=== PATIENT | male | born 1945 | race African-American/Black ===

== ENCOUNTER 2016-10-31 11:04 | Inpatient (IN) ==
[2016-10-31] MEDS ORDERED: diphenhydrAMINE CAP 25 MG CAPSULE PO PRN (12:17)
[2016-10-31] MEDS ORDERED: BISACODYL 5 MG TABLET PO PRN (12:17)
[2016-10-31] MEDS ORDERED: ZALEPLON 5 MG CAPSULE PO PRN (12:17)
[2016-10-31] MEDS ORDERED: guaiFENesin/DM ER 600-30 MG TABLET PO PRN (12:17)
[2016-10-31] MEDS ORDERED: DOCUSATE SODIUM 100 MG CAPSULE PO PRN (12:17)
[2016-10-31] MEDS ORDERED: ONDANSETRON 4 MG/2 ML VIAL IV PRN (12:17)
[2016-10-31] MEDS ORDERED: ACETAMINOPHEN 325 MG TABLET PO PRN ×2 (12:17→15:51)
[2016-10-31] MEDS ORDERED: LACTULOSE 20 GM/30 ML UDCUP PO PRN (12:17)
--- NOTE | 2016-10-31 15:38 | Nephrology History & Physical ---
History of Present Illness Chief complaint: Pain and weakness History of present illness: Mr. Orozco is a 71 year old male who I follow in the outpatient setting for chronic kidney disease. The patient was seen in my office today. He complains of pain and weakness that started about a week ago. The patient states his pain started in his right foot and migrated up and his right leg going into his abdomen and into his left chest area over the past few days. The patient is also had decreased strength and decreased appetite during this time. The patient has been seen and the emergency room 2 in the past few days. He was given some antibiotics about a week ago and received some kind of shot yesterday in the emergency room. The patient also complains of shortness of breath during this time. The patient is taking Lasix as well as a lipid- lowering agent in the form of Lipitor he also is on Neurontin and was recently prescribed some tramadol. He denies any fever or chills. ROS: Head -positive headaches ENT -positive sore throat Lymphatics - denies lymphadenopathy Hematology - denies bleeding problems Heart - denies chest pain Lungs -positive shortness of breath Abdomen -positive abdominal pain Musculoskeletal -positive arthritis Skin - denies rash Neurology - denies stroke General - denies fever PE: General: in no acute distress Eyes: Pupils are round and reactive, conjunctivae are clear ENT: Nose is clear, O/P is benign Neck: Supple, no thyromegaly Lymphatics: No cervical, supraclavicular or axillary adenopathy Heart: Regular rate and rhythm, no edema Lungs: Clear to auscultation anteriorly, chest expansion symmetric Abdomen: Soft, normoactive bowel sounds, no hepatomegaly Musculoskeletal: No joint erythema or effusions or joint asymmetry Skin: Normal turgor, normal hydration, no rash Neuro/Psych: Alert and cooperative with poor insight Home Medications Medication Instructions Recorded Confirmed Type Amlodipine Besylate 5 mg PO DAILY 10/31/16 10/31/16 History Amlodipine Besylate 10 mg PO DAILY 10/31/16 10/31/16 History Aspirin [Ecotrin] 81 mg PO DAILY 10/31/16 10/31/16 History Atorvastatin Calcium 40 mg PO DAILY 10/31/16 10/31/16 History Furosemide [Furosemide] 40 mg PO DAILY 10/31/16 10/31/16 History Gabapentin [Gabapentin] 300 mg PO BID 10/31/16 10/31/16 History Isosorbide Mononitrate [Imdur] 30 mg PO DAILY 10/31/16 10/31/16 History Nebivolol [Bystolic] 10 mg PO DAILY 10/31/16 10/31/16 History Ranolazine [Ranexa] 500 mg PO BID 10/31/16 10/31/16 History Sodium Bicarb Tab 650 mg PO BID 10/31/16 10/31/16 History traMADol/ACETAMINOPH 37.5-325 1 tablet PO Q6H PRN 10/31/16 10/31/16 History [Ultracet] Allergies Allergy/AdvReac Type Severity Reaction Status Date / Time meperidine [From Demerol] AdvReac HIVES Verified 10/28/16 13:56 Medical,Surgical,& Family Hx - Medical History Cardio: History of: CHF, Hypertension HEENT: History of: Eye Problem (glasses) Rheumatology: History of;: Gout Renal: History of: Renal Failure Gastrointestinal: History of: GERD, Hemorrhoids Musculoskeletal: History of: Back/Neck Problems (back surgery) - Family History Family History: Reports;: Family Diabetes, Family Hypertension - Social History Smoking Status: Current every day smoker Frequency of Alcohol Use: None Exam - Nephrology - Vital Signs Vital signs: Vital Signs Temp Pulse Resp BP Pulse Ox 10/31/16 12:22 99.4 F 58 L 17 147/77 97 Assessment and Plan (1) Kidney disease, chronic, stage IV (GFR 15-29 ml/min) Status: Acute Assessment and plan: This patient's creatinine is increased to 6 mg/dL from around 5 mg/dL a month or 2 ago. The patient has had some decreased appetite and feeling weak lately I wonder if he is volume depleted. I am going to give him some normal saline at 125 cc an hour for the next 12-24 hours. Current Visit: Yes (2) Hypertension Status: Acute Assessment and plan: I am going to hold his Lasix, we may also need to decrease some of his rate lowering antihypertensives due to his heart rate being 58 currently and his associated symptoms of weakness. Current Visit: Yes (3) Hyperlipidemia Status: Acute Assessment and plan: I am going to hold his lipid-lowering agents due to his complaints of musculoskeletal pain Current Visit: Yes (4) History of congestive heart failure Status: Acute Assessment and plan: Patient has complaints of dyspnea on exertion presently, I am going to check an echocardiogram. Current Visit: Yes (5) Arthritis Status: Acute Current Visit: No
[2016-10-31] MEDS ORDERED: traMADol 50 MG TABLET PO PRN (15:43)
[2016-10-31] MEDS ORDERED: hydrALAZINE 10 MG TABLET PO PRN (15:45)
[2016-10-31] MEDS: SODIUM CHLORIDE 0.9% 1,000 ML IV SCH ×2 (15:47→22:41)
[2016-10-31] MEDS: GABAPENTIN 300 MG CAPSULE PO SCH (20:59)
[2016-10-31] MEDS: SODIUM BICARBONATE 650 MG TABLET PO SCH (20:59)
[2016-10-31] MEDS: RANOLAZINE 500 MG TABLET PO SCH (20:59)
[2016-11-01 03:43] LABS: Basophils % 0.3 % (0.0-0.8); Eosinophils # 0.8 10*3/uL (0.0-0.87); Eosinophils % 10.6 % (0.00-10.9); Hematocrit 28.4 VOL% (42.0-52.0); Hemoglobin 8.6 GM/DL (14.0-18.0); Immature Granulocytes % 0.6 %; Immature Granulocytes Absolute 0.05 #; Lymphocytes # 4.2 10*3/uL (1.4-4.0); Lymphocytes % 53.7 % (21.2-54.2); Mean Corpuscular HGB Conc 30.3 GM/DL (32-36); Mean Corpuscular Hemoglobin 28 PG (27-34); Mean Corpuscular Volume 92.2 FL (87-102); Mean Platelet Volume 12.6 FL (9.6-12.0); Monocytes # 0.5 10*3/uL (0.11-0.8); Monocytes % 6.5 % (1.7-12.7); NRBC # 0.02 10*3/uL; Neutrophils # 2.2 10*3/uL (1.4-7.4); Neutrophils % 28.3 % (38.7-73.9); Platelet Count 151 T/CUMM (130-400); Red Blood Count 3.08 MC/CUMM (3.8-5.5); Red Cell Distribution Width 13.9 % (9.3-17.3); White Blood Count 7.8 T/CUMM (4-12)
[2016-11-01 04:22] LABS: Alanine Aminotransferase 26 U/L (16-61); Albumin 2.8 G/DL (3.4-5.0); Alkaline Phosphatase 81 U/L (45-117); Aspartate Amino Transferase 30 U/L (0-37); Blood Urea Nitrogen 59 MG/DL (7-18); Cholesterol 120 MG/DL (50-200); Free T4 (Free Thyroxine) 1.07 NG/DL (0.76-1.46); Glucose 72 MG/DL (74-106); HDL Cholesterol 23 MG/DL (40-60); Osmolality,Calculated 301.8 MOS/KG (273-304); Phosphorous 2.9 MG/DL (2.5-4.9); Potassium 5.2 MMOL/L (3.5-5.1); Risk Ratio 5.22; Sodium 144 MMOL/L (136-145); Total Protein 5.8 G/DL (6.4-8.3); Triglycerides 230 MG/DL (2-150); Troponin I Only 0.033 NG/ML (0.00-0.045)
[2016-11-01 06:07] LABS: Eosinophils 5 % (0-10); Lymphocytes 55 % (20-55); Myelocytes 3 %; Platelet Estimate Adequate; Segmented Neutrophils 32 % (50-85); Total Cells Counted 100
[2016-11-01] MEDS: SODIUM CHLORIDE 0.9% 1,000 ML IV SCH ×3 (06:34→18:42)
[2016-11-01] MEDS: amLODIPine 5 MG TABLET PO SCH (09:51)
[2016-11-01] MEDS: GABAPENTIN 300 MG CAPSULE PO SCH ×2 (09:51→22:06)
[2016-11-01] MEDS: PANTOPRAZOLE 40 MG TABLET PO SCH (09:51)
[2016-11-01] MEDS: RANOLAZINE 500 MG TABLET PO SCH ×2 (09:51→22:06)
[2016-11-01] MEDS: ASPIRIN EC 81 MG TABLET PO SCH (09:51)
[2016-11-01] MEDS: SODIUM BICARBONATE 650 MG TABLET PO SCH ×2 (09:51→22:06)
[2016-11-01] MEDS: NEBIVOLOL 5 MG TABLET PO SCH (09:51)
[2016-11-01] MEDS: ISOSORBIDE MONONITRATE 30 MG TABLET PO SCH (09:51)
--- NOTE | 2016-11-01 13:55 | ECHO Report ---
Petty Orozco Exam Date: 11/01/2016 10:52 Referring Physician: Technologist: Dorinda SOOD Age: 71 Ht (in): Wt (lb): Gender: M Exam Location: [facility] Echo Indications: CHF, Hyperlipidemia, HTN, CKD BP: / HR: Rhythm: Sinus Technical Quality: IMPRESSIONS Technically adequate study Normal chamber sizes Normal LV systolic function with ejection fraction estimated be 65% without segmental wall motion normality Aortic sclerosis without stenosis 1+ mitral and tricuspid regurgitation with RVSP 22 mmHg plus RAP MEASUREMENTS (Male / Female) Normal Values 2D ECHO LV Diastolic Diameter PLAX 3.1 cm 4.2 - 5.9 / 3.9 - 5.3 cm LV Systolic Diameter PLAX 1.7 cm LV Fractional Shortening PLAX 43.6 % IVS Diastolic Thickness 1.8 cm 0.6 - 1.0 / 0.6 - 0.9 cm LVPW Diastolic Thickness 1.1 cm 0.6 - 1.0 / 0.6 - 0.9 cm RV Internal Dim ED PLAX 2.6 cm Aortic Root Diameter 2.7 cm LA Systolic Diameter LX 3.5 cm 3.0 - 4.0 / 2.7 - 3.8 cm DOPPLER TR Peak Velocity 232.0 cm/s TR Peak Gradient 21.5 mmHg FINDINGS Left Ventricle Normal left ventricular cavity size. Mild concentric left ventricular hypertrophy.left ventricular ejection fraction is estimated at Right Ventricle Normal right ventricular size. Right Atrium Normal right atrial size. Left Atrium Normal left atrial size. Mitral Valve Mild mitral valve sclerosis. Mild mitral valve regurgitation. Aortic Valve Mild aortic valve sclerosis without stenosis. Tricuspid Valve Morphologically normal tricuspid valve. Mild tricuspid valve regurgitation. Tricuspid regurgitation velocities suggest a PAP of 21.5 mmHg + RAP. Pulmonic Valve Morphologically normal pulmonic valve. Pericardium No pericardial effusion. Aorta Normal size aortic root and proximal ascending aorta. Omar Hickey (Electronically Signed) Final Date: 01 November 2016 13:54
--- NOTE | 2016-11-01 17:50 | Nephrology Progress Note ---
Nephrology - PN: Subj Interval history: Patient complains of occasional left-sided chest pain. He states it is fleeting in nature lasting a few seconds. Review of systems GI denies nausea vomiting Physical exam general the patient is in no acute distress he has no pitting edema, his chest pain is not reproduced with palpation Assessment/plan 1. Acute renal failure on chronic renal failure-this patient's creatinine is improved with IV fluids 2. Body aches-this patient's diffuse body aches have improved with IV fluids 3. Hypertension this is controlled 4. Anemia-patient's hematocrit is 28% Exam (PN)-Nephrology - Vital Signs Vital signs: Period Temp Pulse Resp BP Sys/[place] Pulse Ox Last 24 Hr 97.3 F-99 F 53-77 16-19 127-146/63-79 94-100 - Lab 11/01/16 02:48 11/01/16 02:48 Most recent lab results Calcium 7.0 MG/DL (8.5-10.1) L 11/01/16 02:48 Phosphorus 2.9 MG/DL (2.5-4.9) 11/01/16 02:48 Magnesium 2.0 MG/DL (1.8-2.4) 11/01/16 02:48 Assessment and Plan (1) Kidney disease, chronic, stage IV (GFR 15-29 ml/min) Status: Acute Assessment and plan: This patient's creatinine is increased to 6 mg/dL from around 5 mg/dL a month or 2 ago. The patient has had some decreased appetite and feeling weak lately I wonder if he is volume depleted. I am going to give him some normal saline at 125 cc an hour for the next 12-24 hours. Current Visit: Yes (2) Hypertension Status: Acute Assessment and plan: I am going to hold his Lasix, we may also need to decrease some of his rate lowering antihypertensives due to his heart rate being 58 currently and his associated symptoms of weakness. Current Visit: Yes (3) Hyperlipidemia Status: Acute Assessment and plan: I am going to hold his lipid-lowering agents due to his complaints of musculoskeletal pain Current Visit: Yes (4) History of congestive heart failure Status: Acute Assessment and plan: Patient has complaints of dyspnea on exertion presently, I am going to check an echocardiogram. Current Visit: Yes (5) Arthritis Status: Acute Current Visit: No
[2016-11-02] MEDS: SODIUM CHLORIDE 0.9% 1,000 ML IV SCH (02:30)
[2016-11-02 03:44] LABS: Basophils % 0.2 % (0.0-0.8); Eosinophils # 0.7 10*3/uL (0.0-0.87); Eosinophils % 9.1 % (0.00-10.9); Hematocrit 25.5 VOL% (42.0-52.0); Hemoglobin 7.6 GM/DL (14.0-18.0); Immature Granulocytes % 0.7 %; Immature Granulocytes Absolute 0.06 #; Lymphocytes # 4.5 10*3/uL (1.4-4.0); Lymphocytes % 55.7 % (21.2-54.2); Mean Corpuscular HGB Conc 29.8 GM/DL (32-36); Mean Corpuscular Hemoglobin 28 PG (27-34); Mean Corpuscular Volume 92.7 FL (87-102); Mean Platelet Volume 12.8 FL (9.6-12.0); Monocytes # 0.5 10*3/uL (0.11-0.8); Monocytes % 6.2 % (1.7-12.7); NRBC # 0.03 10*3/uL; Neutrophils # 2.3 10*3/uL (1.4-7.4); Neutrophils % 28.1 % (38.7-73.9); Platelet Count 140 T/CUMM (130-400); Red Blood Count 2.75 MC/CUMM (3.8-5.5); Red Cell Distribution Width 14.1 % (9.3-17.3); White Blood Count 8.1 T/CUMM (4-12)
[2016-11-02 04:07] LABS: Calcium 6.6 MG/DL (8.5-10.1); Osmolality,Calculated 301.4 MOS/KG (273-304); Potassium 5.2 MMOL/L (3.5-5.1)
[2016-11-02 04:24] LABS: Band Neutrophils 2 % (0-10); Eosinophils 3 % (0-10); Lymphocytes 57 % (20-55); Segmented Neutrophils 33 % (50-85); Smudge Cells Moderate; Total Cells Counted 100
[2016-11-02 04:25] LABS: Platelet Estimate Normal
[2016-11-02] MEDS: SODIUM BICARBONATE 650 MG TABLET PO SCH ×2 (09:21→22:07)
[2016-11-02] MEDS: RANOLAZINE 500 MG TABLET PO SCH ×2 (09:21→22:06)
[2016-11-02] MEDS: amLODIPine 5 MG TABLET PO SCH (09:21)
[2016-11-02] MEDS: GABAPENTIN 300 MG CAPSULE PO SCH ×2 (09:21→22:06)
[2016-11-02] MEDS: PANTOPRAZOLE 40 MG TABLET PO SCH (09:21)
[2016-11-02] MEDS: NEBIVOLOL 5 MG TABLET PO SCH (09:21)
[2016-11-02] MEDS: ISOSORBIDE MONONITRATE 30 MG TABLET PO SCH (09:21)
[2016-11-02] MEDS: ASPIRIN EC 81 MG TABLET PO SCH (09:21)
--- NOTE | 2016-11-02 10:35 | Nephrology Progress Note ---
Nephrology - PN: Subj Interval history: Patient complains of abdominal pain this morning. Review of systems cardiac- patient complains of left-sided chest pain when asked about it. Physical exam general the patient is in no acute distress Assessment/plan 1. Acute renal failure-this patient's creatinine is improved to 3.3 mg/dL with saline, I think he was volume depleted. 2. Abdominal pain-patient has a significant anemia of 25%, he states he has not had any endoscopy, I am going to ask GI medicine to see him in the morning, I will check stool for blood 3. Chest pain-this patient has mild tricuspid and mitral regurgitation he also has bradycardia, I am going to ask cardiology to evaluate him in the morning. 4. Chronic pain-this patient had some cold symptoms about a week or so ago and was having diffuse pain, I think his volume depletion is probably secondary to his viral syndrome, some of his body aches and pains may be related to this as well. Of note the patient has a history of chronic pain. Exam (PN)-Nephrology - Vital Signs Vital signs: Period Temp Pulse Resp BP Sys/[place] Pulse Ox Last 24 Hr 97.3 F-99.5 F 51-77 16-20 107-146/46-79 94-100 - Lab 11/02/16 03:23 11/02/16 03:23 Most recent lab results Calcium 6.6 MG/DL (8.5-10.1) L 11/02/16 03:23 Phosphorus 2.9 MG/DL (2.5-4.9) 11/01/16 02:48 Magnesium 2.0 MG/DL (1.8-2.4) 11/01/16 02:48 Assessment and Plan (1) Kidney disease, chronic, stage IV (GFR 15-29 ml/min) Status: Acute Assessment and plan: This patient's creatinine is increased to 6 mg/dL from around 5 mg/dL a month or 2 ago. The patient has had some decreased appetite and feeling weak lately I wonder if he is volume depleted. I am going to give him some normal saline at 125 cc an hour for the next 12-24 hours. Current Visit: Yes (2) Hypertension Status: Acute Assessment and plan: I am going to hold his Lasix, we may also need to decrease some of his rate lowering antihypertensives due to his heart rate being 58 currently and his associated symptoms of weakness. Current Visit: Yes (3) Hyperlipidemia Status: Acute Assessment and plan: I am going to hold his lipid-lowering agents due to his complaints of musculoskeletal pain Current Visit: Yes (4) History of congestive heart failure Status: Acute Assessment and plan: Patient has complaints of dyspnea on exertion presently, I am going to check an echocardiogram. Current Visit: Yes (5) Arthritis Status: Acute Current Visit: No
[2016-11-02] MEDS: SODIUM BICARB INJ 50 MEQ in DEXTROSE 5% 1,000 ML IV SCH (22:06)
--- NOTE | 2016-11-03 09:08 | Gastrointestinal Consult Note ---
Assessment and Plan (1) Generalized abdominal pain Status: Acute Assessment and plan: I suspect this may be due to chronic constipation as the patient has pain both in his right lower quadrant and epigastric region although the latter may certainly be related to his anemia and aspirin intake on a daily basis. He seems to feel better when he is empty of stool and typically has only one bowel movement per week. We will be doing a bowel prep today as I will make him n.p.o. after this breakfast meal and hopefully be able to get him clean enough to perform colonoscopy tomorrow. If the colonoscopy fails to show bleeding source we may likely follow this with a upper endoscopy the following day. Risks and benefits of the procedure include but are not limited to: Bleeding, infection, perforation, cardiac and pulmonary compromise. He is at higher risk because of his renal dysfunction. Current Visit: Yes (2) Chronic constipation Status: Acute Assessment and plan: Patient goes to the bathroom once weekly. He would be a good candidate for Linzess 290 mg daily 30 minutes prior to supper or MiraLAX twice daily repeat 3 times daily or twice daily either one. We will likely start with MiraLAX when he has an outpatient status. Would like to keep him from having excessive magnesium intake due to his kidney dysfunction. Current Visit: Yes (3) Guaiac positive stools Status: Acute Assessment and plan: It is unclear whether this is due to a bleeding lesion either in his colon or upper GI tract. The patient does take aspirin on a routine basis and we will hold this now. Anticipate colonoscopy tomorrow, hopefully we can rule out colorectal cancer and AVMs as a potential source for the blood loss. Again, I expect the pain is likely secondary to constipation. Current Visit: Yes (4) Anemia Status: Acute Assessment and plan: The patient certainly has anemia secondary to his renal dysfunction but with guaiac positive stools this is likely multifactorial. We will look for in the colon initially and possibly follow this with upper endoscopy if nothing is found. Current Visit: Yes History of Present Illness Chief complaint: Right lower quadrant pain greater than epigastric pain, anemia , guaiac posi History of present illness: Mr. Orozco is a 71 year old male Who has a history of chronic kidney disease and was having pain and weakness starting a week prior to his hospitalization according to Dr. Briceño's notes. Patient states that he has abdominal pain spread through most of his abdomen centering mostly in the epigastric region but also right lower quadrant but also in the epigastric region with some mild reflux present. He does not have any nausea or vomiting he does not have any decrease in his appetite. He has not noticed any black stools or bright red blood per rectum. He states that he does have approximately 1 bowel movement per week as he is frequently constipated. He takes stool softeners and some milk of magnesia for this. The patient does take some aspirin each day and is noted to be guaiac positive on his stools. Hematocrit is down to 25%. He does not recall a family history of colon cancer or colon polyps. He has never had a colonoscopy himself. He does not have reflux. Home Medications Medication Instructions Recorded Confirmed Type Amlodipine Besylate 5 mg PO DAILY 10/31/16 10/31/16 History Amlodipine Besylate 10 mg PO DAILY 10/31/16 10/31/16 History Aspirin [Ecotrin] 81 mg PO DAILY 10/31/16 10/31/16 History Atorvastatin Calcium 40 mg PO DAILY 10/31/16 10/31/16 History Furosemide [Furosemide] 40 mg PO DAILY 10/31/16 10/31/16 History Gabapentin [Gabapentin] 300 mg PO BID 10/31/16 10/31/16 History Isosorbide Mononitrate [Imdur] 30 mg PO DAILY 10/31/16 10/31/16 History Nebivolol [Bystolic] 10 mg PO DAILY 10/31/16 10/31/16 History Ranolazine [Ranexa] 500 mg PO BID 10/31/16 10/31/16 History Sodium Bicarb Tab 650 mg PO BID 10/31/16 10/31/16 History traMADol/ACETAMINOPH 37.5-325 1 tablet PO Q6H PRN 10/31/16 10/31/16 History [Ultracet] Allergies Allergy/AdvReac Type Severity Reaction Status Date / Time meperidine [From Demerol] AdvReac HIVES Verified 10/28/16 13:56 Medical,Surgical,& Family Hx - Medical History Cardio: History of: CHF, Hypertension HEENT: History of: Eye Problem (glasses), Dental Problems (dentures) Rheumatology: History of;: Gout Renal: History of: Renal Failure Gastrointestinal: History of: GERD, Hemorrhoids Musculoskeletal: History of: Back/Neck Problems (back surgery) - Surgical History Reproductive Surgeries: Surgical HX of;: Prostate Surgery (cancer) - Family History Family History: Reports;: Family Cancer, Family Diabetes, Family Heart Disease, Family Hypertension, Family Stroke - Social History Smoking Status: Current every day smoker Frequency of Alcohol Use: None Type of Drug Use: None Review of systems: Constitutional: Denies fever, chills, nausea, and vomiting Eyes: Denies dry eyes, and scleral icterus HENT: Denies headaches Cardiovascular: Denies acute chest pain and claudication Respiratory: Mild shortness of breath, but no wheezing, and difficulty breathing, denies cough Gastrointestinal: As noted in the HPI Genitourinary: Denies dysuria and hematuria Neurologic: Denies vision loss, and loss of sensation Musculoskeletal: Denies joint swelling, but does have some joint stiffness, and muscular weakness Psychiatric: Denies depression and yaakov symptoms Heme-Lymph: Denies easy bruising, lymph node enlargement or tenderness, night sweats, excessive bleeding Allergies-immunologic: Denies pruritus and rhinorrhea Exam - Constitutional Vitals: Period Temp Pulse Resp BP Sys/[place] Pulse Ox Last 24 Hr 98 F-98.8 F 56-66 16-19 127-143/61-73 94-98 Exam: Constitutional: Well-developed, well-nourished, alert, and in no acute distress Head and face: Head: Normocephalic atraumatic Eyes: Conjunctiva without injection, no gross scleral icterus, pupils equal and round bilaterally Ears: Intact to conversation in both ears Nose: External appearance is normal, nares patent Mouth: Oral mucous membranes moist without erythema dentition noted to be without erosion Neck: Normal appearance, no masses or tenderness, trachea midline Thyroid: Gland midline and appropriate size for age Respiratory: Normal respiratory effort, clear to auscultation without wheezes, rhonchi or rales Cardiovascular: Regular rate and rhythm, normal S1, S2, the exam is without rubs, murmurs or gallops. Gastrointestinal: Nontender to palpation, normal active bowel sounds, tone normal without rigidity or guarding, no masses present, no hepatomegaly, no spleen tip felt. Rectal exam shows good tone stool was present brown and grossly guaiac positive. Lymphatic: Neck without adenopathy, axilla without lymphadenopathy present Musculoskeletal: Right and left lower extremities without evidence of edema Skin and subcutaneous tissue: No rashes or ulcerations noted, normal skin turgor, digits and nails without clubbing/cyanosis/deformities. Neurologic: The patient is grossly oriented to person place and time, cranial nerves show tongue movements are normal with normal tongue extrusion midline, light touch sensation is intact. Psychiatric: No hallucinations or delusions are present, does not appear depressed Results - Labs CBC & BMP: 11/02/16 03:23 11/02/16 03:23
[2016-11-03] MEDS: RANOLAZINE 500 MG TABLET PO SCH ×2 (09:39→22:31)
[2016-11-03] MEDS: PANTOPRAZOLE 40 MG TABLET PO SCH (09:39)
[2016-11-03] MEDS: ISOSORBIDE MONONITRATE 30 MG TABLET PO SCH (09:39)
[2016-11-03] MEDS: GABAPENTIN 300 MG CAPSULE PO SCH ×2 (09:39→22:31)
[2016-11-03] MEDS: NEBIVOLOL 5 MG TABLET PO SCH (09:39)
[2016-11-03] MEDS: amLODIPine 5 MG TABLET PO SCH (09:39)
[2016-11-03] MEDS: SODIUM BICARBONATE 650 MG TABLET PO SCH ×2 (09:39→22:31)
[2016-11-03] MEDS: BISACODYL 5 MG TABLET PO SCH ×2 (09:41→18:12)
[2016-11-03] MEDS: ASPIRIN EC 81 MG TABLET PO SCH (09:42)
--- NOTE | 2016-11-03 10:33 | Nephrology Progress Note ---
Nephrology - PN: Subj Interval history: Patient states his chest pain is better. Review of systems musculoskeletal- patient complains of leg pains and weakness when he walks lately. Physical exam general the patient is in no acute distress Assessment/plan 1. Volume depletion-patient responded to IV fluids he is feeling better and his creatinine is much improved 2. Acute renal failure-patient's creatinine is down to 3.3 mg/dL from around 6 mg/dL on presentation 3. Hypertension is controlled 4. Anemia-patient's hematocrit around 25%, the patient is to get an endoscopic workup by Dr. Bailey. 5. Leg weakness-this patient may have leg weakness associated with his anemia as well as his bradycardia, I will see what cardiology thinks as far as his bradycardia if they do not feel there is any major issues here then we will probably give him a blood transfusion and see if this helps his leg weakness 6. Bradycardia-I am decreased the patient's Bystolic to 5 mg daily from 10 mg daily, I will probably continue to wean him off of this over the next week or 2. Exam (PN)-Nephrology - Vital Signs Vital signs: Period Temp Pulse Resp BP Sys/[place] Pulse Ox Last 24 Hr 98 F-98.8 F 56-66 16-19 127-143/61-73 94-98 - Lab 11/02/16 03:23 11/02/16 03:23 Most recent lab results Calcium 6.6 MG/DL (8.5-10.1) L 11/02/16 03:23 Phosphorus 2.9 MG/DL (2.5-4.9) 11/01/16 02:48 Magnesium 2.0 MG/DL (1.8-2.4) 11/01/16 02:48 Assessment and Plan (1) Kidney disease, chronic, stage IV (GFR 15-29 ml/min) Status: Acute Assessment and plan: This patient's creatinine is increased to 6 mg/dL from around 5 mg/dL a month or 2 ago. The patient has had some decreased appetite and feeling weak lately I wonder if he is volume depleted. I am going to give him some normal saline at 125 cc an hour for the next 12-24 hours. Current Visit: Yes (2) Hypertension Status: Acute Assessment and plan: I am going to hold his Lasix, we may also need to decrease some of his rate lowering antihypertensives due to his heart rate being 58 currently and his associated symptoms of weakness. Current Visit: Yes (3) Hyperlipidemia Status: Acute Assessment and plan: I am going to hold his lipid-lowering agents due to his complaints of musculoskeletal pain Current Visit: Yes (4) History of congestive heart failure Status: Acute Assessment and plan: Patient has complaints of dyspnea on exertion presently, I am going to check an echocardiogram. Current Visit: Yes (5) Arthritis Status: Acute Current Visit: No
--- NOTE | 2016-11-03 10:42 | Cardiology Consult Note ---
Assessment and Plan - Time spent with patient Time spent with patient: Greater than 30 minutes (chart review, documentation, interview/physical and orders) (1) PVD (peripheral vascular disease) Status: Chronic Current Visit: Yes (2) CAD (coronary artery disease) Status: Chronic Current Visit: Yes Qualifiers: Coronary Disease-Associated Artery/Lesion type: [place] artery [place] vs. transplanted heart: [place] heart Associated angina: without angina Qualified Code(s): I25.10 - Atherosclerotic heart disease of [place] coronary artery without angina pectoris (3) Kidney disease, chronic, stage IV (GFR 15-29 ml/min) Status: Chronic Current Visit: Yes (4) Hypertension Status: Acute Current Visit: Yes (5) Hyperlipidemia Status: Chronic Current Visit: Yes Qualifiers: Hyperlipidemia type: pure hypercholesterolemia Qualified Code(s): E78.00 - Pure hypercholesterolemia, unspecified; E78.0 - Pure hypercholesterolemia (6) Generalized abdominal pain Status: Chronic Current Visit: Yes (7) Chronic constipation Status: Chronic Current Visit: Yes (8) Anemia Status: Chronic Current Visit: Yes Qualifiers: Other causes of anemia: chronic disease, kidney History of Present Illness - Data of Consult Patient: known to practice within the last 3 years Consult date: 11/03/16 Requesting Physician: Nik Briceño - Consult Narrative Reason for consult: Bradycardia shortness of breath chest pain History of present illness: Mr. Orozco is a 71 year old male whom I have seen in the remote past. The last record I can see I saw him in 2010. He has now been followed by Dr. Asencio at [facility]. Patient's medication regimen would suggest that he has some degree of coronary artery disease that cannot be treated surgically, endovascularly and is currently on medical therapy. When I talked to the patient I actually do not get the story that he has any chest pain. He states that his legs limit his activity particularly his right leg. Has a history of significant amount of pelvic discomfort was felt to be related to his prostate as well. He has peripheral vessel disease and has previously had stenting of his lower extremities. He is now admitted with acute on chronic renal insufficiency which largely limits our evaluation of his lower extremity vasculature and any contrast for cardiac situation. His heart rate is in the 50s. He denies any chest pain to me. He quit smoking 2 weeks ago. CC: Nik Briceño MD - Home Medications and Allergies Home Medications: Home Medications Medication Instructions Recorded Confirmed Type Amlodipine Besylate 5 mg PO DAILY 10/31/16 10/31/16 History Amlodipine Besylate 10 mg PO DAILY 10/31/16 10/31/16 History Aspirin [Ecotrin] 81 mg PO DAILY 10/31/16 10/31/16 History Atorvastatin Calcium 40 mg PO DAILY 10/31/16 10/31/16 History Furosemide [Furosemide] 40 mg PO DAILY 10/31/16 10/31/16 History Gabapentin [Gabapentin] 300 mg PO BID 10/31/16 10/31/16 History Isosorbide Mononitrate [Imdur] 30 mg PO DAILY 10/31/16 10/31/16 History Nebivolol [Bystolic] 10 mg PO DAILY 10/31/16 10/31/16 History Ranolazine [Ranexa] 500 mg PO BID 10/31/16 10/31/16 History Sodium Bicarb Tab 650 mg PO BID 10/31/16 10/31/16 History traMADol/ACETAMINOPH 37.5-325 1 tablet PO Q6H PRN 10/31/16 10/31/16 History [Ultracet] Allergies/Adverse Reactions: Allergies Allergy/AdvReac Type Severity Reaction Status Date / Time meperidine [From Demerol] AdvReac HIVES Verified 10/28/16 13:56 - Constitutional Constitutional: Present: fatigue, weight loss. Absent: anorexia, fever(s), frequent falls, increased appetite, lethargy - EENT Eyes: Absent: blurry vision, diplopia Ears: Absent: decreased hearing, ear discharge Nose, mouth and throat: Absent: dysphagia, epistaxis - Cardiovascular Cardiovascular: Present: claudication, dyspnea, dyspnea on exertion. Absent: chest pain at rest, chest pain with activity, diaphoresis, edema, orthopnea - Respiratory Respiratory: Present: cough, dyspnea, dyspnea on exertion - Gastrointestinal Gastrointestinal: Present: abdominal pain, constipation - Genitourinary Genitourinary: Present: other (Pelvic pain) - Musculoskeletal Musculoskeletal: Present: arthralgias, back pain - Neurological Neurological: Present: memory loss. Absent: abnormal speech, behavioral changes , confusion, disequilibrium - Psychiatric Psychiatric: Absent: anxiety, auditory hallucinations, depression - Endocrine Endocrine: Present: cold intolerance. Absent: heat intolerance - Hematologic/Lymphatic Hematologic/Lymphatic: Absent: easy bleeding, easy bruising Medical,Surgical,& Family Hx - Medical History Cardio: History of: CHF, CAD, Hypertension, PVD HEENT: History of: Eye Problem (glasses), Dental Problems (dentures) Rheumatology: History of;: Gout Renal: History of: Renal Failure Gastrointestinal: History of: GERD, Hemorrhoids Musculoskeletal: History of: Back/Neck Problems (back surgery) - Surgical History Reproductive Surgeries: Surgical HX of;: Prostate Surgery (cancer and lots of pelvic pain post prostatectomy) - Family History Family History: Reports;: Family Cancer, Family Diabetes, Family Heart Disease, Family Hypertension, Family Stroke - Social History Smoking Status: Current every day smoker Frequency of Alcohol Use: None Type of Drug Use: None Lives With:: Alone Functional capacity: independent ambulation Physical Examination Vital Signs Temp Pulse Resp BP Pulse Ox 99.4 F 58 L 17 147/77 97 10/31/16 12:22 10/31/16 12:22 10/31/16 12:22 10/31/16 12:22 10/31/16 12:22 General: Present: Appears Well HEENT: Present: Normocephaly (mild temporal atrophy), Mucus Membranes Moist Cardiac: Present: Reg Rate and Rhythm, S1/S2, S4 Lungs: Present: Normal Exam Neuro: Present: Cranial Nerve 2-12 Intact Abdomen: Present: Soft, Active Bowel Sounds Extremities: Present: Cool, Other (1+ FA on the left and weaker on the right. ) . Absent: Edema Result/EKG - Labs CBC & BMP: 11/02/16 03:23 11/02/16 03:23
--- NOTE | 2016-11-03 12:37 | EKG Report ---
Stationary ECG Study [facility] Test Date: 11/03/2016 12:36:45 PM Pat Name: YVAN GARCIA Department: Room: 336 Gender: M Inspector Tubes: CAN : 1945 Requested by: Bobbi Mcduffie Order Number: [id number] Reading MD: GLADYS VILLAR Intervals [place] Rate: 66 P: 55 CA: 201 QRS: 19 QRSD: 97 T: -40 QT: 415 QTc: 429 Interpretive Statements SINUS RHYTHM ST DEVIATION AND MODERATE T-WAVE ABNORMALITY, CONSIDER INFERIOR ISCHEMIA Electronically Signed On 11-03-16 15:32:25 CDT by GLADYS VILLAR [email or web address]
[2016-11-03] MEDS ORDERED: POLYETHYLENE GLYCOL 3350/ELECTROLYTES 4,000 ML BOTTLE PO ONE (18:00)
[2016-11-03] MEDS: SODIUM BICARB INJ 50 MEQ in DEXTROSE 5% 1,000 ML IV SCH (19:19)
[2016-11-03] MEDS ORDERED: MAGNESIUM CITRATE 300 ML BOTTLE PO ONE (21:00)
[2016-11-04] MEDS: BISACODYL 5 MG TABLET PO SCH (01:33)
[2016-11-04] MEDS ORDERED: LIDOCAINE 100 MG/5 ML SYRINGE ONE (08:03)
[2016-11-04] MEDS ORDERED: PROPOFOL 200 MG/20 ML VIAL IV ONE (08:03)
--- NOTE | 2016-11-04 08:19 | Operative Note ---
Date of procedure: 11/04/16 Pre-op diagnosis: Periumbilical pain, anemia 25.5%, guaiac positive stools, constipation Post-op diagnosis: other (Mild left-sided diverticulosis, and moderate sized internal hemorrhoids--possibly the source of the guaiac positive stools) Procedure: PROCEDURE: Colonoscopy REFERRING PHYSICIAN: Nik Briceño MD INDICATIONS: Constipation, periumbilical pain/generalized abdominal pain, anemia with hematocrit of 25.5% and guaiac positive stools. The prior H&P was reviewed and interrim changes are as noted: No change from GI consultation yesterday ENDOSCOPIST: Chintan Bailey MD ENDOSCOPE: Olympus Video 100 System colonoscope COLON PREPARATION: Golytely 4 liters and dulcolax 15 mg po [id number] x 3 ASA CLASS: 3 EXAM: CV: regular rate and rhythm Respiratory: Clear without wheezes Abdominal: active bowel sounds Rectal: Good tone, no fissures or fistulas MEDICATION: Per nursing anesthesia protocol, see their notes PROCEDURE: After discussion of the potential risks and benefits of colonoscopy, the informed consent was obtained, from patient or health care surrogate. The patient was then placed in the left lateral decubitus position where sedation was achieved as noted above. Rectal examination was followed by insertion of the colonoscope. The colonoscope was passed under direct visualization to the cecum. Advancement was facilitated by insertion/withdrawl techniques, abdominal pressure and patient positioning. Once the cecal pole was reached, slow withdrawal was performed with the findings as noted below. The patient tolerated the procedure well and without complication. QUALITY OF PREP: Excellent WITHDRAWL TIME: 8 minutes 3 seconds BIOPSIES: None obtained obtained PHOTOGRAPHS: Mild left-sided FINDINGS: The musoca appeared normal in the following regions: rectum, sigmoid colon, descending colon, splenic flexure, transverse colon, hepatic flexure, ascending colon and cecum. Position within the cecum was confirmed by ileocecal valve, appendiceal oriface, and the convergence of folds (crows foot) . No colitis, polyp, mass or AVM was noted throughout the colon. Mild left- sided diverticulosis noted. Moderate sized internal hemorrhoids noted on retroflex. Intubation of the TI was achieved x 5 cm with normal appearence IMPRESSION: Mild left-sided diverticulosis, and moderate sized internal hemorrhoids--possibly the source of the guaiac positive stools RECOMMENDATIONS: High fiber diet Repeat colonosocopy will be in 10 years given the appearance of today's colonoscopy Citrucel 1 tablespoon in 12 oz juice BID: 1 bottle: :11 Follow up by phone for biopsy results in 1-2 weeks by phone Chintan Bailey MD COPY TO: Nik Briceño MD Anesthesia: MAC Surgeon / Physician: Chintan Bailey Estimated blood loss: minimal Specimens: none sent Condition: stable Disposition: post procedure unit (G.I. Suite) Results - Labs CBC & BMP: 11/02/16 03:23 11/02/16 03:23 Discharge Plan - Discharge Medications No Action traMADol/ACETAMINOPH 37.5-325 [Ultracet] 1 tablet PO Q6H PRN PRN Reason: Pain Ranolazine [Ranexa] 500 mg PO BID Isosorbide Mononitrate [Imdur] 30 mg PO DAILY Sodium Bicarb Tab 650 mg PO BID Aspirin [Ecotrin] 81 mg PO DAILY Gabapentin [Gabapentin] 300 mg PO BID Nebivolol [Bystolic] 10 mg PO DAILY Furosemide [Furosemide] 40 mg PO DAILY Atorvastatin Calcium 40 mg PO DAILY Amlodipine Besylate 10 mg PO DAILY Amlodipine Besylate 5 mg PO DAILY - Follow Up or Referral - Forms/Instructions
--- NOTE | 2016-11-04 08:24 | Gastrointestinal Progress Note ---
Assessment and Plan (1) Generalized abdominal pain Status: Chronic Assessment and plan: I suspect this may be due to chronic constipation as the patient has pain both in his right lower quadrant and epigastric region although the latter may certainly be related to his anemia and aspirin intake on a daily basis. He seems to feel better when he is empty of stool and typically has only one bowel movement per week. We will be doing a bowel prep today as I will make him n.p.o. after this breakfast meal and hopefully be able to get him clean enough to perform colonoscopy tomorrow. If the colonoscopy fails to show bleeding source we may likely follow this with a upper endoscopy the following day. Risks and benefits of the procedure include but are not limited to: Bleeding, infection, perforation, cardiac and pulmonary compromise. He is at higher risk because of his renal dysfunction. 11/04/16--this patient has essentially a normal-looking colonoscopy without evidence of polyps, colitis, AVMs or other bleeding source. There is no evidence of cancer, there are moderate size internal hemorrhoids noted on retroflex thought to be a source of the guaiac positive stool. Given his abdominal pain and anemia I think it is reasonable to perform upper endoscopy with potential biopsies for sprue tomorrow morning. We will continue leave this patient on Protonix but advance his diet to renal diet making him n.p.o. after midnight for the above upper endoscopy tomorrow. If this appears to be normal I think you could likely be discharged from the hospital from a GI standpoint. No biopsies were taken during the colonoscopy. Current Visit: Yes (2) Chronic constipation Status: Chronic Assessment and plan: Patient goes to the bathroom once weekly. He would be a good candidate for Linzess 290 mg daily 30 minutes prior to supper or MiraLAX twice daily repeat 3 times daily or twice daily either one. We will likely start with MiraLAX when he has an outpatient status. Would like to keep him from having excessive magnesium intake due to his kidney dysfunction. 11/04/16--colonoscopy demonstrated no evidence of structural changes or kinking seen throughout the colon. This patient will likely do well with MiraLAX versus Linzess as an outpatient to control his underlying constipation. We will start with MiraLAX. Current Visit: Yes (3) Guaiac positive stools Status: Acute Assessment and plan: It is unclear whether this is due to a bleeding lesion either in his colon or upper GI tract. The patient does take aspirin on a routine basis and we will hold this now. Anticipate colonoscopy tomorrow, hopefully we can rule out colorectal cancer and AVMs as a potential source for the blood loss. Again, I expect the pain is likely secondary to constipation. 11/04/16--the source for the guaiac positive stools is unclear however the patient does have moderate size internal hemorrhoids noted on retroflex thought to be a potential source. Upper endoscopy is recommended at this point to look for other sources of the patient's hematocrit dropped to 25% aside from his renal dysfunction. Current Visit: Yes (4) Anemia Status: Chronic Assessment and plan: The patient certainly has anemia secondary to his renal dysfunction but with guaiac positive stools this is likely multifactorial. We will look for in the colon initially and possibly follow this with upper endoscopy if nothing is found. 11/04/16--We will proceed with upper endoscopy tomorrow as had been mentioned above. Colonoscopy is negative for bleeding source. Current Visit: Yes Qualifiers: Other causes of anemia: chronic disease, kidney Gastroenterology - PN: Subj Interval history: No new complaints, CBC not rechecked. We will recheck this tomorrow morning. Exam (Progress Note) - Constitutional Vitals: Period Temp Pulse Resp BP Sys/[place] Pulse Ox Last 24 Hr 96.3 F-98.7 F 53-68 17-18 131-145/60-74 96-98 General appearance: no acute distress - Respiratory Respiratory exam: Present: clear to auscultation bilaterally - Cardiovascular Cardiovascular exam: Present: regular rate and rhythm - GI/Abdominal GI/Abdominal exam: Present: normal bowel sounds, soft. Absent: distended, tenderness, rebound - Extremities Exam Extremities exam: Present: normal inspection - Neurological Exam Neurological exam: Present: alert, oriented X3, CN II-XII intact - Psychiatric Psychiatric exam: Present: normal affect, normal mood - Skin Skin exam: Present: warm Results - Labs CBC & BMP: 11/02/16 03:23 11/02/16 03:23
--- NOTE | 2016-11-04 08:30 | Anesthesia ---
Anesthesia Post OP - Post Ansesthetic Evaluation Patient seen in post op: Yes Resp: within normal limits CV: within normal limits Mental: within normal limits Temp: within normal limits [id number]: within normal limits Nausea and Vomiting: within normal limits Pain: within normal limits
[2016-11-04] MEDS: ISOSORBIDE MONONITRATE 30 MG TABLET PO SCH (10:37)
[2016-11-04] MEDS: NEBIVOLOL 5 MG TABLET PO SCH (10:37)
[2016-11-04] MEDS: SODIUM BICARBONATE 650 MG TABLET PO SCH ×2 (10:38→22:48)
[2016-11-04] MEDS: RANOLAZINE 500 MG TABLET PO SCH ×2 (10:38→22:48)
[2016-11-04] MEDS: amLODIPine 5 MG TABLET PO SCH (10:38)
[2016-11-04] MEDS: GABAPENTIN 300 MG CAPSULE PO SCH ×2 (10:38→22:48)
[2016-11-04] MEDS: PANTOPRAZOLE 40 MG TABLET PO SCH (10:38)
--- NOTE | 2016-11-04 10:58 | Cardiology Progress Note ---
Assessment and Plan - Time spent with patient Time spent with patient: Less than 30 minutes (1) PVD (peripheral vascular disease) Status: Chronic Current Visit: Yes (2) CAD (coronary artery disease) Status: Chronic Current Visit: Yes Qualifiers: Coronary Disease-Associated Artery/Lesion type: [place] artery [place] vs. transplanted heart: [place] heart Associated angina: without angina Qualified Code(s): I25.10 - Atherosclerotic heart disease of [place] coronary artery without angina pectoris (3) Kidney disease, chronic, stage IV (GFR 15-29 ml/min) Status: Chronic Current Visit: Yes (4) Hypertension Status: Acute Current Visit: Yes (5) Hyperlipidemia Status: Chronic Current Visit: Yes Qualifiers: Hyperlipidemia type: pure hypercholesterolemia Qualified Code(s): E78.00 - Pure hypercholesterolemia, unspecified; E78.0 - Pure hypercholesterolemia (6) Generalized abdominal pain Status: Chronic Current Visit: Yes (7) Chronic constipation Status: Chronic Current Visit: Yes (8) Anemia Status: Chronic Current Visit: Yes Qualifiers: Other causes of anemia: chronic disease, kidney Cardiology - PN: Subj Interval history: Mr. Gimenez has no complaints today. He is back from his colonoscopy he is alert and awake. He denies any chest pain or shortness of breath and he is maintaining a heart rate in the mid 60s to low 70s. No chest pain. 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 Have nothing further to add at this time and will sign off. If new problems arise please do not hesitate to call I will be glad to see. Exam (Progress Note) - Constitutional Vitals: Period Temp Pulse Resp BP Sys/[place] Pulse Ox Last 24 Hr 96.3 F-98.7 F 52-68 12-18 100-145/53-74 94-98 General appearance: normal weight - Head Head exam: Present: normal inspection - Eye Eye exam: Present: EOMI Pupils: Present: MARIN - Neck Neck exam: Present: normal inspection - Respiratory Respiratory exam: Present: clear to auscultation bilaterally - Cardiovascular Cardiovascular exam: Present: regular rate and rhythm - GI/Abdominal GI/Abdominal exam: Present: normal bowel sounds - Extremities Exam Extremities exam: Present: normal inspection - Neurological Exam Neurological exam: Present: alert, oriented X3 - Psychiatric Psychiatric exam: Present: normal affect, normal mood - Skin Skin exam: Present: normal color, warm, dry Result/EKG - Labs CBC & BMP: 11/02/16 03:23 11/02/16 03:23
--- NOTE | 2016-11-04 11:42 | Nephrology Progress Note ---
Nephrology - PN: Subj Interval history: Patient continues to complain of pain and weakness in his legs especially with exertion. He reports that he had stents placed in his legs for circulation problems about 4 years ago however this did not help. Review of systems pulmonary he denies shortness of breath Physical exam general patient is in no acute distress Assessment/plan 1. Acute renal failure-this is improving 2. Leg weakness-I suspect this is multifactorial in etiology related to his anemia, his valvular heart disease, and he is peripheral vascular disease. I am considering giving him a blood transfusion 3. GI bleed-this patient had heme positive stools, he has not had a severe GI bleed he had hemorrhoids visualized on his colonoscopy, he is to have a upper endoscopy tomorrow 4. Tobacco dependence Exam (PN)-Nephrology - Vital Signs Vital signs: Period Temp Pulse Resp BP Sys/[place] Pulse Ox Last 24 Hr 96.3 F-98.7 F 52-68 12-18 100-145/53-74 94-98 - Lab 11/02/16 03:23 11/02/16 03:23 Most recent lab results Calcium 6.6 MG/DL (8.5-10.1) L 11/02/16 03:23 Phosphorus 2.9 MG/DL (2.5-4.9) 11/01/16 02:48 Magnesium 2.0 MG/DL (1.8-2.4) 11/01/16 02:48 Assessment and Plan (1) Kidney disease, chronic, stage IV (GFR 15-29 ml/min) Status: Chronic Assessment and plan: This patient's creatinine is increased to 6 mg/dL from around 5 mg/dL a month or 2 ago. The patient has had some decreased appetite and feeling weak lately I wonder if he is volume depleted. I am going to give him some normal saline at 125 cc an hour for the next 12-24 hours. Current Visit: Yes (2) Hypertension Status: Acute Assessment and plan: I am going to hold his Lasix, we may also need to decrease some of his rate lowering antihypertensives due to his heart rate being 58 currently and his associated symptoms of weakness. Current Visit: Yes (3) Hyperlipidemia Status: Chronic Assessment and plan: I am going to hold his lipid-lowering agents due to his complaints of musculoskeletal pain Current Visit: Yes Qualifiers: Hyperlipidemia type: pure hypercholesterolemia Qualified Code(s): E78.00 - Pure hypercholesterolemia, unspecified; E78.0 - Pure hypercholesterolemia (4) History of congestive heart failure Status: Acute Assessment and plan: Patient has complaints of dyspnea on exertion presently, I am going to check an echocardiogram. Current Visit: Yes (5) Arthritis Status: Acute Current Visit: No
[2016-11-04] MEDS: SODIUM BICARB INJ 50 MEQ in DEXTROSE 5% 1,000 ML IV SCH (22:49)
[2016-11-05 02:54] LABS: Basophils % 0.4 % (0.0-0.8); Eosinophils # 0.5 10*3/uL (0.0-0.87); Eosinophils % 5.6 % (0.00-10.9); Hematocrit 25.2 VOL% (42.0-52.0); Hemoglobin 7.9 GM/DL (14.0-18.0); Immature Granulocytes % 2.4 %; Immature Granulocytes Absolute 0.21 #; Lymphocytes # 4.2 10*3/uL (1.4-4.0); Lymphocytes % 47.2 % (21.2-54.2); Mean Corpuscular HGB Conc 31.3 GM/DL (32-36); Mean Corpuscular Hemoglobin 28 PG (27-34); Mean Corpuscular Volume 89.7 FL (87-102); Mean Platelet Volume 13.1 FL (9.6-12.0); Monocytes # 0.7 10*3/uL (0.11-0.8); Monocytes % 8.3 % (1.7-12.7); NRBC # 0.03 10*3/uL; Neutrophils # 3.2 10*3/uL (1.4-7.4); Neutrophils % 36.1 % (38.7-73.9); Platelet Count 189 T/CUMM (130-400); Red Blood Count 2.81 MC/CUMM (3.8-5.5); Red Cell Distribution Width 14.3 % (9.3-17.3); White Blood Count 8.9 T/CUMM (4-12)
[2016-11-05 03:49] LABS: Anisocytosis 1+; Band Neutrophils 1 % (0-10); Eosinophils 4 % (0-10); Hypochromasia 1+; Lymphocytes 37 % (20-55); Myelocytes 6 %; Platelet Estimate Adequate; Segmented Neutrophils 50 % (50-85); Total Cells Counted 100
[2016-11-05] MEDS ORDERED: COLCHICINE 0.6 MG TABLET PO ONE ×2 (09:02→14:29)
--- NOTE | 2016-11-05 09:02 | Nephrology Progress Note ---
Nephrology - PN: Subj Interval history: Patient complains of left foot pain he thinks he is getting gout in it. He complains of a bump coming up on his lower leg on the left. Review of systems pulmonary denies shortness of breath Physical exam general the patient in no acute distress, he has some tenderness overlying his lower left leg to palpation, there is no erythema or increased temperature Assessment/plan 1. Acute renal failure-we will check a BMP in the morning 2. Anemia-patient's to have a upper endoscopy done today 3. Left foot pain-I will give him a dose of colchicine today and check a uric acid level tomorrow Exam (PN)-Nephrology - Vital Signs Vital signs: Period Temp Pulse Resp BP Sys/[place] Pulse Ox Last 24 Hr 98.1 F-100.6 F 64-88 18-20 122-142/57-74 96-98 - Lab 11/05/16 02:15 11/02/16 03:23 Most recent lab results Calcium 6.6 MG/DL (8.5-10.1) L 11/02/16 03:23 Phosphorus 2.9 MG/DL (2.5-4.9) 11/01/16 02:48 Magnesium 2.0 MG/DL (1.8-2.4) 11/01/16 02:48 Assessment and Plan (1) Kidney disease, chronic, stage IV (GFR 15-29 ml/min) Status: Chronic Assessment and plan: This patient's creatinine is increased to 6 mg/dL from around 5 mg/dL a month or 2 ago. The patient has had some decreased appetite and feeling weak lately I wonder if he is volume depleted. I am going to give him some normal saline at 125 cc an hour for the next 12-24 hours. Current Visit: Yes (2) Hypertension Status: Acute Assessment and plan: I am going to hold his Lasix, we may also need to decrease some of his rate lowering antihypertensives due to his heart rate being 58 currently and his associated symptoms of weakness. Current Visit: Yes (3) Hyperlipidemia Status: Chronic Assessment and plan: I am going to hold his lipid-lowering agents due to his complaints of musculoskeletal pain Current Visit: Yes Qualifiers: Hyperlipidemia type: pure hypercholesterolemia Qualified Code(s): E78.00 - Pure hypercholesterolemia, unspecified; E78.0 - Pure hypercholesterolemia (4) History of congestive heart failure Status: Acute Assessment and plan: Patient has complaints of dyspnea on exertion presently, I am going to check an echocardiogram. Current Visit: Yes (5) Arthritis Status: Inactive Current Visit: No
[2016-11-05 09:04] LABS: Albumin 3.1 G/DL (3.4-5.0); Bilirubin,Total 0.5 MG/DL (0.2-1.0); Calcium 7.5 MG/DL (8.5-10.1); Osmolality,Calculated 287.8 MOS/KG (273-304); Potassium 4.7 MMOL/L (3.5-5.1); Total Protein 6.8 G/DL (6.4-8.3)
[2016-11-05] MEDS ORDERED: LIDOCAINE 1% 5 ML VIAL ONE (13:07)
[2016-11-05] MEDS ORDERED: PROPOFOL 200 MG/20 ML VIAL IV ONE (13:07)
--- NOTE | 2016-11-05 13:18 | Operative Note ---
Date of procedure: 11/05/16 Pre-op diagnosis: Anemia with guaiac positive stools and basically negative colonoscopy Post-op diagnosis: other (This patient has mild erythema suspicious for some low -grade esophagitis, retained fluid in the stomach suspicious for gastroparesis, linear erosive gastritis thought to be the source of the patient's blood loss ( along with renal dysfunction) and some erosive duodenitis as well. Biopsies are pending to rule out Helicobacter pylori.) Procedure: PROCEDURE: Esophagogastroduodenoscopy (EGD) with cold biopsy for pathology REFERRING PHYSICIAN: Nik Briceño MD INDICATIONS: Anemia with hematocrit of 25% in a patient who has colonoscopy essentially negative and generalized abdominal pain, he has guaiac positive stools the prior H&P was reviewed and interrim changes are as noted: No change from GI consultation this admission. ENDOSCOPIST: Chintan Bailey MD ENDOSCOPE: [employer] Video 100 System upper endoscope ASA CLASS: 3 EXAM: CV: regular rate and rhythm respiratory: Clear without wheezes abdominal: active bowel sounds MEDICATION: Per nursing anesthesia protocol, see their notes PROCEDURE: After discussion of the potential risks and benefits of upper endoscopy, the informed consent was obtained. The patient was then placed in the left lateral decubitus position where sedation was achieved as noted above. Esophageal intubation was performed without difficulty, and the endoscope was advanced through the esophagus, stomach and duodenum. A slow withdrawal was then performed with retroflexion in the stomach for careful inspection of the incisura angularis, fundus and cardia. The scope was then returned to a neutral position and withdrawn through the esophagus. The patient tolerated the procedure well and without complication. BIOPSIES: Gastric antrum/body and duodenum. PHOTOGRAPHS: Obtained FINDINGS: Hypopharynx and Larynx: Normal Esohagoscopy Upper and middle thirds: Normal Lower third mild erythema in the distal 2 cm Esophogastric junctions: Mild erythema in the distal 2 cm but no gross evidence of King's esophagus or esophagitis and no stricturing. Gastroscopy: Cardia/Fundus: Moderate amount of green fluid retained in the stomach in this region Body: Linear erosive gastritis of a moderate nature, biopsied Antrum and pylorus linear erosive gastritis of a moderate nature, biopsied Duodenoscopy: Bulb moderate erosive duodenitis noted here, biopsied for sprue Second and third portions: Prominent major papilla also biopsied in this region for sprue but no gross evidence of duodenitis. IMPRESSION: This patient has mild erythema suspicious for some low-grade esophagitis, retained fluid in the stomach suspicious for gastroparesis, linear erosive gastritis thought to be the source of the patient's blood loss (along with renal dysfunction) and some erosive duodenitis as well. Biopsies are pending to rule out Helicobacter pylori. RECOMMENDATIONS: Follow up for biopsy results in 1-2 weeks by phone [phone] Continue anti-gastroesophageal reflux measures (avoid carbonated and acidic beverages, avoid eating within 2 hours of bedtime, avoid tight fitting clothing , and elevate the front bed posts 6 inches prior to sleeping. Protonix 40 mg p.o. twice daily. Chintan Bailey MD COPY TO: Anesthesia: MAC Surgeon / Physician: Chintan Bailey Estimated blood loss: minimal Specimens: other (Gastric antrum/body and duodenum) Condition: stable Disposition: post procedure unit ([facility]I. Suite) Results - Labs CBC & BMP: 11/05/16 02:15 11/05/16 08:17 Discharge Plan - Discharge Medications No Action traMADol/ACETAMINOPH 37.5-325 [Ultracet] 1 tablet PO Q6H PRN PRN Reason: Pain Ranolazine [Ranexa] 500 mg PO BID Isosorbide Mononitrate [Imdur] 30 mg PO DAILY Sodium Bicarb Tab 650 mg PO BID Aspirin [Ecotrin] 81 mg PO DAILY Gabapentin [Gabapentin] 300 mg PO BID Nebivolol [Bystolic] 10 mg PO DAILY Furosemide [Furosemide] 40 mg PO DAILY Atorvastatin Calcium 40 mg PO DAILY Amlodipine Besylate 10 mg PO DAILY Amlodipine Besylate 5 mg PO DAILY - Follow Up or Referral - Forms/Instructions
--- NOTE | 2016-11-05 13:22 | Gastrointestinal Progress Note ---
Assessment and Plan (1) Generalized abdominal pain Status: Chronic Assessment and plan: I suspect this may be due to chronic constipation as the patient has pain both in his right lower quadrant and epigastric region although the latter may certainly be related to his anemia and aspirin intake on a daily basis. He seems to feel better when he is empty of stool and typically has only one bowel movement per week. We will be doing a bowel prep today as I will make him n.p.o. after this breakfast meal and hopefully be able to get him clean enough to perform colonoscopy tomorrow. If the colonoscopy fails to show bleeding source we may likely follow this with a upper endoscopy the following day. Risks and benefits of the procedure include but are not limited to: Bleeding, infection, perforation, cardiac and pulmonary compromise. He is at higher risk because of his renal dysfunction. 11/04/16--this patient has essentially a normal-looking colonoscopy without evidence of polyps, colitis, AVMs or other bleeding source. There is no evidence of cancer, there are moderate size internal hemorrhoids noted on retroflex thought to be a source of the guaiac positive stool. Given his abdominal pain and anemia I think it is reasonable to perform upper endoscopy with potential biopsies for sprue tomorrow morning. We will continue leave this patient on Protonix but advance his diet to renal diet making him n.p.o. after midnight for the above upper endoscopy tomorrow. If this appears to be normal I think you could likely be discharged from the hospital from a GI standpoint. No biopsies were taken during the colonoscopy. 11/05/16--the findings of upper endoscopy are as follows: This patient has mild erythema suspicious for some low-grade esophagitis, retained fluid in the stomach suspicious for gastroparesis, linear erosive gastritis thought to be the source of the patient's blood loss (along with renal dysfunction) and some erosive duodenitis as well. Biopsies are pending to rule out Helicobacter pylori. A prescription for Protonix has been written and left in the front of the chart patient is able to leave from my standpoint. He will not need a repeat colonoscopy for 10 years. Should have his hematocrit rechecked in about 1-2 months. Current Visit: Yes (2) Chronic constipation Status: Chronic Assessment and plan: Patient goes to the bathroom once weekly. He would be a good candidate for Linzess 290 mg daily 30 minutes prior to supper or MiraLAX twice daily repeat 3 times daily or twice daily either one. We will likely start with MiraLAX when he has an outpatient status. Would like to keep him from having excessive magnesium intake due to his kidney dysfunction. 11/04/16--colonoscopy demonstrated no evidence of structural changes or kinking seen throughout the colon. This patient will likely do well with MiraLAX versus Linzess as an outpatient to control his underlying constipation. We will start with MiraLAX. 11/05/16--The patient is doing well on his 1 capful twice daily. He is likely not to have another bowel movement for several days. Current Visit: Yes (3) Guaiac positive stools Status: Acute Assessment and plan: It is unclear whether this is due to a bleeding lesion either in his colon or upper GI tract. The patient does take aspirin on a routine basis and we will hold this now. Anticipate colonoscopy tomorrow, hopefully we can rule out colorectal cancer and AVMs as a potential source for the blood loss. Again, I expect the pain is likely secondary to constipation. 11/04/16--the source for the guaiac positive stools is unclear however the patient does have moderate size internal hemorrhoids noted on retroflex thought to be a potential source. Upper endoscopy is recommended at this point to look for other sources of the patient's hematocrit dropped to 25% aside from his renal dysfunction. 11/05/16--the patient is doing well status post colonoscopy and upper endoscopy did demonstrate a moderate erosive gastritis in a linear fashion likely due to NSAIDs or other caustic medication. Biopsies are pending for Helicobacter pylori. He can certainly be discharged from GI standpoint with the Protonix written in the front of the chart. Current Visit: Yes (4) Anemia Status: Chronic Assessment and plan: The patient certainly has anemia secondary to his renal dysfunction but with guaiac positive stools this is likely multifactorial. We will look for in the colon initially and possibly follow this with upper endoscopy if nothing is found. 11/04/16--We will proceed with upper endoscopy tomorrow as had been mentioned above. Colonoscopy is negative for bleeding source. 11/05/16--see above. Current Visit: Yes Qualifiers: Other causes of anemia: chronic disease, kidney Gastroenterology - PN: Subj Interval history: No further problems over the evening time. Patient is hungry. Exam (Progress Note) - Constitutional Vitals: Period Temp Pulse Resp BP Sys/[place] Pulse Ox Last 24 Hr 98.1 F-100.6 F 61-88 16-20 122-169/57-84 96-98 General appearance: mild distress - Head Head exam: Present: normocephalic - Eye Eye exam: Present: EOMI - Respiratory Respiratory exam: Present: clear to auscultation bilaterally - Cardiovascular Cardiovascular exam: Present: regular rate and rhythm - GI/Abdominal GI/Abdominal exam: Present: normal bowel sounds, soft. Absent: ascites, distended, tenderness, rebound - Extremities Exam Extremities exam: Present: normal inspection - Psychiatric Psychiatric exam: Present: normal affect, normal mood - Skin Skin exam: Present: normal color Results - Labs CBC & BMP: 11/05/16 02:15 11/05/16 08:17
--- NOTE | 2016-11-05 13:39 | Anesthesia ---
Anesthesia Post OP - Post Ansesthetic Evaluation Patient seen in post op: Yes Resp: within normal limits CV: within normal limits Mental: within normal limits Temp: within normal limits Upre-Lr-Dmobqrzoi: within normal limits Nausea and Vomiting: within normal limits Pain: within normal limits
[2016-11-05] MEDS: NEBIVOLOL 5 MG TABLET PO SCH (14:10)
[2016-11-05] MEDS: GABAPENTIN 300 MG CAPSULE PO SCH ×2 (14:11→21:20)
[2016-11-05] MEDS: PANTOPRAZOLE 40 MG TABLET PO SCH (14:12)
[2016-11-05] MEDS: amLODIPine 5 MG TABLET PO SCH (14:13)
[2016-11-05] MEDS: ISOSORBIDE MONONITRATE 30 MG TABLET PO SCH (14:13)
[2016-11-05] MEDS: RANOLAZINE 500 MG TABLET PO SCH ×2 (14:15→21:20)
[2016-11-05] MEDS: SODIUM BICARBONATE 650 MG TABLET PO SCH ×2 (14:15→21:20)
[2016-11-05] MEDS: SODIUM BICARB INJ 50 MEQ in DEXTROSE 5% 1,000 ML IV SCH ×2 (14:15)
[2016-11-06] MEDS: SODIUM BICARB INJ 50 MEQ in DEXTROSE 5% 1,000 ML IV SCH ×2 (02:33→04:35)
[2016-11-06 05:27] LABS: Basophils % 0.3 % (0.0-0.8); Eosinophils # 0.5 10*3/uL (0.0-0.87); Eosinophils % 5.3 % (0.00-10.9); Hematocrit 25.3 VOL% (42.0-52.0); Hemoglobin 7.8 GM/DL (14.0-18.0); Immature Granulocytes % 2.9 %; Immature Granulocytes Absolute 0.26 #; Lymphocytes # 4.1 10*3/uL (1.4-4.0); Mean Corpuscular HGB Conc 30.8 GM/DL (32-36); Mean Corpuscular Hemoglobin 28 PG (27-34); Mean Corpuscular Volume 90.7 FL (87-102); Mean Platelet Volume 12.5 FL (9.6-12.0); Monocytes # 0.8 10*3/uL (0.11-0.8); Monocytes % 8.6 % (1.7-12.7); Neutrophils # 3.5 10*3/uL (1.4-7.4); Neutrophils % 37.9 % (38.7-73.9); Platelet Count 204 T/CUMM (130-400); Red Blood Count 2.79 MC/CUMM (3.8-5.5); Red Cell Distribution Width 14.2 % (9.3-17.3); White Blood Count 9.1 T/CUMM (4-12)
[2016-11-06 06:02] LABS: Albumin 2.6 G/DL (3.4-5.0); Calcium 7.3 MG/DL (8.5-10.1); Osmolality,Calculated 293.4 MOS/KG (273-304); Phosphorous 2.5 MG/DL (2.5-4.9); Potassium 5.1 MMOL/L (3.5-5.1)
[2016-11-06 06:05] LABS: Eosinophils 3 % (0-10); Hypochromasia 1+; Lymphocytes 47 % (20-55); Segmented Neutrophils 42 % (50-85); Total Cells Counted 100
[2016-11-06 06:06] LABS: Microcytosis 1+; Platelet Estimate Adequate
[2016-11-06] MEDS: NEBIVOLOL 5 MG TABLET PO SCH (09:45)
[2016-11-06] MEDS: RANOLAZINE 500 MG TABLET PO SCH (09:46)
[2016-11-06] MEDS: SODIUM BICARBONATE 650 MG TABLET PO SCH (09:46)
[2016-11-06] MEDS: GABAPENTIN 300 MG CAPSULE PO SCH (09:46)
[2016-11-06] MEDS: amLODIPine 5 MG TABLET PO SCH (09:47)
[2016-11-06] MEDS: PANTOPRAZOLE 40 MG TABLET PO SCH (09:47)
[2016-11-06] MEDS: ISOSORBIDE MONONITRATE 30 MG TABLET PO SCH (09:48)
--- NOTE | 2016-11-06 10:55 | Pathology Report from [facility] ---
ACCESSION # : [id number] PATIENT NAME : Yvan Gimenez ORDERING DR : Chintan Bailey MD CLINICAL HX: Anemia POST-OP DX: Same SPECIMEN INFO: #1 Duodenum biopsy #2 SILVANO GROSS DESCRIPTION: The specimen is received in formalin labeled with the patient 's name Yvan Gimenez in 2 parts.The first labeled #1 is a 0.8 x 0.4 cm aggregate of ramirez tissue. Submitted in cassette #1.#2 Consists of a 0.6 x 0.4 cm aggregate of ramirez tissue. Submitted in cassette #2. DIAGNOSIS FOR YVAN GIMENEZ: #1 DUODENUM BIOPSY: Chronic non-specific duodenitis with normal villous architecture. No evidence of granulomas, parasites, tumor, or celiac disease.#2 SILVANO BIOPSIES: Chronic gastritis. H. pylori not seen on special stain. SERVICE DATE: 11/05/2016 REPORT DATE: 11/06/2016 PATHOLOGIST: Kajal Rodriguez
--- NOTE | 2016-11-06 13:11 | Discharge Summary ---
Hospital Course - Hospital Course Hospital Course: Mr. Gimenez is a 71-year-old -[place] gentleman who is admitted with acute renal failure when he was found to have a creatinine of around 6 mg/dL in the office, the patient had complaints of leg abdominal and chest pain for the past week or so he also states he had not been eating or drinking very well. We admitted him and started IV fluid hydration with this the patient's creatinine improved to around 2.7 mg/dL. The patient also had a workup for heme positive stools he had a upper and lower endoscopy. His lower endoscopy showed some hemorrhoidal disease, his upper endoscopy showed esophagitis gastritis and duodenitis that was thought to be the cause of his heme positive stools the patient also had some retained food in his GI tract and was subsequently felt to have gastroparesis as well. The patient has been prescribed MiraLAX to take on a regular basis he is also to start taking Protonix 40 mg twice a day. The patient was also evaluated by cardiology for his chest pain, the chest pain and resolved his cardiac isoenzymes were unremarkable he did have an echocardiogram that showed diastolic dysfunction as well as 1+ mitral and tricuspid regurgitation. At this time the patient is feeling better and is ready for discharge. The patient had a hematocrit around 25% and it remained stable here. Some consideration was given to transfusing him due to some leg pains that he complained. The patient has a history of peripheral vascular disease and had stents done in his legs previously. It was decided to hold on his transfusion and monitor his leg discomfort. Diagnosis - Discharge Diagnosis (1) Kidney disease, chronic, stage IV (GFR 15-29 ml/min) Status: Chronic (2) Hypertension Status: Acute (3) Hyperlipidemia Status: Chronic (4) History of congestive heart failure Status: Acute (5) Arthritis Status: Inactive Discharge Plan - Discharge Data Disposition: Disch To Home/Self Care Condition at Discharge: Stable Discharge Diet: advance to your usual diet Activity: resume usual activities as tolerated - Discharge Medications New HYDROcodone/ACETAMIN 5-325 [[place] 5-325] 1 tablet PO Q4H PRN #0 tablet PRN Reason: Pain Mild (1-3) Isosorbide Mononitrate [Imdur] 30 mg PO DAILY tablet Pantoprazole Tab [Protonix Tab] 40 mg PO BID #60 tablet Ranolazine [Ranexa] 500 mg PO BID tablet Sodium Bicarb Tab 650 mg PO BID tablet amLODIPine [Norvasc] 5 mg PO DAILY #30 tablet Gabapentin Cap/Tab [Neurontin Cap/Tab] 300 mg PO BID capsule Nebivolol [Bystolic] 5 mg PO DAILY #30 tablet Polyethylene Glycol Powder [Miralax] 17 gm PO DAILY #30 pack Discontinued Ranolazine [Ranexa] 500 mg PO BID Isosorbide Mononitrate [Imdur] 30 mg PO DAILY Sodium Bicarb Tab 650 mg PO BID Gabapentin [Gabapentin] 300 mg PO BID Nebivolol [Bystolic] 10 mg PO DAILY Furosemide [Furosemide] 40 mg PO DAILY Atorvastatin Calcium 40 mg PO DAILY Amlodipine Besylate 10 mg PO DAILY Amlodipine Besylate 5 mg PO DAILY No Action traMADol/ACETAMINOPH 37.5-325 [Ultracet] 1 tablet PO Q6H PRN PRN Reason: Pain Aspirin [Ecotrin] 81 mg PO DAILY - Follow Up or Referral Follow Up: Nik Briceño MD [Physician] - 2 Weeks (with a renal panel and a cbc) - Forms/Instructions Exam - Constitutional Vitals: Period Temp Pulse Resp BP Sys/[place] Pulse Ox Last 24 Hr 97.7 F-99.9 F 55-71 16-18 84-148/56-74 94-100 Discharge Results Procedures and tests throughout hospitalization: Pending Orders 11/02/16 10:38 Occult Blood, Stool Routine Labs on day of discharge: Labs from last 24 hours 11/06/16 11/06/16 05:00 05:00 WBC 9.1 RBC 2.79 L Hgb 7.8 L Hct 25.3 L MCV 90.7 MCH 28 MCHC 30.8 L RDW 14.2 Plt Count 204 MPV 12.5 H Neut % (Auto) 37.9 L Lymph % (Auto) 45.0 [place] % (Auto) 8.6 Eos % (Auto) 5.3 Baso % (Auto) 0.3 Neut # (Auto) 3.5 Lymph # (Auto) 4.1 H [place] # (Auto) 0.8 Eos # (Auto) 0.5 Baso # (Auto) 0.0 Total Counted 100 Immature Gran % 2.9 Nucleated RBC % 0.0 Immature Gran # 0.26 Segmented Neutrophils 42 L Lymphocytes 47 Monocytes 6 Eosinophils 3 Basophils 2.0 H Nucleated RBCs # 0.00 Platelet Estimate Adequate Hypochromasia 1+ Microcytosis 1+ Sodium 147 H Potassium 5.1 Chloride 112 H Carbon Dioxide 24 Anion Gap 16.1 H BUN 20 H Creatinine 2.80 H GFR Calculation 26 BUN/Creatinine Ratio 7.00 Glucose 82 Calculated Osmolality 293.4 Uric Acid 7.0 Calcium 7.3 L Phosphorus 2.5 Albumin 2.6 L DS: Provider Date of admission: 10/31/16 12:17 Primary care physician: Randy Elise Attending physician on admission: Nik Briceño MD Consults: 10/31/16 12:23 Consult to Pharmacy [CONS] Routine Reason for Pharmacy Consult: Adjust Meds Renal Funct 10/31/16 15:41 Consult to Pastoral Services [CONS] Routine Comment: Pastoral Screen: Request Weatherization Technician Visit Pastoral Screen Source of Request: Patient 11/02/16 10:37 Consult to Physician [CONS] Routine Comment: GI medicine eval abd pain, anemia may see Thursday Consulting Provider: Chintan Bailey Consulting Provider Notified: Yes When should Consulting Provider be notified: Now Person Notified: vishal called Date Notified: 11/03/16 Time Notified: 08:29 11/02/16 10:38 Consult to Physician [CONS] Routine Comment: cardiology Thursday morning eval chest pain, michael Consulting Provider: Cardiology - [facility] Consulting Provider Notified: Yes When should Consulting Provider be notified: Now Person Notified: jose called Date Notified: 11/03/16 Time Notified: 08:05 11/04/16 08:21 Consult to Anesthesiology [CONS] Routine Consulting Provider: Reason for Anesthesiology: Pre-op Clearance Discharging clinician: Nik Briceño MD
[2016-11-06 16:58] VITALS: BP 133/75
== END 2016-11-06 16:50 | disposition home or self-care (01) | DRG 682 ==
LOC: N.3E 11:51
PROVIDERS: ADMIT Internal Medicine Nephrology; ATTEND Internal Medicine Nephrology

== ENCOUNTER 2017-10-20 17:45 | Inpatient (IN) ==
[2017-10-20] MEDS ORDERED: ONDANSETRON 4 MG/2 ML VIAL IV STA (19:06)
[2017-10-20] MEDS ORDERED: SODIUM CHLORIDE 0.9% 500 ML IV STA (19:06)
[2017-10-20] MEDS ORDERED: MORPHINE 2 MG/1 ML SYRINGE IV STA (19:06)
[2017-10-20] MEDS ORDERED: ALUM/MAG/SIMETH/LIDO VISC 1:1 30 ML BOTTLE PO STA (19:06)
[2017-10-20] MEDS ORDERED: ASPIRIN 325 MG TABLET PO STA (19:06)
[2017-10-20] MEDS ORDERED: METHOCARBAMOL 500 MG TABLET PO STA (19:11)
[2017-10-20 19:26] LABS: Basophils # 0.1 10*3/uL (0.0-0.2); Basophils % 1.3 % (0.0-0.8); Eosinophils # 0.1 10*3/uL (0.0-0.87); Eosinophils % 1.7 % (0.00-10.9); Hematocrit 40.1 VOL% (42.0-52.0); Hemoglobin 12.7 GM/DL (14.0-18.0); Immature Granulocytes % 1.2 %; Immature Granulocytes Absolute 0.09 #; Lymphocytes # 2.3 10*3/uL (1.4-4.0); Lymphocytes % 30.3 % (21.2-54.2); Mean Corpuscular HGB Conc 31.7 GM/DL (32-36); Mean Corpuscular Hemoglobin 28 PG (27-34); Mean Corpuscular Volume 87.9 FL (87-102); Mean Platelet Volume 12.2 FL (9.6-12.0); Monocytes # 0.6 10*3/uL (0.11-0.8); Monocytes % 7.7 % (1.7-12.7); NRBC # 0.05 10*3/uL; Neutrophils # 4.4 10*3/uL (1.4-7.4); Neutrophils % 57.8 % (38.7-73.9); Platelet Count 225 T/CUMM (130-400); Red Blood Count 4.56 MC/CUMM (3.8-5.5); Red Cell Distribution Width 14.2 % (9.3-17.3); White Blood Count 7.7 T/CUMM (4-12)
[2017-10-20] MEDS ORDERED: ASPIRIN 325 MG TABLET ONE (19:26)
[2017-10-20] MEDS ORDERED: METHOCARBAMOL 500 MG TABLET ONE (19:26)
[2017-10-20] MEDS ORDERED: ALUM/MAG/SIMETH/LIDO VISC 1:1 30 ML BOTTLE PO ONE (19:26)
[2017-10-20] MEDS ORDERED: ONDANSETRON 4 MG/2 ML VIAL ONE (19:26)
[2017-10-20] MEDS ORDERED: MORPHINE 2 MG/1 ML SYRINGE ONE (19:26)
[2017-10-20 19:41] LABS: PT Patient Result 10.8 SECS
[2017-10-20 19:59] LABS: Albumin 3.3 G/DL (3.4-5.0); Bilirubin,Total 0.8 MG/DL (0.2-1.0); Calcium 8.5 MG/DL (8.5-10.1); Osmolality,Calculated 287.5 MOS/KG (273-304); Potassium 4.7 MMOL/L (3.5-5.1); Total Protein 7.6 G/DL (6.4-8.3)
[2017-10-20 22:13] LABS: Apearance,Urine CLEAR (Clear); Bilirubin,Urine Negative (Negative); Blood, Urine Small mg/dL (Negative); Glucose,Urine (UA) Negative (Negative); Hyaline Casts,Urine 3 /LPF (0-3); Ketones,Urine Negative (Negative); Nitrite,Urine Negative (Negative); Protein,Urine 100 MG/DL; RBC,Urine <1 /HPF (0-4); Squamous Epithelial Cell,Urine Occasional /HPF (0-10); Urine Color Yellow (Yellow); Urine Specific Gravity 1.009 (1.001-1.035); Urine Urobilinogen < 2.0 EU/DL (0.2-1.0); WBC,Urine 1 /HPF (0-6)
[2017-10-20] MEDS ORDERED: ONDANSETRON 4 MG/2 ML VIAL IV PRN (23:40)
[2017-10-20] MEDS ORDERED: methylPREDNISolone SOD SUC 125 MG/2 ML VIAL IV ONE (23:40)
[2017-10-20] MEDS ORDERED: ALBUTEROL/IPRATROPIUM 3 ML NEB RESP TX PRN (23:40)
[2017-10-20] MEDS ORDERED: MORPHINE 2 MG/1 ML SYRINGE IV PRN (23:40)
[2017-10-20] MEDS ORDERED: ENOXAPARIN 80 MG/0.8 ML SYRINGE SUBCUT SCH (23:40)
[2017-10-21] MEDS: SODIUM CHLORIDE 0.9% 1,000 ML IV SCH ×3 (01:06→21:01)
[2017-10-21] MEDS: cefTRIAXone 1,000 MG in SYRINGE 1 EACH IV SCH ×2 (01:07→21:00)
[2017-10-21] MEDS: ALBUTEROL/IPRATROPIUM 3 ML NEB RESP TX SCH ×4 (01:20→20:26)
[2017-10-21] MEDS: AZITHROMYCIN INJ 500 MG in SODIUM CHLORIDE 0.9% 250 ML IV SCH ×2 (01:33→21:00)
[2017-10-21 02:23] LABS: Calcium 8.5 MG/DL (8.5-10.1); Osmolality,Calculated 291.2 MOS/KG (273-304); Potassium 4.3 MMOL/L (3.5-5.1)
[2017-10-21] MEDS: amLODIPine 5 MG TABLET PO SCH (08:51)
[2017-10-21] MEDS: DOCUSATE SODIUM 100 MG CAPSULE PO SCH ×2 (08:51→21:01)
[2017-10-21] MEDS: PANTOPRAZOLE 40 MG TABLET PO SCH (08:51)
[2017-10-21] MEDS: THEOPHYLLINE ER 300 MG TABLET PO SCH ×2 (08:51→17:07)
[2017-10-21] MEDS: ISOSORBIDE MONONITRATE 30 MG TABLET PO SCH (08:52)
[2017-10-21] MEDS: NEBIVOLOL 5 MG TABLET PO SCH (08:52)
[2017-10-21] MEDS ORDERED: methylPREDNISolone SOD SUC 40 MG/1 ML VIAL IV SCH (09:00)
[2017-10-22] MEDS: ALBUTEROL/IPRATROPIUM 3 ML NEB RESP TX SCH ×2 (00:30→09:00)
[2017-10-22 07:05] LABS: Calcium 8.1 MG/DL (8.5-10.1); Osmolality,Calculated 298.7 MOS/KG (273-304); Potassium 4.1 MMOL/L (3.5-5.1)
[2017-10-22 08:03] LABS: Hepatitis A Ab IgM Quant 0.11 Index; Hepatitis A Ab IgM Result Negative (Negative); Hepatitis B Core IgM Quant 0.17 Index; Hepatitis B Core IgM Result Negative (Negative); Hepatitis B Surface Ag Quant < 0.10 Index; Hepatitis B Surface Ag Result Negative (Negative); Hepatitis C Virus Ab Quant 0.08 Index; Hepatitis C Virus Ab Result Negative (Negative)
[2017-10-22] MEDS: PANTOPRAZOLE 40 MG TABLET PO SCH (08:51)
[2017-10-22] MEDS: ISOSORBIDE MONONITRATE 30 MG TABLET PO SCH (08:51)
[2017-10-22] MEDS: THEOPHYLLINE ER 300 MG TABLET PO SCH ×2 (08:52→16:26)
[2017-10-22] MEDS: DOCUSATE SODIUM 100 MG CAPSULE PO SCH ×2 (08:52→20:33)
[2017-10-22] MEDS: NEBIVOLOL 5 MG TABLET PO SCH (08:52)
[2017-10-22] MEDS: amLODIPine 5 MG TABLET PO SCH (08:52)
[2017-10-22] MEDS ORDERED: NITROGLYCERIN SL 0.4 MG TABLET SL PRN (12:45)
[2017-10-22] MEDS ORDERED: ALBUTEROL 1.25 MG/3 ML NEB RESP TX SCH (13:00)
[2017-10-22] MEDS: SODIUM CHLORIDE 0.9% 1,000 ML IV SCH ×2 (14:07)
[2017-10-22] MEDS: POLYETHYLENE GLYCOL POWDER 17 GM PACK PO SCH (14:07)
[2017-10-22] MEDS: MONTELUKAST 10 MG TABLET PO SCH (14:07)
[2017-10-23] MEDS: SODIUM CHLORIDE 0.9% 1,000 ML IV SCH ×4 (00:06→17:55)
[2017-10-23 07:42] LABS: Calcium 7.6 MG/DL (8.5-10.1); Osmolality,Calculated 296.3 MOS/KG (273-304); Potassium 4.2 MMOL/L (3.5-5.1)
[2017-10-23] MEDS: THEOPHYLLINE ER 300 MG TABLET PO SCH ×2 (08:46→17:55)
[2017-10-23] MEDS: NEBIVOLOL 5 MG TABLET PO SCH (08:49)
[2017-10-23] MEDS: ISOSORBIDE MONONITRATE 30 MG TABLET PO SCH (08:49)
[2017-10-23] MEDS: amLODIPine 5 MG TABLET PO SCH (08:53)
[2017-10-23] MEDS: PANTOPRAZOLE 40 MG TABLET PO SCH (08:53)
[2017-10-23] MEDS: MONTELUKAST 10 MG TABLET PO SCH (08:53)
[2017-10-23] MEDS: POLYETHYLENE GLYCOL POWDER 17 GM PACK PO SCH (08:53)
[2017-10-23] MEDS: DOCUSATE SODIUM 100 MG CAPSULE PO SCH ×2 (08:53→21:55)
[2017-10-23 11:02] LABS: Basophils # 0.1 10*3/uL (0.0-0.2); Basophils % 0.4 % (0.0-0.8); Eosinophils % 0.2 % (0.00-10.9); Hematocrit 33.3 VOL% (42.0-52.0); Hemoglobin 10.8 GM/DL (14.0-18.0); Immature Granulocytes % 1.5 %; Lymphocytes # 2.1 10*3/uL (1.4-4.0); Mean Corpuscular HGB Conc 32.4 GM/DL (32-36); Mean Corpuscular Hemoglobin 29 PG (27-34); Mean Corpuscular Volume 88.6 FL (87-102); Mean Platelet Volume 11.7 FL (9.6-12.0); Monocytes # 0.9 10*3/uL (0.11-0.8); Monocytes % 6.9 % (1.7-12.7); NRBC # 0.15 10*3/uL; Neutrophils # 9.9 10*3/uL (1.4-7.4); Platelet Count 225 T/CUMM (130-400); Red Blood Count 3.76 MC/CUMM (3.8-5.5); Red Cell Distribution Width 14.9 % (9.3-17.3); White Blood Count 13.2 T/CUMM (4-12)
[2017-10-23] MEDS ORDERED: SODIUM CHLORIDE 0.9% 1,000 ML IV SCH (17:30)
[2017-10-24 06:44] LABS: Osmolality,Calculated 285.5 MOS/KG (273-304); Potassium 4.4 MMOL/L (3.5-5.1)
[2017-10-24] MEDS: THEOPHYLLINE ER 300 MG TABLET PO SCH (08:24)
[2017-10-24] MEDS: amLODIPine 5 MG TABLET PO SCH (08:25)
[2017-10-24] MEDS: PANTOPRAZOLE 40 MG TABLET PO SCH (08:25)
[2017-10-24] MEDS: NEBIVOLOL 5 MG TABLET PO SCH (08:25)
[2017-10-24] MEDS: DOCUSATE SODIUM 100 MG CAPSULE PO SCH (08:25)
[2017-10-24] MEDS: MONTELUKAST 10 MG TABLET PO SCH (08:25)
[2017-10-24] MEDS: POLYETHYLENE GLYCOL POWDER 17 GM PACK PO SCH (08:26)
[2017-10-24] MEDS: ISOSORBIDE MONONITRATE 30 MG TABLET PO SCH (08:39)
[2017-10-24 16:22] VITALS: BP 158/80
== END 2017-10-24 14:00 | disposition home health service (06) | DRG 683 ==
LOC: N.ED 17:45 → N.EDINP 21:30 → N.2E 22:51
PROVIDERS: ADMIT Internal Medicine Cardiovascular Disease; ATTEND Internal Medicine Cardiovascular Disease

== ENCOUNTER 2018-01-10 17:28 | Inpatient (IN) ==
[2018-01-10] MEDS ORDERED: ACETAMINOPHEN 500 MG TABLET PO STA (18:55)
[2018-01-10 19:07] LABS: Basophils % 0.1 % (0.0-0.8); Eosinophils # 0.2 10*3/uL (0.0-0.87); Eosinophils % 1.2 % (0.00-10.9); Hematocrit 26.4 VOL% (42.0-52.0); Hemoglobin 8.7 GM/DL (14.0-18.0); Immature Granulocytes % 2.5 %; Immature Granulocytes Absolute 0.41 #; Lymphocytes # 3.1 10*3/uL (1.4-4.0); Lymphocytes % 18.9 % (21.2-54.2); Mean Corpuscular Hemoglobin 28 PG (27-34); Mean Corpuscular Volume 85.7 FL (87-102); Mean Platelet Volume 12.6 FL (9.6-12.0); Monocytes # 1.7 10*3/uL (0.11-0.8); Monocytes % 10.4 % (1.7-12.7); Neutrophils # 11.1 10*3/uL (1.4-7.4); Neutrophils % 66.9 % (38.7-73.9); Platelet Count 194 T/CUMM (130-400); Red Blood Count 3.08 MC/CUMM (3.8-5.5); Red Cell Distribution Width 14.9 % (9.3-17.3); White Blood Count 16.6 T/CUMM (4-12)
[2018-01-10 19:31] LABS: Albumin 2.6 G/DL (3.4-5.0); Bilirubin,Total 0.7 MG/DL (0.2-1.0); Calcium 7.4 MG/DL (8.5-10.1); Osmolality,Calculated 296.7 MOS/KG (273-304); Potassium 4.6 MMOL/L (3.5-5.1); Total Protein 5.8 G/DL (6.4-8.3)
[2018-01-10 19:35] LABS: Apearance,Urine CLEAR (Clear); Bilirubin,Urine Negative (Negative); Blood, Urine Negative (Negative); Glucose,Urine (UA) Negative (Negative); Ketones,Urine Negative (Negative); Nitrite,Urine Negative (Negative); Protein,Urine 30 MG/DL; RBC,Urine <1 /HPF (0-4); Squamous Epithelial Cell,Urine Occasional /HPF (0-10); Urine Color Yellow (Yellow); Urine Specific Gravity 1.008 (1.001-1.035); Urine Urobilinogen < 2.0 EU/DL (0.2-1.0); WBC,Urine <1 /HPF (0-6)
[2018-01-10 19:44] LABS: Lactic Acid 1.1 MMOL/L (0.4-2.0)
[2018-01-10] MEDS ORDERED: SODIUM CHLORIDE 0.9% 1,000 ML IV STA (19:53)
[2018-01-10] MEDS ORDERED: CEFEPIME 2,000 MG in SODIUM CHLORIDE 0.9% 100 ML IV STA (19:59)
[2018-01-10] MEDS ORDERED: MORPHINE 4 MG/1 ML VIAL IV STA (21:05)
[2018-01-10] MEDS ORDERED: ONDANSETRON 4 MG/2 ML VIAL IV STA (21:06)
[2018-01-10] MEDS ORDERED: NITROGLYCERIN SL 0.4 MG TABLET SL PRN (22:58)
[2018-01-11] MEDS: cefTRIAXone 1,000 MG in SYRINGE 1 EACH IV SCH ×2 (00:18→23:10)
[2018-01-11] MEDS: CARVEDILOL 25 MG TABLET PO SCH ×3 (00:18→23:12)
[2018-01-11] MEDS: PANTOPRAZOLE 40 MG TABLET PO SCH ×3 (00:18→23:12)
[2018-01-11] MEDS: DOXAZOSIN 4 MG TABLET PO SCH ×2 (00:18→23:12)
[2018-01-11] MEDS: ATORVASTATIN 20 MG TABLET PO SCH ×2 (00:18→23:12)
[2018-01-11] MEDS: DOXYCYCLINE HYCLATE INJ 100 MG in SODIUM CHLORIDE 0.9% 100 ML IV SCH ×3 (00:21→23:15)
[2018-01-11] MEDS: ASPIRIN EC 81 MG TABLET PO SCH (10:10)
[2018-01-11] MEDS: ISOSORBIDE MONONITRATE 30 MG TABLET PO SCH (10:10)
[2018-01-11] MEDS: amLODIPine 10 MG TABLET PO SCH (10:10)
[2018-01-11] MEDS: POLYETHYLENE GLYCOL POWDER 17 GM PACK PO SCH (10:10)
[2018-01-11] MEDS: CALCIUM (CARBONATE)/VITAMIN D 600 MG-400 UNIT TABLET PO SCH (10:11)
[2018-01-11] MEDS: TORSEMIDE 20 MG TABLET PO SCH (10:37)
[2018-01-12] MEDS: ACETAMINOPHEN 325 MG TABLET PO PRN (04:55)
[2018-01-12 08:51] LABS: Basophils % 0.2 % (0.0-0.8); Eosinophils # 0.2 10*3/uL (0.0-0.87); Eosinophils % 1.3 % (0.00-10.9); Hematocrit 25.5 VOL% (42.0-52.0); Immature Granulocytes % 1.5 %; Lymphocytes # 2.5 10*3/uL (1.4-4.0); Mean Corpuscular HGB Conc 31.4 GM/DL (32-36); Mean Corpuscular Hemoglobin 28 PG (27-34); Mean Corpuscular Volume 88.2 FL (87-102); Monocytes # 1.4 10*3/uL (0.11-0.8); Monocytes % 10.1 % (1.7-12.7); Neutrophils % 67.9 % (38.7-73.9); Platelet Count 161 T/CUMM (130-400); Red Blood Count 2.89 MC/CUMM (3.8-5.5); Red Cell Distribution Width 15.2 % (9.3-17.3); White Blood Count 13.3 T/CUMM (4-12)
[2018-01-12 09:16] LABS: Calcium 7.4 MG/DL (8.5-10.1); Osmolality,Calculated 290.8 MOS/KG (273-304); Potassium 4.3 MMOL/L (3.5-5.1)
[2018-01-12] MEDS: POLYETHYLENE GLYCOL POWDER 17 GM PACK PO SCH (10:37)
[2018-01-12] MEDS: CARVEDILOL 25 MG TABLET PO SCH ×2 (10:38→21:04)
[2018-01-12] MEDS: amLODIPine 10 MG TABLET PO SCH (10:38)
[2018-01-12] MEDS: ISOSORBIDE MONONITRATE 30 MG TABLET PO SCH (10:38)
[2018-01-12] MEDS: PANTOPRAZOLE 40 MG TABLET PO SCH ×2 (10:38→22:24)
[2018-01-12] MEDS: ASPIRIN EC 81 MG TABLET PO SCH (10:38)
[2018-01-12] MEDS: TORSEMIDE 20 MG TABLET PO SCH (10:38)
[2018-01-12] MEDS: CALCIUM (CARBONATE)/VITAMIN D 600 MG-400 UNIT TABLET PO SCH (10:38)
[2018-01-12] MEDS: DOXYCYCLINE HYCLATE INJ 100 MG in SODIUM CHLORIDE 0.9% 100 ML IV SCH ×2 (10:39→21:11)
[2018-01-12] MEDS: SODIUM BICARB INJ 100 MEQ in DEXTROSE 5% 900 ML IV SCH (21:00)
[2018-01-12] MEDS: ATORVASTATIN 20 MG TABLET PO SCH (21:03)
[2018-01-12] MEDS: DOXAZOSIN 4 MG TABLET PO SCH (21:03)
[2018-01-12] MEDS: cefTRIAXone 1,000 MG in SYRINGE 1 EACH IV SCH (21:05)
[2018-01-13 05:18] LABS: Basophils % 0.1 % (0.0-0.8); Eosinophils # 0.2 10*3/uL (0.0-0.87); Eosinophils % 1.7 % (0.00-10.9); Hematocrit 23.9 VOL% (42.0-52.0); Hemoglobin 7.6 GM/DL (14.0-18.0); Immature Granulocytes % 1.3 %; Immature Granulocytes Absolute 0.14 #; Lymphocytes # 2.3 10*3/uL (1.4-4.0); Lymphocytes % 20.9 % (21.2-54.2); Mean Corpuscular HGB Conc 31.8 GM/DL (32-36); Mean Corpuscular Hemoglobin 28 PG (27-34); Mean Corpuscular Volume 87.2 FL (87-102); Mean Platelet Volume 13.9 FL (9.6-12.0); Monocytes # 1.4 10*3/uL (0.11-0.8); Platelet Count 155 T/CUMM (130-400); Red Blood Count 2.74 MC/CUMM (3.8-5.5); Red Cell Distribution Width 15.2 % (9.3-17.3); White Blood Count 11.1 T/CUMM (4-12)
[2018-01-13 05:45] LABS: Calcium 7.5 MG/DL (8.5-10.1); Osmolality,Calculated 296.4 MOS/KG (273-304); Potassium 4.2 MMOL/L (3.5-5.1)
[2018-01-13 06:42] LABS: HIV Antigen/Antibody Result Nonreactive (Nonreactive)
[2018-01-13] MEDS: ISOSORBIDE MONONITRATE 30 MG TABLET PO SCH (08:59)
[2018-01-13] MEDS: CALCIUM (CARBONATE)/VITAMIN D 600 MG-400 UNIT TABLET PO SCH (08:59)
[2018-01-13] MEDS: CARVEDILOL 25 MG TABLET PO SCH ×2 (08:59→21:26)
[2018-01-13] MEDS: ASPIRIN EC 81 MG TABLET PO SCH (09:00)
[2018-01-13] MEDS: POLYETHYLENE GLYCOL POWDER 17 GM PACK PO SCH (09:00)
[2018-01-13] MEDS: PANTOPRAZOLE 40 MG TABLET PO SCH ×2 (09:00→21:26)
[2018-01-13] MEDS: amLODIPine 10 MG TABLET PO SCH (09:04)
[2018-01-13] MEDS: DOXYCYCLINE HYCLATE INJ 100 MG in SODIUM CHLORIDE 0.9% 100 ML IV SCH ×2 (09:45→21:26)
[2018-01-13] MEDS ORDERED: TUBERCULIN SKIN TEST 0.1 ML SYRINGE INTRADERM ONE (14:00)
[2018-01-13] MEDS: SODIUM BICARB INJ 100 MEQ in DEXTROSE 5% 900 ML IV SCH (14:27)
[2018-01-13] MEDS: cefTRIAXone 1,000 MG in SYRINGE 1 EACH IV SCH (21:26)
[2018-01-13] MEDS: ATORVASTATIN 20 MG TABLET PO SCH (21:26)
[2018-01-13] MEDS: DOXAZOSIN 4 MG TABLET PO SCH (21:26)
[2018-01-13] MEDS: ACETAMINOPHEN 325 MG TABLET PO PRN (21:29)
[2018-01-14 06:22] LABS: Basophils % 0.2 % (0.0-0.8); Eosinophils # 0.2 10*3/uL (0.0-0.87); Eosinophils % 1.8 % (0.00-10.9); Hematocrit 21.8 VOL% (42.0-52.0); Hemoglobin 7.3 GM/DL (14.0-18.0); Immature Granulocytes % 0.9 %; Immature Granulocytes Absolute 0.09 #; Lymphocytes # 2.8 10*3/uL (1.4-4.0); Mean Corpuscular HGB Conc 33.5 GM/DL (32-36); Mean Corpuscular Hemoglobin 28 PG (27-34); Mean Corpuscular Volume 84.8 FL (87-102); Mean Platelet Volume 13.8 FL (9.6-12.0); Monocytes # 1.4 10*3/uL (0.11-0.8); Monocytes % 13.5 % (1.7-12.7); Neutrophils # 5.6 10*3/uL (1.4-7.4); Neutrophils % 55.6 % (38.7-73.9); Platelet Count 136 T/CUMM (130-400); Red Blood Count 2.57 MC/CUMM (3.8-5.5); Red Cell Distribution Width 14.8 % (9.3-17.3)
[2018-01-14 06:51] LABS: Calcium 7.5 MG/DL (8.5-10.1); Osmolality,Calculated 288.7 MOS/KG (273-304); Potassium 3.8 MMOL/L (3.5-5.1)
[2018-01-14] MEDS: ISOSORBIDE MONONITRATE 30 MG TABLET PO SCH (09:07)
[2018-01-14] MEDS: PANTOPRAZOLE 40 MG TABLET PO SCH ×2 (09:07→20:39)
[2018-01-14] MEDS: ASPIRIN EC 81 MG TABLET PO SCH (09:07)
[2018-01-14] MEDS: amLODIPine 10 MG TABLET PO SCH (09:07)
[2018-01-14] MEDS: CARVEDILOL 25 MG TABLET PO SCH ×2 (09:07→20:39)
[2018-01-14] MEDS: CALCIUM (CARBONATE)/VITAMIN D 600 MG-400 UNIT TABLET PO SCH (09:07)
[2018-01-14] MEDS: POLYETHYLENE GLYCOL POWDER 17 GM PACK PO SCH (09:08)
[2018-01-14] MEDS: DOXYCYCLINE HYCLATE INJ 100 MG in SODIUM CHLORIDE 0.9% 100 ML IV SCH ×2 (09:08→20:35)
[2018-01-14] MEDS: SODIUM BICARB INJ 100 MEQ in DEXTROSE 5% 900 ML IV SCH (12:23)
[2018-01-14 12:30] LABS: Ehrlichia Chaffeensis (HME)IgG <1:64 titer (<1:64)
[2018-01-14] MEDS: cefTRIAXone 1,000 MG in SYRINGE 1 EACH IV SCH (20:31)
[2018-01-14] MEDS: DOXAZOSIN 4 MG TABLET PO SCH (20:39)
[2018-01-14] MEDS: ATORVASTATIN 20 MG TABLET PO SCH (20:39)
[2018-01-14] MEDS: ACETAMINOPHEN 325 MG TABLET PO PRN (20:41)
[2018-01-15] MEDS: SODIUM BICARB INJ 100 MEQ in DEXTROSE 5% 900 ML IV SCH (05:36)
[2018-01-15 08:50] LABS: Basophils % 0.1 % (0.0-0.8); Eosinophils # 0.2 10*3/uL (0.0-0.87); Eosinophils % 1.8 % (0.00-10.9); Hematocrit 21.1 VOL% (42.0-52.0); Immature Granulocytes % 0.7 %; Immature Granulocytes Absolute 0.07 #; Lymphocytes # 2.6 10*3/uL (1.4-4.0); Lymphocytes % 25.4 % (21.2-54.2); Mean Corpuscular HGB Conc 33.2 GM/DL (32-36); Mean Corpuscular Hemoglobin 28 PG (27-34); Mean Corpuscular Volume 85.1 FL (87-102); Mean Platelet Volume 14.7 FL (9.6-12.0); Monocytes # 1.2 10*3/uL (0.11-0.8); Monocytes % 11.6 % (1.7-12.7); Neutrophils # 6.2 10*3/uL (1.4-7.4); Neutrophils % 60.4 % (38.7-73.9); Platelet Count 131 T/CUMM (130-400); Red Blood Count 2.48 MC/CUMM (3.8-5.5); White Blood Count 10.2 T/CUMM (4-12)
[2018-01-15 08:58] LABS: Calcium 6.7 MG/DL (8.5-10.1); Osmolality,Calculated 288.5 MOS/KG (273-304); Potassium 4.1 MMOL/L (3.5-5.1)
[2018-01-15] MEDS: ISOSORBIDE MONONITRATE 30 MG TABLET PO SCH (09:15)
[2018-01-15] MEDS: ASPIRIN EC 81 MG TABLET PO SCH (09:15)
[2018-01-15] MEDS: amLODIPine 10 MG TABLET PO SCH (09:15)
[2018-01-15] MEDS: POLYETHYLENE GLYCOL POWDER 17 GM PACK PO SCH (09:15)
[2018-01-15] MEDS: CARVEDILOL 25 MG TABLET PO SCH ×2 (09:15→22:17)
[2018-01-15] MEDS: PANTOPRAZOLE 40 MG TABLET PO SCH ×2 (09:15→22:16)
[2018-01-15] MEDS: CALCIUM (CARBONATE)/VITAMIN D 600 MG-400 UNIT TABLET PO SCH (09:15)
[2018-01-15] MEDS ORDERED: ACETAMINOPHEN 325 MG TABLET PO PRN (10:03)
[2018-01-15] MEDS ORDERED: diphenhydrAMINE CAP 25 MG CAPSULE PO PRN (10:03)
[2018-01-15] MEDS ORDERED: SODIUM CHLORIDE 0.9% 1,000 ML IV PRN (10:03)
[2018-01-15] MEDS: ACETAMINOPHEN 325 MG TABLET PO PRN (17:01)
[2018-01-15] MEDS: DOXAZOSIN 4 MG TABLET PO SCH (22:16)
[2018-01-15] MEDS: cefTRIAXone 1,000 MG in SYRINGE 1 EACH IV SCH (22:17)
[2018-01-15] MEDS: ATORVASTATIN 20 MG TABLET PO SCH (22:17)
[2018-01-16 05:48] LABS: Basophils % 0.3 % (0.0-0.8); Eosinophils # 0.2 10*3/uL (0.0-0.87); Eosinophils % 1.5 % (0.00-10.9); Hematocrit 25.5 VOL% (42.0-52.0); Hemoglobin 8.6 GM/DL (14.0-18.0); Immature Granulocytes % 0.8 %; Immature Granulocytes Absolute 0.08 #; Lymphocytes # 2.4 10*3/uL (1.4-4.0); Lymphocytes % 23.6 % (21.2-54.2); Mean Corpuscular HGB Conc 33.7 GM/DL (32-36); Mean Corpuscular Hemoglobin 28 PG (27-34); Mean Corpuscular Volume 82.8 FL (87-102); Mean Platelet Volume 14.6 FL (9.6-12.0); Monocytes % 10.1 % (1.7-12.7); Neutrophils # 6.6 10*3/uL (1.4-7.4); Neutrophils % 63.7 % (38.7-73.9); Platelet Count 116 T/CUMM (130-400); Red Blood Count 3.08 MC/CUMM (3.8-5.5); Red Cell Distribution Width 16.1 % (9.3-17.3); White Blood Count 10.3 T/CUMM (4-12)
[2018-01-16 05:55] LABS: INR 1.2; PT Patient Result 12.1 SECS; Partial Thromboplastin Time 36.3 SECS (0-40)
[2018-01-16 06:18] LABS: Calcium 7.5 MG/DL (8.5-10.1); Osmolality,Calculated 290.5 MOS/KG (273-304)
[2018-01-16] MEDS: ASPIRIN EC 81 MG TABLET PO SCH (10:20)
[2018-01-16] MEDS: CARVEDILOL 25 MG TABLET PO SCH ×2 (10:21→21:09)
[2018-01-16] MEDS: amLODIPine 10 MG TABLET PO SCH (10:21)
[2018-01-16] MEDS: CALCIUM (CARBONATE)/VITAMIN D 600 MG-400 UNIT TABLET PO SCH (10:22)
[2018-01-16] MEDS: ISOSORBIDE MONONITRATE 30 MG TABLET PO SCH (10:23)
[2018-01-16] MEDS: POLYETHYLENE GLYCOL POWDER 17 GM PACK PO SCH (10:24)
[2018-01-16] MEDS: SODIUM BICARB INJ 100 MEQ in DEXTROSE 5% 900 ML IV SCH (10:28)
[2018-01-16] MEDS: PANTOPRAZOLE 40 MG TABLET PO SCH ×2 (10:28→21:10)
[2018-01-16] MEDS ORDERED: diphenhydrAMINE 2% CREAM 28 GM TUBE TOP PRN (12:16)
[2018-01-16 13:56] LABS: Myeloperoxidase Antibody < 0.2 U
[2018-01-16 14:51] LABS: Histoplasma Immnodiffusion Negative (Negative)
[2018-01-16] MEDS ORDERED: ALUMINUM/MAGNES/SIMETH MAX STR 30 ML UDCUP PO PRN (16:21)
[2018-01-16 16:41] LABS: Q Fever IgM Phase I Screen NEGATIVE (NEGATIVE); Q Fever IgM Phase II Screen NEGATIVE (NEGATIVE)
[2018-01-16] MEDS: cefTRIAXone 1,000 MG in SYRINGE 1 EACH IV SCH (21:08)
[2018-01-16] MEDS: DOXAZOSIN 4 MG TABLET PO SCH (21:10)
[2018-01-16] MEDS: ATORVASTATIN 20 MG TABLET PO SCH (21:14)
[2018-01-17] MEDS: ACETAMINOPHEN 325 MG TABLET PO PRN (01:20)
[2018-01-17 05:43] LABS: Basophils % 0.4 % (0.0-0.8); Eosinophils # 0.2 10*3/uL (0.0-0.87); Eosinophils % 2.4 % (0.00-10.9); Hematocrit 23.4 VOL% (42.0-52.0); Hemoglobin 7.6 GM/DL (14.0-18.0); Immature Granulocytes % 0.7 %; Immature Granulocytes Absolute 0.07 #; Lymphocytes # 2.5 10*3/uL (1.4-4.0); Mean Corpuscular HGB Conc 32.5 GM/DL (32-36); Mean Corpuscular Hemoglobin 28 PG (27-34); Mean Corpuscular Volume 85.1 FL (87-102); Mean Platelet Volume 14.4 FL (9.6-12.0); Monocytes # 1.1 10*3/uL (0.11-0.8); Neutrophils % 60.5 % (38.7-73.9); Platelet Count 103 T/CUMM (130-400); Red Blood Count 2.75 MC/CUMM (3.8-5.5); Red Cell Distribution Width 16.2 % (9.3-17.3)
[2018-01-17 05:55] LABS: Calcium 7.2 MG/DL (8.5-10.1)
[2018-01-17 07:12] LABS: Hypochromasia 1+; Macrocytosis 2+; Platelet Estimate Decreased
[2018-01-17] MEDS: POLYETHYLENE GLYCOL POWDER 17 GM PACK PO SCH (09:42)
[2018-01-17] MEDS: ISOSORBIDE MONONITRATE 30 MG TABLET PO SCH (09:43)
[2018-01-17] MEDS: ASPIRIN EC 81 MG TABLET PO SCH (09:43)
[2018-01-17] MEDS: CARVEDILOL 25 MG TABLET PO SCH ×2 (09:43→21:40)
[2018-01-17] MEDS: CALCIUM (CARBONATE)/VITAMIN D 600 MG-400 UNIT TABLET PO SCH (09:43)
[2018-01-17] MEDS: PANTOPRAZOLE 40 MG TABLET PO SCH ×2 (09:43→21:43)
[2018-01-17] MEDS: amLODIPine 10 MG TABLET PO SCH (09:43)
[2018-01-17] MEDS: SODIUM BICARB INJ 100 MEQ in DEXTROSE 5% 900 ML IV SCH (09:43)
[2018-01-17] MEDS ORDERED: PHYTONADIONE 5 MG/5 ML ORAL.SYR PO ONE (11:52)
[2018-01-17] MEDS: DOXYCYCLINE HYCLATE 100 MG CAPSULE PO SCH ×2 (13:40→21:40)
[2018-01-17] MEDS: DOXAZOSIN 4 MG TABLET PO SCH (21:40)
[2018-01-17] MEDS: ATORVASTATIN 20 MG TABLET PO SCH (21:40)
[2018-01-17] MEDS: cefTRIAXone 1,000 MG in SYRINGE 1 EACH IV SCH (21:43)
[2018-01-18 05:42] LABS: Basophils # 0.1 10*3/uL (0.0-0.2); Basophils % 0.5 % (0.0-0.8); Eosinophils # 0.3 10*3/uL (0.0-0.87); Eosinophils % 2.7 % (0.00-10.9); Hematocrit 24.5 VOL% (42.0-52.0); Hemoglobin 7.7 GM/DL (14.0-18.0); Immature Granulocytes % 0.7 %; Immature Granulocytes Absolute 0.07 #; Lymphocytes # 2.6 10*3/uL (1.4-4.0); Lymphocytes % 25.3 % (21.2-54.2); Mean Corpuscular HGB Conc 31.4 GM/DL (32-36); Mean Corpuscular Hemoglobin 27 PG (27-34); Mean Platelet Volume 14.6 FL (9.6-12.0); Neutrophils # 6.2 10*3/uL (1.4-7.4); Neutrophils % 60.8 % (38.7-73.9); Platelet Count 118 T/CUMM (130-400); Red Blood Count 2.85 MC/CUMM (3.8-5.5); White Blood Count 10.3 T/CUMM (4-12)
[2018-01-18] MEDS: SODIUM BICARB INJ 100 MEQ in DEXTROSE 5% 900 ML IV SCH (05:47)
[2018-01-18 05:48] LABS: INR 1.1; PT Patient Result 11.9 SECS; Partial Thromboplastin Time 35.9 SECS (0-40)
[2018-01-18] MEDS ORDERED: LIDOCAINE 1%/EPI INJ 20 ML VIAL MISC INJ ONE (07:35)
[2018-01-18] MEDS ORDERED: diphenhydrAMINE 50 MG/1 ML VIAL IM ONE (08:00)
[2018-01-18] MEDS ORDERED: LIDOCAINE 2% VISCOUS 100 ML BOTTLE SWISH/SPIT ONE (08:00)
[2018-01-18] MEDS ORDERED: LIDOCAINE 2% 20 ML VIAL RESP TX ONE (08:00)
[2018-01-18] MEDS ORDERED: BENZONATATE 100 MG CAPSULE PO ONE (08:00)
[2018-01-18] MEDS ORDERED: LIDOCAINE 1% 20 ML VIAL MISC INJ ONE (08:30)
[2018-01-18] MEDS ORDERED: MIDAZOLAM 2 MG/2 ML VIAL IV ONE (09:00)
[2018-01-18] MEDS ORDERED: EPINEPHrine 1 MG/ML VIAL ONE (10:05)
[2018-01-18] MEDS ORDERED: MIDAZOLAM 2 MG/2 ML VIAL ONE (10:05)
[2018-01-18] MEDS: CALCIUM (CARBONATE)/VITAMIN D 600 MG-400 UNIT TABLET PO SCH (13:25)
[2018-01-18] MEDS: ISOSORBIDE MONONITRATE 30 MG TABLET PO SCH (13:26)
[2018-01-18] MEDS: ASPIRIN EC 81 MG TABLET PO SCH (13:26)
[2018-01-18] MEDS: CARVEDILOL 25 MG TABLET PO SCH ×2 (13:26→21:31)
[2018-01-18] MEDS: PANTOPRAZOLE 40 MG TABLET PO SCH ×2 (13:26→21:31)
[2018-01-18] MEDS: amLODIPine 10 MG TABLET PO SCH (13:26)
[2018-01-18] MEDS: POLYETHYLENE GLYCOL POWDER 17 GM PACK PO SCH (13:27)
[2018-01-18] MEDS: DOXYCYCLINE HYCLATE 100 MG CAPSULE PO SCH (13:30)
[2018-01-18] MEDS: cefTRIAXone 1,000 MG in SYRINGE 1 EACH IV SCH (21:31)
[2018-01-18] MEDS: ATORVASTATIN 20 MG TABLET PO SCH (21:31)
[2018-01-18] MEDS: DOXAZOSIN 4 MG TABLET PO SCH (21:31)
[2018-01-18] MEDS: ACETAMINOPHEN 325 MG TABLET PO PRN (21:33)
[2018-01-19 06:42] LABS: Basophils % 0.4 % (0.0-0.8); Eosinophils # 0.3 10*3/uL (0.0-0.87); Eosinophils % 3.9 % (0.00-10.9); Hematocrit 22.4 VOL% (42.0-52.0); Hemoglobin 7.2 GM/DL (14.0-18.0); Immature Granulocytes % 0.8 %; Immature Granulocytes Absolute 0.06 #; Lymphocytes # 2.3 10*3/uL (1.4-4.0); Lymphocytes % 29.4 % (21.2-54.2); Mean Corpuscular HGB Conc 32.1 GM/DL (32-36); Mean Corpuscular Hemoglobin 27 PG (27-34); Mean Corpuscular Volume 84.8 FL (87-102); Mean Platelet Volume 14.6 FL (9.6-12.0); Monocytes % 12.1 % (1.7-12.7); Neutrophils # 4.2 10*3/uL (1.4-7.4); Neutrophils % 53.4 % (38.7-73.9); Platelet Count 114 T/CUMM (130-400); Red Blood Count 2.64 MC/CUMM (3.8-5.5); Red Cell Distribution Width 15.9 % (9.3-17.3); White Blood Count 7.9 T/CUMM (4-12)
[2018-01-19 06:58] LABS: Calcium 7.4 MG/DL (8.5-10.1); Osmolality,Calculated 286.8 MOS/KG (273-304)
[2018-01-19] MEDS: ISOSORBIDE MONONITRATE 30 MG TABLET PO SCH (08:19)
[2018-01-19] MEDS: POLYETHYLENE GLYCOL POWDER 17 GM PACK PO SCH (08:19)
[2018-01-19] MEDS: CARVEDILOL 25 MG TABLET PO SCH ×2 (08:19→21:30)
[2018-01-19] MEDS: amLODIPine 10 MG TABLET PO SCH (08:19)
[2018-01-19] MEDS: CALCIUM (CARBONATE)/VITAMIN D 600 MG-400 UNIT TABLET PO SCH (08:19)
[2018-01-19] MEDS: PANTOPRAZOLE 40 MG TABLET PO SCH ×2 (08:19→21:29)
[2018-01-19] MEDS: ASPIRIN EC 81 MG TABLET PO SCH (08:19)
[2018-01-19] MEDS ORDERED: MAGNESIUM SULF INJ 3 GM in SODIUM CHLORIDE 0.9% 100 ML IV ONE (09:02)
[2018-01-19] MEDS: SODIUM BICARB INJ 100 MEQ in DEXTROSE 5% 900 ML IV SCH (09:50)
[2018-01-19] MEDS ORDERED: SODIUM CHLORIDE 0.9% 1,000 ML IV PRN (09:51)
[2018-01-19] MEDS: ACETAMINOPHEN 325 MG TABLET PO PRN ×2 (09:59→21:01)
[2018-01-19] MEDS: THEOPHYLLINE ER (24 HR) 200 MG CAPSULE PO SCH (13:44)
[2018-01-19 18:06] LABS: QuantiFERON-Tb Gold Pl Indeterminate (Negative); TB1 Ag minus Nil Result -0.01 IU/mL; TB2 Ag Minus Result -0.01 IU/mL
[2018-01-19] MEDS: ALBUTEROL 2 MG TABLET PO SCH ×2 (18:28→21:29)
[2018-01-19 19:21] LABS: Hematocrit 27.6 VOL% (42.0-52.0)
[2018-01-19 19:26] LABS: Hemoglobin 9.2 GM/DL (14.0-18.0)
[2018-01-19] MEDS: DOXAZOSIN 4 MG TABLET PO SCH (21:29)
[2018-01-19] MEDS: ATORVASTATIN 20 MG TABLET PO SCH (21:30)
[2018-01-20] MEDS: ALBUTEROL 2 MG TABLET PO SCH ×3 (06:13→21:09)
[2018-01-20 08:12] LABS: Basophils # 0.1 10*3/uL (0.0-0.2); Basophils % 0.7 % (0.0-0.8); Eosinophils # 0.4 10*3/uL (0.0-0.87); Eosinophils % 5.1 % (0.00-10.9); Hematocrit 29.7 VOL% (42.0-52.0); Hemoglobin 9.6 GM/DL (14.0-18.0); Immature Granulocytes % 0.7 %; Immature Granulocytes Absolute 0.05 #; Lymphocytes % 26.8 % (21.2-54.2); Mean Corpuscular HGB Conc 32.3 GM/DL (32-36); Mean Corpuscular Hemoglobin 27 PG (27-34); Mean Platelet Volume 13.8 FL (9.6-12.0); Monocytes # 0.9 10*3/uL (0.11-0.8); Monocytes % 12.8 % (1.7-12.7); Neutrophils # 3.9 10*3/uL (1.4-7.4); Neutrophils % 53.9 % (38.7-73.9); Platelet Count 125 T/CUMM (130-400); Red Blood Count 3.62 MC/CUMM (3.8-5.5); Red Cell Distribution Width 17.5 % (9.3-17.3); White Blood Count 7.3 T/CUMM (4-12)
[2018-01-20 08:40] LABS: Potassium 4.3 MMOL/L (3.5-5.1)
[2018-01-20] MEDS ORDERED: ALBUTEROL/IPRATROPIUM 3 ML NEB RESP TX PRN (10:31)
[2018-01-20] MEDS: ALBUTEROL/IPRATROPIUM 3 ML NEB RESP TX SCH ×3 (11:25→19:27)
[2018-01-20] MEDS: CALCIUM (CARBONATE)/VITAMIN D 600 MG-400 UNIT TABLET PO SCH (12:05)
[2018-01-20] MEDS: CARVEDILOL 25 MG TABLET PO SCH ×2 (12:06→21:10)
[2018-01-20] MEDS: ASPIRIN EC 81 MG TABLET PO SCH (12:06)
[2018-01-20] MEDS: ISOSORBIDE MONONITRATE 30 MG TABLET PO SCH (12:06)
[2018-01-20] MEDS: amLODIPine 10 MG TABLET PO SCH (12:06)
[2018-01-20] MEDS: THEOPHYLLINE ER (24 HR) 200 MG CAPSULE PO SCH (12:06)
[2018-01-20] MEDS: PANTOPRAZOLE 40 MG TABLET PO SCH ×2 (12:07→21:10)
[2018-01-20] MEDS: POLYETHYLENE GLYCOL POWDER 17 GM PACK PO SCH (12:07)
[2018-01-20] MEDS: SODIUM BICARB INJ 100 MEQ in DEXTROSE 5% 900 ML IV SCH (12:11)
[2018-01-20] MEDS: TORSEMIDE 20 MG TABLET PO SCH (13:51)
[2018-01-20] MEDS: LINEZOLID INJ 600 MG in PREMIX 1 EACH IV SCH (15:12)
[2018-01-20] MEDS: DOXAZOSIN 4 MG TABLET PO SCH (21:09)
[2018-01-20] MEDS: ATORVASTATIN 20 MG TABLET PO SCH (21:09)
[2018-01-21] MEDS: LINEZOLID INJ 600 MG in PREMIX 1 EACH IV SCH ×2 (02:40→13:36)
[2018-01-21 05:11] LABS: Basophils # 0.1 10*3/uL (0.0-0.2); Basophils % 0.9 % (0.0-0.8); Eosinophils # 0.4 10*3/uL (0.0-0.87); Eosinophils % 5.8 % (0.00-10.9); Hematocrit 26.5 VOL% (42.0-52.0); Hemoglobin 8.7 GM/DL (14.0-18.0); Immature Granulocytes % 0.9 %; Immature Granulocytes Absolute 0.06 #; Lymphocytes # 2.2 10*3/uL (1.4-4.0); Lymphocytes % 32.2 % (21.2-54.2); Mean Corpuscular HGB Conc 32.8 GM/DL (32-36); Mean Corpuscular Hemoglobin 26 PG (27-34); Mean Corpuscular Volume 80.3 FL (87-102); Mean Platelet Volume 14.4 FL (9.6-12.0); Monocytes # 0.9 10*3/uL (0.11-0.8); Monocytes % 13.9 % (1.7-12.7); Neutrophils # 3.1 10*3/uL (1.4-7.4); Neutrophils % 46.3 % (38.7-73.9); Platelet Count 140 T/CUMM (130-400); Red Cell Distribution Width 17.3 % (9.3-17.3); White Blood Count 6.7 T/CUMM (4-12)
[2018-01-21 05:38] LABS: Calcium 7.5 MG/DL (8.5-10.1); Osmolality,Calculated 280.1 MOS/KG (273-304); Potassium 3.9 MMOL/L (3.5-5.1)
[2018-01-21] MEDS: SODIUM BICARB INJ 100 MEQ in DEXTROSE 5% 900 ML IV SCH (06:51)
[2018-01-21] MEDS: ALBUTEROL/IPRATROPIUM 3 ML NEB RESP TX SCH ×4 (07:18→19:28)
[2018-01-21] MEDS: ALBUTEROL 2 MG TABLET PO SCH ×3 (09:27→21:20)
[2018-01-21] MEDS: PANTOPRAZOLE 40 MG TABLET PO SCH ×2 (09:27→21:22)
[2018-01-21] MEDS: TORSEMIDE 20 MG TABLET PO SCH (09:27)
[2018-01-21] MEDS: ASPIRIN EC 81 MG TABLET PO SCH (09:28)
[2018-01-21] MEDS: CARVEDILOL 25 MG TABLET PO SCH ×2 (09:28→21:22)
[2018-01-21] MEDS: amLODIPine 10 MG TABLET PO SCH (09:28)
[2018-01-21] MEDS: ISOSORBIDE MONONITRATE 30 MG TABLET PO SCH (09:28)
[2018-01-21] MEDS: THEOPHYLLINE ER (24 HR) 200 MG CAPSULE PO SCH (09:28)
[2018-01-21] MEDS: CALCIUM (CARBONATE)/VITAMIN D 600 MG-400 UNIT TABLET PO SCH (09:28)
[2018-01-21] MEDS: POLYETHYLENE GLYCOL POWDER 17 GM PACK PO SCH (09:31)
[2018-01-21] MEDS: DOXAZOSIN 4 MG TABLET PO SCH (21:21)
[2018-01-21] MEDS: ATORVASTATIN 20 MG TABLET PO SCH (21:22)
[2018-01-22] MEDS: LINEZOLID INJ 600 MG in PREMIX 1 EACH IV SCH ×2 (01:52→16:41)
[2018-01-22 05:09] LABS: Basophils % 0.6 % (0.0-0.8); Eosinophils # 0.4 10*3/uL (0.0-0.87); Eosinophils % 5.5 % (0.00-10.9); Hematocrit 25.7 VOL% (42.0-52.0); Hemoglobin 8.6 GM/DL (14.0-18.0); Immature Granulocytes % 1.1 %; Immature Granulocytes Absolute 0.08 #; Lymphocytes # 2.2 10*3/uL (1.4-4.0); Lymphocytes % 30.7 % (21.2-54.2); Mean Corpuscular HGB Conc 33.5 GM/DL (32-36); Mean Corpuscular Hemoglobin 27 PG (27-34); Mean Corpuscular Volume 80.6 FL (87-102); Mean Platelet Volume 14.3 FL (9.6-12.0); Monocytes % 14.4 % (1.7-12.7); Neutrophils # 3.4 10*3/uL (1.4-7.4); Neutrophils % 47.7 % (38.7-73.9); Platelet Count 179 T/CUMM (130-400); Red Blood Count 3.19 MC/CUMM (3.8-5.5)
[2018-01-22 05:28] LABS: Calcium 7.4 MG/DL (8.5-10.1); Osmolality,Calculated 273.4 MOS/KG (273-304)
[2018-01-22] MEDS: ALBUTEROL 2 MG TABLET PO SCH ×3 (06:27→21:29)
[2018-01-22] MEDS: ALBUTEROL/IPRATROPIUM 3 ML NEB RESP TX SCH ×4 (06:51→19:52)
[2018-01-22] MEDS: SODIUM BICARB INJ 100 MEQ in DEXTROSE 5% 900 ML IV SCH (13:17)
[2018-01-22] MEDS: ASPIRIN EC 81 MG TABLET PO SCH (13:27)
[2018-01-22] MEDS: POLYETHYLENE GLYCOL POWDER 17 GM PACK PO SCH (13:28)
[2018-01-22] MEDS: ISOSORBIDE MONONITRATE 30 MG TABLET PO SCH (13:28)
[2018-01-22] MEDS: CALCIUM (CARBONATE)/VITAMIN D 600 MG-400 UNIT TABLET PO SCH (13:28)
[2018-01-22] MEDS: TORSEMIDE 20 MG TABLET PO SCH (13:28)
[2018-01-22] MEDS: CARVEDILOL 25 MG TABLET PO SCH ×2 (13:28→20:12)
[2018-01-22] MEDS: PANTOPRAZOLE 40 MG TABLET PO SCH ×2 (13:29→20:12)
[2018-01-22] MEDS: amLODIPine 10 MG TABLET PO SCH (13:29)
[2018-01-22] MEDS: THEOPHYLLINE ER (24 HR) 200 MG CAPSULE PO SCH (13:29)
[2018-01-22] MEDS: DOXAZOSIN 4 MG TABLET PO SCH (20:10)
[2018-01-22] MEDS: ATORVASTATIN 20 MG TABLET PO SCH (20:11)
[2018-01-23] MEDS: LINEZOLID INJ 600 MG in PREMIX 1 EACH IV SCH ×2 (02:20→13:54)
[2018-01-23 06:02] LABS: Basophils % 0.6 % (0.0-0.8); Eosinophils # 0.3 10*3/uL (0.0-0.87); Eosinophils % 5.2 % (0.00-10.9); Hematocrit 28.2 VOL% (42.0-52.0); Hemoglobin 9.3 GM/DL (14.0-18.0); Immature Granulocytes % 1.1 %; Immature Granulocytes Absolute 0.07 #; Lymphocytes % 31.9 % (21.2-54.2); Mean Corpuscular Hemoglobin 27 PG (27-34); Mean Platelet Volume 13.4 FL (9.6-12.0); Neutrophils # 2.8 10*3/uL (1.4-7.4); Neutrophils % 45.2 % (38.7-73.9); Platelet Count 233 T/CUMM (130-400); Red Blood Count 3.48 MC/CUMM (3.8-5.5); White Blood Count 6.2 T/CUMM (4-12)
[2018-01-23 06:26] LABS: Calcium 7.8 MG/DL (8.5-10.1); Osmolality,Calculated 276.1 MOS/KG (273-304); Potassium 3.9 MMOL/L (3.5-5.1)
[2018-01-23 06:45] LABS: Eosinophils 7 % (0-10); Hypochromasia 1+; Lymphocytes 32 % (20-55); Platelet Estimate Adequate; Segmented Neutrophils 49 % (50-85); Total Cells Counted 100
[2018-01-23] MEDS: ALBUTEROL 2 MG TABLET PO SCH ×3 (07:01→21:39)
[2018-01-23] MEDS: ALBUTEROL/IPRATROPIUM 3 ML NEB RESP TX SCH ×4 (07:09→19:35)
[2018-01-23] MEDS: CARVEDILOL 25 MG TABLET PO SCH ×2 (09:18→20:32)
[2018-01-23] MEDS: ASPIRIN EC 81 MG TABLET PO SCH (09:18)
[2018-01-23] MEDS: THEOPHYLLINE ER (24 HR) 200 MG CAPSULE PO SCH (09:18)
[2018-01-23] MEDS: CALCIUM (CARBONATE)/VITAMIN D 600 MG-400 UNIT TABLET PO SCH (09:18)
[2018-01-23] MEDS: PANTOPRAZOLE 40 MG TABLET PO SCH ×2 (09:19→20:33)
[2018-01-23] MEDS: ISOSORBIDE MONONITRATE 30 MG TABLET PO SCH (09:19)
[2018-01-23] MEDS: TORSEMIDE 20 MG TABLET PO SCH (09:19)
[2018-01-23] MEDS: amLODIPine 10 MG TABLET PO SCH (09:19)
[2018-01-23] MEDS: POLYETHYLENE GLYCOL POWDER 17 GM PACK PO SCH (09:20)
[2018-01-23] MEDS: SODIUM BICARB INJ 100 MEQ in DEXTROSE 5% 900 ML IV SCH (13:33)
[2018-01-23] MEDS: DOXAZOSIN 4 MG TABLET PO SCH (20:31)
[2018-01-23] MEDS: ATORVASTATIN 20 MG TABLET PO SCH (20:32)
[2018-01-24] MEDS: LINEZOLID INJ 600 MG in PREMIX 1 EACH IV SCH ×2 (02:00→14:27)
[2018-01-24] MEDS: ALBUTEROL 2 MG TABLET PO SCH ×3 (06:36→21:00)
[2018-01-24] MEDS: ALBUTEROL/IPRATROPIUM 3 ML NEB RESP TX SCH ×4 (07:05→19:16)
[2018-01-24] MEDS: SODIUM BICARB INJ 100 MEQ in DEXTROSE 5% 900 ML IV SCH (08:51)
[2018-01-24] MEDS: THEOPHYLLINE ER (24 HR) 200 MG CAPSULE PO SCH (08:51)
[2018-01-24] MEDS: CALCIUM (CARBONATE)/VITAMIN D 600 MG-400 UNIT TABLET PO SCH (08:52)
[2018-01-24] MEDS: ISOSORBIDE MONONITRATE 30 MG TABLET PO SCH (08:52)
[2018-01-24] MEDS: CARVEDILOL 25 MG TABLET PO SCH ×2 (08:52→20:58)
[2018-01-24] MEDS: TORSEMIDE 20 MG TABLET PO SCH (08:52)
[2018-01-24] MEDS: amLODIPine 10 MG TABLET PO SCH (08:52)
[2018-01-24] MEDS: ASPIRIN EC 81 MG TABLET PO SCH (08:53)
[2018-01-24] MEDS: PANTOPRAZOLE 40 MG TABLET PO SCH ×2 (08:53→20:58)
[2018-01-24] MEDS: POLYETHYLENE GLYCOL POWDER 17 GM PACK PO SCH (11:58)
[2018-01-24] MEDS: DOXAZOSIN 4 MG TABLET PO SCH (20:58)
[2018-01-24] MEDS: ATORVASTATIN 20 MG TABLET PO SCH (20:58)
[2018-01-25] MEDS: LINEZOLID INJ 600 MG in PREMIX 1 EACH IV SCH (02:30)
[2018-01-25] MEDS: ALBUTEROL 2 MG TABLET PO SCH (06:13)
[2018-01-25 07:34] LABS: Basophils # 0.1 10*3/uL (0.0-0.2); Basophils % 0.7 % (0.0-0.8); Eosinophils # 0.3 10*3/uL (0.0-0.87); Eosinophils % 3.9 % (0.00-10.9); Hematocrit 25.9 VOL% (42.0-52.0); Hemoglobin 8.4 GM/DL (14.0-18.0); Immature Granulocytes % 1.9 %; Immature Granulocytes Absolute 0.13 #; Lymphocytes # 2.2 10*3/uL (1.4-4.0); Lymphocytes % 31.7 % (21.2-54.2); Mean Corpuscular HGB Conc 32.4 GM/DL (32-36); Mean Corpuscular Hemoglobin 27 PG (27-34); Mean Platelet Volume 12.3 FL (9.6-12.0); Monocytes % 14.9 % (1.7-12.7); Neutrophils # 3.2 10*3/uL (1.4-7.4); Neutrophils % 46.9 % (38.7-73.9); Platelet Count 318 T/CUMM (130-400); Red Blood Count 3.12 MC/CUMM (3.8-5.5); White Blood Count 6.9 T/CUMM (4-12)
[2018-01-25] MEDS: ALBUTEROL/IPRATROPIUM 3 ML NEB RESP TX SCH ×2 (07:35→10:45)
[2018-01-25 07:57] LABS: Albumin 1.8 G/DL (3.4-5.0); Bilirubin,Total 0.7 MG/DL (0.2-1.0); Calcium 7.7 MG/DL (8.5-10.1); Osmolality,Calculated 270.2 MOS/KG (273-304); Potassium 3.6 MMOL/L (3.5-5.1); Total Protein 5.5 G/DL (6.4-8.3)
[2018-01-25] MEDS: ASPIRIN EC 81 MG TABLET PO SCH (08:33)
[2018-01-25] MEDS: PANTOPRAZOLE 40 MG TABLET PO SCH (08:33)
[2018-01-25] MEDS: THEOPHYLLINE ER (24 HR) 200 MG CAPSULE PO SCH (08:34)
[2018-01-25] MEDS: TORSEMIDE 20 MG TABLET PO SCH (08:34)
[2018-01-25] MEDS: ISOSORBIDE MONONITRATE 30 MG TABLET PO SCH (08:35)
[2018-01-25] MEDS: POLYETHYLENE GLYCOL POWDER 17 GM PACK PO SCH ×2 (08:35→08:39)
[2018-01-25] MEDS: CALCIUM (CARBONATE)/VITAMIN D 600 MG-400 UNIT TABLET PO SCH (08:35)
[2018-01-25] MEDS: amLODIPine 10 MG TABLET PO SCH (08:35)
[2018-01-25] MEDS: CARVEDILOL 25 MG TABLET PO SCH (08:35)
[2018-01-25] MEDS ORDERED: MAGNESIUM SULF RIDER 2 GM in PREMIX 1 EACH IV PRN (10:08)
[2018-01-25] MEDS ORDERED: MAGNESIUM SULF RIDER 4 GM in PREMIX 1 EACH IV PRN (10:08)
[2018-01-25 11:57] VITALS: BP 136/62
[2018-01-25] MEDS: SODIUM BICARB INJ 100 MEQ in DEXTROSE 5% 900 ML IV SCH (11:59)
== END 2018-01-25 13:24 | disposition swing bed (61) | DRG 854 ==
LOC: N.ED 17:28 → N.EDINP 21:05 → SUATTDRO 21:05 → N.2E 22:27
PROVIDERS: ADMIT Internal Medicine Infectious Disease
PROC: BRONCHB (2018-01-18 09:05)

== ENCOUNTER 2018-02-08 14:19 | Inpatient (IN) ==
[2018-02-08 15:03] LABS: Basophils % 0.2 % (0.0-0.8); Eosinophils # 0.3 10*3/uL (0.0-0.87); Eosinophils % 1.8 % (0.00-10.9); Hematocrit 21.5 VOL% (42.0-52.0); Immature Granulocytes % 1.9 %; Immature Granulocytes Absolute 0.29 #; Lymphocytes # 4.3 10*3/uL (1.4-4.0); Lymphocytes % 27.4 % (21.2-54.2); Mean Corpuscular HGB Conc 32.6 GM/DL (32-36); Mean Corpuscular Hemoglobin 26 PG (27-34); Mean Corpuscular Volume 81.1 FL (87-102); Mean Platelet Volume 11.9 FL (9.6-12.0); Monocytes % 12.7 % (1.7-12.7); Neutrophils # 8.7 10*3/uL (1.4-7.4); Platelet Count 246 T/CUMM (130-400); Red Blood Count 2.65 MC/CUMM (3.8-5.5); Red Cell Distribution Width 17.3 % (9.3-17.3); White Blood Count 15.5 T/CUMM (4-12)
[2018-02-08 15:25] LABS: Albumin 3.1 G/DL (3.4-5.0); Bilirubin,Total 0.5 MG/DL (0.2-1.0); Calcium 8.5 MG/DL (8.5-10.1); Osmolality,Calculated 286.1 MOS/KG (273-304); Potassium 4.7 MMOL/L (3.5-5.1); Total Protein 7.3 G/DL (6.4-8.3)
[2018-02-08] MEDS ORDERED: VANCOMYCIN INJ 1,000 MG in SODIUM CHLORIDE 0.9% 250 ML IV STA ×2 (17:24→17:51)
[2018-02-08] MEDS ORDERED: SODIUM CHLORIDE 0.9% 500 ML IV STA (17:24)
[2018-02-08] MEDS ORDERED: ACETAMINOPHEN 325 MG TABLET PO ONE (17:28)
[2018-02-08] MEDS ORDERED: PROMETHAZINE 25 MG/1 ML VIAL IM PRN (18:38)
[2018-02-08] MEDS ORDERED: ONDANSETRON 4 MG/2 ML VIAL IV PRN (18:38)
[2018-02-08 18:45] LABS: Lactic Acid 2.4 MMOL/L (0.4-2.0)
[2018-02-08 19:11] LABS: Thyroid Stimulating Hormone 2.74 uIU/ml (0.358-3.74)
[2018-02-08] MEDS ORDERED: ALUMINUM/MAGNES/SIMETH MAX STR 30 ML UDCUP PO PRN (19:33)
[2018-02-08] MEDS ORDERED: diphenhydrAMINE 2% CREAM 28 GM TUBE TOP PRN (19:33)
[2018-02-08] MEDS ORDERED: NITROGLYCERIN SL 0.4 MG TABLET SL PRN (19:33)
[2018-02-08] MEDS ORDERED: ALBUTEROL/IPRATROPIUM 3 ML NEB RESP TX PRN (19:33)
[2018-02-08] MEDS ORDERED: ACETAMINOPHEN 325 MG TABLET PO PRN (19:33)
[2018-02-08] MEDS: SODIUM CHLORIDE 0.9% 1,000 ML IV SCH (22:30)
[2018-02-08] MEDS: ALBUTEROL 2 MG TABLET PO SCH (22:54)
[2018-02-08] MEDS: ATORVASTATIN 20 MG TABLET PO SCH (22:55)
[2018-02-08] MEDS: DOXAZOSIN 1 MG TABLET PO SCH (22:55)
[2018-02-08] MEDS: FERROUS GLUCONATE 240 MG TABLET PO SCH (22:55)
[2018-02-08] MEDS: ENOXAPARIN 30 MG/0.3 ML SYRINGE SUBCUT SCH (22:55)
[2018-02-08] MEDS: PANTOPRAZOLE 40 MG TABLET PO SCH (22:55)
[2018-02-08] MEDS: cefTRIAXone 1,000 MG in SYRINGE 1 EACH IV SCH (22:55)
[2018-02-08] MEDS: CARVEDILOL 25 MG TABLET PO SCH (22:55)
[2018-02-09 04:52] LABS: Amylase 83 U/L (25-115); Neutrophils,Synovial Fluid 100 %
[2018-02-09 05:52] LABS: Basophils % 0.3 % (0.0-0.8); Eosinophils # 0.4 10*3/uL (0.0-0.87); Eosinophils % 3.1 % (0.00-10.9); Hematocrit 19.9 VOL% (42.0-52.0); Immature Granulocytes % 1.8 %; Immature Granulocytes Absolute 0.23 #; Lymphocytes # 3.9 10*3/uL (1.4-4.0); Lymphocytes % 30.1 % (21.2-54.2); Mean Corpuscular HGB Conc 32.2 GM/DL (32-36); Mean Corpuscular Hemoglobin 26 PG (27-34); Mean Corpuscular Volume 80.9 FL (87-102); Mean Platelet Volume 12.1 FL (9.6-12.0); Monocytes # 1.6 10*3/uL (0.11-0.8); Monocytes % 12.6 % (1.7-12.7); NRBC # 0.02 10*3/uL; Neutrophils # 6.7 10*3/uL (1.4-7.4); Neutrophils % 52.1 % (38.7-73.9); Platelet Count 236 T/CUMM (130-400); Red Blood Count 2.46 MC/CUMM (3.8-5.5); Red Cell Distribution Width 17.4 % (9.3-17.3); White Blood Count 12.8 T/CUMM (4-12)
[2018-02-09] MEDS: ALBUTEROL 2 MG TABLET PO SCH ×3 (06:16→21:33)
[2018-02-09 06:25] LABS: Albumin 2.2 G/DL (3.4-5.0); Bilirubin,Total 0.7 MG/DL (0.2-1.0); Osmolality,Calculated 293.3 MOS/KG (273-304); Potassium 4.3 MMOL/L (3.5-5.1); Total Protein 6.2 G/DL (6.4-8.3)
[2018-02-09 06:42] LABS: Hemoglobin 6.4 GM/DL (14.0-18.0)
[2018-02-09] MEDS: PANTOPRAZOLE 40 MG TABLET PO SCH ×2 (08:38→21:34)
[2018-02-09] MEDS: TORSEMIDE 20 MG TABLET PO SCH (08:38)
[2018-02-09] MEDS: THEOPHYLLINE ER (24 HR) 200 MG CAPSULE PO SCH (08:39)
[2018-02-09] MEDS: ISOSORBIDE MONONITRATE 30 MG TABLET PO SCH (08:39)
[2018-02-09] MEDS: amLODIPine 10 MG TABLET PO SCH (08:39)
[2018-02-09] MEDS: ASPIRIN EC 81 MG TABLET PO SCH (08:40)
[2018-02-09] MEDS: CARVEDILOL 25 MG TABLET PO SCH ×2 (08:40→16:52)
[2018-02-09] MEDS: CALCIUM (CARBONATE)/VITAMIN D 500 MG-200 UNIT TABLET PO SCH (08:40)
[2018-02-09] MEDS ORDERED: PANTOPRAZOLE 40 MG TABLET PO SCH (09:00)
[2018-02-09] MEDS: POLYETHYLENE GLYCOL POWDER 17 GM PACK PO SCH (09:01)
[2018-02-09] MEDS: FERROUS GLUCONATE 240 MG TABLET PO SCH ×2 (09:12→21:42)
[2018-02-09] MEDS ORDERED: SODIUM CHLORIDE 0.9% 1,000 ML IV PRN (09:30)
[2018-02-09] MEDS ORDERED: FUROSEMIDE 40 MG/4 ML VIAL IV ONE (09:32)
[2018-02-09] MEDS ORDERED: FUROSEMIDE 40 MG/4 ML VIAL IV PRN (09:32)
[2018-02-09] MEDS ORDERED: ACETAMINOPHEN 325 MG TABLET PO PRN ×2 (09:34→09:37)
[2018-02-09] MEDS ORDERED: ACETAMINOPHEN 325 MG TABLET PO ONE (09:37)
[2018-02-09 15:34] LABS: Apearance,Urine CLEAR (Clear); Bilirubin,Urine Negative (Negative); Blood, Urine Negative (Negative); Glucose,Urine (UA) Negative (Negative); Ketones,Urine Negative (Negative); Nitrite,Urine Negative (Negative); Protein,Urine 30 MG/DL; Urine Color Straw (Yellow); Urine Specific Gravity 1.008 (1.001-1.035); Urine Urobilinogen < 2.0 EU/DL (0.2-1.0); WBC,Urine <1 /HPF (0-6)
[2018-02-09] MEDS: SODIUM CHLORIDE 0.9% 1,000 ML IV SCH (15:57)
[2018-02-09 21:26] LABS: Hematocrit 24.5 VOL% (42.0-52.0); Hemoglobin 8.1 GM/DL (14.0-18.0)
[2018-02-09] MEDS: DOXAZOSIN 1 MG TABLET PO SCH (21:33)
[2018-02-09] MEDS: ATORVASTATIN 20 MG TABLET PO SCH (21:34)
[2018-02-09] MEDS: cefTRIAXone 1,000 MG in SYRINGE 1 EACH IV SCH (21:34)
[2018-02-09] MEDS: ENOXAPARIN 30 MG/0.3 ML SYRINGE SUBCUT SCH (21:34)
[2018-02-10 04:57] LABS: Basophils # 0.1 10*3/uL (0.0-0.2); Basophils % 0.5 % (0.0-0.8); Eosinophils # 0.5 10*3/uL (0.0-0.87); Eosinophils % 4.6 % (0.00-10.9); Hematocrit 26.5 VOL% (42.0-52.0); Hemoglobin 8.7 GM/DL (14.0-18.0); Immature Granulocytes % 1.4 %; Immature Granulocytes Absolute 0.16 #; Lymphocytes # 3.7 10*3/uL (1.4-4.0); Lymphocytes % 32.1 % (21.2-54.2); Mean Corpuscular HGB Conc 32.8 GM/DL (32-36); Mean Corpuscular Hemoglobin 27 PG (27-34); Mean Corpuscular Volume 82.3 FL (87-102); Mean Platelet Volume 12.1 FL (9.6-12.0); Monocytes # 1.3 10*3/uL (0.11-0.8); Monocytes % 11.4 % (1.7-12.7); NRBC # 0.03 10*3/uL; Neutrophils # 5.8 10*3/uL (1.4-7.4); Platelet Count 230 T/CUMM (130-400); Red Blood Count 3.22 MC/CUMM (3.8-5.5); Red Cell Distribution Width 16.4 % (9.3-17.3); White Blood Count 11.6 T/CUMM (4-12)
[2018-02-10 05:16] LABS: Calcium 8.2 MG/DL (8.5-10.1); Osmolality,Calculated 289.4 MOS/KG (273-304)
[2018-02-10] MEDS: ALBUTEROL 2 MG TABLET PO SCH ×3 (07:15→21:30)
[2018-02-10] MEDS: SODIUM CHLORIDE 0.9% 1,000 ML IV SCH (07:29)
[2018-02-10] MEDS: amLODIPine 10 MG TABLET PO SCH (08:26)
[2018-02-10] MEDS: POLYETHYLENE GLYCOL POWDER 17 GM PACK PO SCH (08:26)
[2018-02-10] MEDS: CALCIUM (CARBONATE)/VITAMIN D 500 MG-200 UNIT TABLET PO SCH (08:26)
[2018-02-10] MEDS: CARVEDILOL 25 MG TABLET PO SCH ×2 (08:27→16:51)
[2018-02-10] MEDS: PANTOPRAZOLE 40 MG TABLET PO SCH ×2 (08:27→21:30)
[2018-02-10] MEDS: ISOSORBIDE MONONITRATE 30 MG TABLET PO SCH (08:27)
[2018-02-10] MEDS: ASPIRIN EC 81 MG TABLET PO SCH (08:27)
[2018-02-10] MEDS: THEOPHYLLINE ER (24 HR) 200 MG CAPSULE PO SCH (08:27)
[2018-02-10] MEDS: FERROUS GLUCONATE 240 MG TABLET PO SCH ×2 (10:42→21:30)
[2018-02-10] MEDS: TORSEMIDE 20 MG TABLET PO SCH (10:42)
[2018-02-10 13:57] LABS: Rheumatoid Factor < 15 IU/ML (<15); Total Protein 6.2 G/DL (6.4-8.3)
[2018-02-10 14:07] LABS: Immunoglobulin A 375 MG/DL (70-400); Immunoglobulin G 856 MG/DL (700-1600); Immunoglobulin M 64 MG/DL (40-230)
[2018-02-10] MEDS: DOXAZOSIN 1 MG TABLET PO SCH (21:29)
[2018-02-10] MEDS: ATORVASTATIN 20 MG TABLET PO SCH (21:29)
[2018-02-10] MEDS: cefTRIAXone 1,000 MG in SYRINGE 1 EACH IV SCH (21:31)
[2018-02-10] MEDS: ENOXAPARIN 30 MG/0.3 ML SYRINGE SUBCUT SCH (21:31)
[2018-02-11] MEDS: ALBUTEROL 2 MG TABLET PO SCH ×3 (06:11→22:32)
[2018-02-11] MEDS: SODIUM CHLORIDE 0.9% 1,000 ML IV SCH ×3 (06:15→16:32)
[2018-02-11 07:44] LABS: Total Protein (Chem) 6.2 G/DL (6.4-8.3)
[2018-02-11 07:45] LABS: Immunoglobulin A (Chem) 375 MG/DL (70-400); Immunoglobulin G (Chem) 856 MG/DL (700-1600); Immunoglobulin M (Chem) 64 MG/DL (40-230)
[2018-02-11] MEDS: POLYETHYLENE GLYCOL POWDER 17 GM PACK PO SCH (08:11)
[2018-02-11] MEDS: ISOSORBIDE MONONITRATE 30 MG TABLET PO SCH (08:13)
[2018-02-11] MEDS: THEOPHYLLINE ER (24 HR) 200 MG CAPSULE PO SCH (08:13)
[2018-02-11] MEDS: CARVEDILOL 25 MG TABLET PO SCH ×2 (08:14→18:14)
[2018-02-11] MEDS: ASPIRIN EC 81 MG TABLET PO SCH (08:14)
[2018-02-11] MEDS: amLODIPine 10 MG TABLET PO SCH (08:14)
[2018-02-11] MEDS: CALCIUM (CARBONATE)/VITAMIN D 500 MG-200 UNIT TABLET PO SCH (08:15)
[2018-02-11] MEDS: FERROUS GLUCONATE 240 MG TABLET PO SCH ×2 (08:15→20:30)
[2018-02-11] MEDS: PANTOPRAZOLE 40 MG TABLET PO SCH ×2 (08:15→20:30)
[2018-02-11 09:25] LABS: Albumin (SPE) Rel % 48.6 %; Alpha 1 (SPE) 0.3 G/DL (0.1-0.4); Alpha 1 (SPE) Rel % 5.4 %; Alpha 2 (SPE) 0.9 G/DL (0.4-1.0); Alpha 2 (SPE) Rel % 14.7 %; Beta (SPE) Rel % 16.6 %
[2018-02-11 09:26] LABS: Gamma (SPE) Rel % 14.7 %
[2018-02-11 13:48] LABS: Immuno Free Light Chain Lambda 5.76 MG/DL (0.57-2.63); Immuno Free Light Chain Ratio 1.42 MG/DL (0.26-1.65)
[2018-02-11] MEDS: ATORVASTATIN 20 MG TABLET PO SCH (20:30)
[2018-02-11] MEDS: DOXAZOSIN 1 MG TABLET PO SCH (20:30)
[2018-02-12] MEDS: ALBUTEROL 2 MG TABLET PO SCH ×3 (05:29→22:54)
[2018-02-12] MEDS: SODIUM CHLORIDE 0.9% 1,000 ML IV SCH ×2 (05:29→20:05)
[2018-02-12 06:19] LABS: Basophils # 0.1 10*3/uL (0.0-0.2); Basophils % 0.7 % (0.0-0.8); Eosinophils # 0.7 10*3/uL (0.0-0.87); Eosinophils % 6.6 % (0.00-10.9); Hematocrit 29.6 VOL% (42.0-52.0); Hemoglobin 9.5 GM/DL (14.0-18.0); Immature Granulocytes % 1.7 %; Immature Granulocytes Absolute 0.17 #; Lymphocytes # 3.2 10*3/uL (1.4-4.0); Lymphocytes % 31.2 % (21.2-54.2); Mean Corpuscular HGB Conc 32.1 GM/DL (32-36); Mean Corpuscular Hemoglobin 28 PG (27-34); Mean Corpuscular Volume 85.5 FL (87-102); Mean Platelet Volume 11.6 FL (9.6-12.0); Monocytes # 1.1 10*3/uL (0.11-0.8); Monocytes % 10.5 % (1.7-12.7); NRBC # 0.03 10*3/uL; Neutrophils % 49.3 % (38.7-73.9); Platelet Count 244 T/CUMM (130-400); Red Blood Count 3.46 MC/CUMM (3.8-5.5); Red Cell Distribution Width 17.2 % (9.3-17.3); White Blood Count 10.2 T/CUMM (4-12)
[2018-02-12 06:37] LABS: Calcium 8.1 MG/DL (8.5-10.1); Osmolality,Calculated 286.3 MOS/KG (273-304); Potassium 4.2 MMOL/L (3.5-5.1)
[2018-02-12 06:41] LABS: Albumin 2.5 G/DL (3.4-5.0); Bilirubin,Total 0.6 MG/DL (0.2-1.0); Calcium 8.2 MG/DL (8.5-10.1); Osmolality,Calculated 286.3 MOS/KG (273-304); Potassium 4.2 MMOL/L (3.5-5.1); Total Protein 6.7 G/DL (6.4-8.3)
[2018-02-12] MEDS ORDERED: LIDOCAINE 2% 5 ML VIAL ONE (07:39)
[2018-02-12] MEDS ORDERED: PROPOFOL 200 MG/20 ML VIAL IV ONE (07:39)
[2018-02-12] MEDS: CARVEDILOL 25 MG TABLET PO SCH ×2 (09:04→16:54)
[2018-02-12] MEDS: CALCIUM (CARBONATE)/VITAMIN D 500 MG-200 UNIT TABLET PO SCH (09:05)
[2018-02-12] MEDS: THEOPHYLLINE ER (24 HR) 200 MG CAPSULE PO SCH (09:05)
[2018-02-12] MEDS: amLODIPine 10 MG TABLET PO SCH (09:05)
[2018-02-12] MEDS: ISOSORBIDE MONONITRATE 30 MG TABLET PO SCH (09:05)
[2018-02-12] MEDS: FERROUS GLUCONATE 240 MG TABLET PO SCH ×2 (09:05→22:56)
[2018-02-12] MEDS: PANTOPRAZOLE 40 MG TABLET PO SCH ×2 (09:05→22:55)
[2018-02-12] MEDS: POLYETHYLENE GLYCOL POWDER 17 GM PACK PO SCH (09:09)
[2018-02-12] MEDS: DOXAZOSIN 1 MG TABLET PO SCH (22:55)
[2018-02-12] MEDS: ATORVASTATIN 20 MG TABLET PO SCH (22:55)
[2018-02-13 06:16] LABS: Basophils # 0.1 10*3/uL (0.0-0.2); Basophils % 0.7 % (0.0-0.8); Eosinophils # 0.8 10*3/uL (0.0-0.87); Eosinophils % 6.5 % (0.00-10.9); Hematocrit 25.2 VOL% (42.0-52.0); Immature Granulocytes % 1.2 %; Immature Granulocytes Absolute 0.14 #; Lymphocytes # 3.6 10*3/uL (1.4-4.0); Lymphocytes % 30.1 % (21.2-54.2); Mean Corpuscular HGB Conc 31.7 GM/DL (32-36); Mean Corpuscular Hemoglobin 27 PG (27-34); Mean Platelet Volume 11.8 FL (9.6-12.0); Monocytes # 1.4 10*3/uL (0.11-0.8); Monocytes % 11.4 % (1.7-12.7); Neutrophils % 50.1 % (38.7-73.9); Platelet Count 217 T/CUMM (130-400); Red Blood Count 2.93 MC/CUMM (3.8-5.5); Red Cell Distribution Width 17.3 % (9.3-17.3)
[2018-02-13 06:45] LABS: Calcium 7.8 MG/DL (8.5-10.1); Osmolality,Calculated 286.3 MOS/KG (273-304); Potassium 4.2 MMOL/L (3.5-5.1)
[2018-02-13] MEDS: ALBUTEROL 2 MG TABLET PO SCH (07:33)
[2018-02-13] MEDS: PANTOPRAZOLE 40 MG TABLET PO SCH (09:34)
[2018-02-13] MEDS: THEOPHYLLINE ER (24 HR) 200 MG CAPSULE PO SCH (09:34)
[2018-02-13] MEDS: CALCIUM (CARBONATE)/VITAMIN D 500 MG-200 UNIT TABLET PO SCH (09:34)
[2018-02-13] MEDS: ISOSORBIDE MONONITRATE 30 MG TABLET PO SCH (09:34)
[2018-02-13] MEDS: CARVEDILOL 25 MG TABLET PO SCH (09:34)
[2018-02-13] MEDS: FERROUS GLUCONATE 240 MG TABLET PO SCH (09:35)
[2018-02-13] MEDS: POLYETHYLENE GLYCOL POWDER 17 GM PACK PO SCH (09:35)
[2018-02-13] MEDS: amLODIPine 10 MG TABLET PO SCH (09:37)
[2018-02-13 12:06] VITALS: BP 130/61
[2018-02-13] MEDS: SODIUM CHLORIDE 0.9% 1,000 ML IV SCH (14:08)
[2018-02-13 16:02] LABS: Collection Time,Urine 24 HOURS; Total Protein 24 Hr Ur Result 490 MG/24HR (0-149.1); Total Volume,Urine 925 ML (400-2000)
[2018-02-15 06:19] LABS: 24 Hr Protein (Bench) 490 MG/24HR (0-149.1)
== END 2018-02-13 13:52 | disposition home health service (06) | DRG 864 ==
LOC: N.ED 14:19 → N.EDINP 18:38 → SUATTDRO 18:39 → N.2E 19:49
PROVIDERS: ADMIT Internal Medicine; ATTEND Hospitalist

== ENCOUNTER 2019-05-05 15:01 | Inpatient (IN) ==
[2019-05-05 15:46] LABS: Basophils % 0.4 % (0.0-0.8); Eosinophils # 0.2 10*3/uL (0.0-0.87); Eosinophils % 2.2 % (0.00-10.9); Hematocrit 26.1 VOL% (42.0-52.0); Hemoglobin 8.2 GM/DL (14.0-18.0); Immature Granulocytes % 0.6 %; Immature Granulocytes Absolute 0.04 #; Lymphocytes # 3.1 10*3/uL (1.4-4.0); Mean Corpuscular HGB Conc 31.4 GM/DL (32-36); Mean Corpuscular Volume 91.6 FL (87-102); Monocytes % 8.4 % (1.7-12.7); Neutrophils % 44.4 % (38.7-73.9); Platelet Count 129 T/CUMM (130-400); Red Blood Count 2.85 MC/CUMM (3.8-5.5); Red Cell Distribution Width 17.1 % (9.3-17.3); White Blood Count 7.1 T/CUMM (4-12)
[2019-05-05 15:55] LABS: Apearance,Urine CLEAR (Clear); Bilirubin,Urine Negative (Negative); Blood, Urine Negative (Negative); Glucose,Urine (UA) Negative (Negative); Ketones,Urine Negative (Negative); Nitrite,Urine Negative (Negative); Protein,Urine Negative; RBC,Urine 1 /HPF (0-4); Squamous Epithelial Cell,Urine Occasional /HPF (0-10); Urine Color Straw (Yellow); Urine Urobilinogen < 2.0 EU/DL (0.2-1.0); WBC,Urine <1 /HPF (0-6)
[2019-05-05 16:07] LABS: Alanine Aminotransferase 20 U/L (16-61); Albumin 3.3 G/DL (3.4-5.0); Alkaline Phosphatase 71 U/L (45-117); Aspartate Amino Transferase 16 U/L (0-37); Blood Urea Nitrogen 54 MG/DL (7-18); Calcium 8.1 MG/DL (8.5-10.1); Glucose 81 MG/DL (74-106); Total Protein 6.9 G/DL (6.4-8.3); Troponin I 0.026 NG/ML (0.00-0.045)
[2019-05-05 16:14] LABS: Partial Thromboplastin Time 27.8 SECS (20.8-36.0)
[2019-05-05] MEDS ORDERED: MORPHINE 4 MG/1 ML VIAL IV STA (19:02)
[2019-05-05] MEDS ORDERED: ZALEPLON 5 MG CAPSULE PO PRN (19:51)
[2019-05-05] MEDS ORDERED: ONDANSETRON 4 MG/2 ML VIAL IV PRN (19:51)
[2019-05-05] MEDS ORDERED: NITROGLYCERIN SL 0.4 MG TABLET SL PRN (19:51)
[2019-05-05] MEDS ORDERED: ENOXAPARIN 30 MG/0.3 ML SYRINGE SUBCUT SCH (21:00)
[2019-05-05] MEDS: TORSEMIDE 20 MG TABLET PO SCH (21:08)
[2019-05-05] MEDS: CARVEDILOL 25 MG TABLET PO SCH (21:08)
[2019-05-05] MEDS: SODIUM BICARBONATE 650 MG TABLET PO SCH (21:08)
[2019-05-06 05:12] LABS: Basophils % 0.5 % (0.0-0.8); Eosinophils # 0.2 10*3/uL (0.0-0.87); Eosinophils % 3.3 % (0.00-10.9); Hematocrit 24.5 VOL% (42.0-52.0); Hemoglobin 7.6 GM/DL (14.0-18.0); Immature Granulocytes % 0.8 %; Immature Granulocytes Absolute 0.05 #; Lymphocytes # 3.1 10*3/uL (1.4-4.0); Lymphocytes % 49.8 % (21.2-54.2); Mean Corpuscular Volume 91.4 FL (87-102); Mean Platelet Volume 13.6 FL (9.6-12.0); Monocytes % 8.3 % (1.7-12.7); Neutrophils % 37.3 % (38.7-73.9); Platelet Count 122 T/CUMM (130-400); Red Blood Count 2.68 MC/CUMM (3.8-5.5); Red Cell Distribution Width 17.3 % (9.3-17.3); White Blood Count 6.3 T/CUMM (4-12)
[2019-05-06 05:40] LABS: Calcium 7.8 MG/DL (8.5-10.1)
[2019-05-06 05:48] LABS: Eosinophils 6 % (0-10); Hypochromasia 1+; Lymphocytes 51 % (20-55); Metamyelocytes 2 %; Microcytosis 1+; Platelet Estimate Decreased; Polychromasia Few; Segmented Neutrophils 36 % (50-85); Total Cells Counted 100
[2019-05-06] MEDS: SODIUM BICARBONATE 650 MG TABLET PO SCH ×2 (08:35→20:36)
[2019-05-06] MEDS: PANTOPRAZOLE 40 MG TABLET PO SCH (08:35)
[2019-05-06] MEDS: ALLOPURINOL 100 MG TABLET PO SCH (08:35)
[2019-05-06] MEDS: TORSEMIDE 20 MG TABLET PO SCH ×2 (08:35→20:35)
[2019-05-06] MEDS: CARVEDILOL 25 MG TABLET PO SCH ×2 (08:35→20:36)
[2019-05-06] MEDS: POLYETHYLENE GLYCOL POWDER 17 GM PACK PO SCH (08:36)
[2019-05-06] MEDS: CALCIUM (CARBONATE)/VITAMIN D 250 MG-125 UNIT TABLET PO SCH (08:36)
[2019-05-06] MEDS: FLUTICASONE 50 MCG NASAL SPRAY 16 GM BOTTLE BOTH NARES SCH (08:37)
[2019-05-06] MEDS: HEPARIN 5,000 UNIT/1 ML VIAL SUBCUT SCH ×2 (08:37→20:37)
[2019-05-06] MEDS ORDERED: SODIUM CHLORIDE 0.9% 1,000 ML IV PRN (08:51)
[2019-05-06] MEDS ORDERED: amLODIPine 5 MG TABLET PO SCH (09:00)
[2019-05-06 09:21] LABS: % Iron Saturation 21.8 % (18-50); Ferritin 263.8 ng/ml (26-388)
[2019-05-06 10:06] LABS: Folate 16.6 NG/ML (5.4-24.0)
[2019-05-06] MEDS: ISOSORBIDE MONONITRATE 60 MG TABLET PO SCH (10:07)
[2019-05-06] MEDS: LIDOCAINE 5% PATCH TRANSDERM SCH (13:35)
[2019-05-06 17:26] LABS: Hematocrit 27.7 VOL% (42.0-52.0); Hemoglobin 8.8 GM/DL (14.0-18.0)
[2019-05-06] MEDS: DOXAZOSIN 4 MG TABLET PO SCH (20:36)
[2019-05-07] MEDS ORDERED: MORPHINE 4 MG/1 ML VIAL IV ONE (03:51)
[2019-05-07 05:05] LABS: Basophils % 0.4 % (0.0-0.8); Eosinophils # 0.2 10*3/uL (0.0-0.87); Eosinophils % 2.1 % (0.00-10.9); Hemoglobin 9.1 GM/DL (14.0-18.0); Immature Granulocytes % 0.7 %; Immature Granulocytes Absolute 0.07 #; Lymphocytes # 3.3 10*3/uL (1.4-4.0); Lymphocytes % 30.5 % (21.2-54.2); Mean Corpuscular HGB Conc 31.4 GM/DL (32-36); Mean Corpuscular Volume 90.6 FL (87-102); Mean Platelet Volume 13.9 FL (9.6-12.0); Monocytes % 6.2 % (1.7-12.7); NRBC # 0.02 10*3/uL; Neutrophils % 60.1 % (38.7-73.9); Platelet Count 152 T/CUMM (130-400); Red Cell Distribution Width 16.8 % (9.3-17.3); White Blood Count 10.7 T/CUMM (4-12)
[2019-05-07 05:20] LABS: Calcium 8.1 MG/DL (8.5-10.1); Osmolality,Calculated 296.1 MOS/KG (273-304)
[2019-05-07] MEDS ORDERED: SODIUM POLYSTYRENE SULFATE 15 GM/60 ML BOTTLE PO STA (07:02)
[2019-05-07] MEDS: FLUTICASONE 50 MCG NASAL SPRAY 16 GM BOTTLE BOTH NARES SCH (08:20)
[2019-05-07] MEDS: IRON SUCROSE 200 MG in SODIUM CHLORIDE 0.9% 100 ML IV SCH (08:20)
[2019-05-07] MEDS: ASPIRIN EC 81 MG TABLET PO SCH (08:22)
[2019-05-07] MEDS: CARVEDILOL 25 MG TABLET PO SCH ×2 (08:22→20:28)
[2019-05-07] MEDS: LIDOCAINE 5% PATCH TRANSDERM SCH (08:22)
[2019-05-07] MEDS: ATORVASTATIN 40 MG TABLET PO SCH (08:22)
[2019-05-07] MEDS: ALLOPURINOL 100 MG TABLET PO SCH (08:23)
[2019-05-07] MEDS: TORSEMIDE 20 MG TABLET PO SCH (08:23)
[2019-05-07] MEDS: HEPARIN 5,000 UNIT/1 ML VIAL SUBCUT SCH ×2 (08:23→20:30)
[2019-05-07] MEDS: CALCIUM (CARBONATE)/VITAMIN D 250 MG-125 UNIT TABLET PO SCH (08:23)
[2019-05-07] MEDS: ISOSORBIDE MONONITRATE 60 MG TABLET PO SCH (08:23)
[2019-05-07] MEDS: SODIUM BICARBONATE 650 MG TABLET PO SCH ×2 (08:23→20:29)
[2019-05-07] MEDS: PANTOPRAZOLE 40 MG TABLET PO SCH ×2 (08:23→08:24)
[2019-05-07] MEDS: POLYETHYLENE GLYCOL POWDER 17 GM PACK PO SCH (08:24)
[2019-05-07] MEDS ORDERED: FUROSEMIDE 40 MG/4 ML VIAL IV ONE (10:20)
[2019-05-07] MEDS: METHOCARBAMOL 500 MG TABLET PO SCH ×3 (11:36→20:28)
[2019-05-07] MEDS: ALBUTEROL/IPRATROPIUM 3 ML NEB RESP TX SCH ×2 (15:02→19:10)
[2019-05-07] MEDS: DOXAZOSIN 4 MG TABLET PO SCH (20:28)
[2019-05-08] MEDS: ALBUTEROL/IPRATROPIUM 3 ML NEB RESP TX SCH ×2 (01:37→07:44)
[2019-05-08 05:12] LABS: Basophils % 0.5 % (0.0-0.8); Eosinophils # 0.1 10*3/uL (0.0-0.87); Eosinophils % 1.4 % (0.00-10.9); Hematocrit 25.3 VOL% (42.0-52.0); Hemoglobin 7.9 GM/DL (14.0-18.0); Immature Granulocytes % 0.8 %; Immature Granulocytes Absolute 0.07 #; Lymphocytes # 3.4 10*3/uL (1.4-4.0); Lymphocytes % 40.7 % (21.2-54.2); Mean Corpuscular HGB Conc 31.2 GM/DL (32-36); Mean Corpuscular Volume 91.3 FL (87-102); Mean Platelet Volume 13.7 FL (9.6-12.0); Monocytes % 8.8 % (1.7-12.7); Neutrophils % 47.8 % (38.7-73.9); Platelet Count 132 T/CUMM (130-400); Red Blood Count 2.77 MC/CUMM (3.8-5.5); Red Cell Distribution Width 16.9 % (9.3-17.3); White Blood Count 8.4 T/CUMM (4-12)
[2019-05-08 05:32] LABS: Calcium 7.8 MG/DL (8.5-10.1); Osmolality,Calculated 292.3 MOS/KG (273-304)
[2019-05-08 07:28] VITALS: BP 149/70
[2019-05-08] MEDS: IRON SUCROSE 200 MG in SODIUM CHLORIDE 0.9% 100 ML IV SCH (08:41)
[2019-05-08] MEDS: METHOCARBAMOL 500 MG TABLET PO SCH (08:42)
[2019-05-08] MEDS: LIDOCAINE 5% PATCH TRANSDERM SCH (08:42)
[2019-05-08] MEDS: POLYETHYLENE GLYCOL POWDER 17 GM PACK PO SCH (08:42)
[2019-05-08] MEDS: PANTOPRAZOLE 40 MG TABLET PO SCH ×2 (08:42→08:43)
[2019-05-08] MEDS: ISOSORBIDE MONONITRATE 60 MG TABLET PO SCH (08:42)
[2019-05-08] MEDS: HEPARIN 5,000 UNIT/1 ML VIAL SUBCUT SCH (08:42)
[2019-05-08] MEDS: ASPIRIN EC 81 MG TABLET PO SCH (08:42)
[2019-05-08] MEDS: SODIUM BICARBONATE 650 MG TABLET PO SCH (08:42)
[2019-05-08] MEDS: CARVEDILOL 25 MG TABLET PO SCH (08:42)
[2019-05-08] MEDS: ALLOPURINOL 100 MG TABLET PO SCH (08:43)
[2019-05-08] MEDS: CALCIUM (CARBONATE)/VITAMIN D 250 MG-125 UNIT TABLET PO SCH (08:43)
[2019-05-08] MEDS: FLUTICASONE 50 MCG NASAL SPRAY 16 GM BOTTLE BOTH NARES SCH (08:43)
[2019-05-08] MEDS: ATORVASTATIN 40 MG TABLET PO SCH (08:43)
== END 2019-05-08 12:05 | disposition home or self-care (01) | DRG 291 ==
LOC: EDBD → EDUNIT# → N.EDINP 15:01 → N.ED 15:01 → SUATTDRO 18:04 → N.5E 19:32
PROVIDERS: ADMIT Internal Medicine; ATTEND Internal Medicine

== ENCOUNTER 2019-06-21 03:45 | Observation (INO) ==
[2019-06-21] MEDS ORDERED: FUROSEMIDE 40 MG/4 ML VIAL IV STA (03:46)
[2019-06-21] MEDS ORDERED: ALBUTEROL/IPRATROPIUM 3 ML NEB RESP TX STA (03:46)
[2019-06-21 04:02] LABS: Basophils # 0.1 10*3/uL (0.0-0.2); Basophils % 0.6 % (0.0-0.8); Eosinophils # 0.6 10*3/uL (0.0-0.87); Eosinophils % 7.4 % (0.00-10.9); Hematocrit 27.4 VOL% (42.0-52.0); Hemoglobin 8.5 GM/DL (14.0-18.0); Immature Granulocytes % 0.4 %; Immature Granulocytes Absolute 0.03 #; Lymphocytes # 3.2 10*3/uL (1.4-4.0); Lymphocytes % 38.3 % (21.2-54.2); Mean Corpuscular Volume 92.6 FL (87-102); Mean Platelet Volume 12.4 FL (9.6-12.0); Monocytes % 6.1 % (1.7-12.7); Neutrophils % 47.2 % (38.7-73.9); Platelet Count 106 T/CUMM (130-400); Red Blood Count 2.96 MC/CUMM (3.8-5.5); Red Cell Distribution Width 14.7 % (9.3-17.3); White Blood Count 8.4 T/CUMM (4-12)
[2019-06-21 04:10] LABS: INR 1.1; PT Patient Result 11.6 SECS (9.6-12.2)
[2019-06-21 04:20] LABS: Albumin 3.5 G/DL (3.4-5.0); Bilirubin,Total 0.5 MG/DL (0.2-1.0); Calcium 8.1 MG/DL (8.5-10.1); Total Protein 6.6 G/DL (6.4-8.3)
[2019-06-21] MEDS ORDERED: MAGNESIUM SULF RIDER 2 GM in PREMIX 1 EACH IV PRN (04:53)
[2019-06-21] MEDS ORDERED: MAGNESIUM SULF RIDER 4 GM in PREMIX 1 EACH IV PRN (04:53)
[2019-06-21] MEDS ORDERED: ACETAMINOPHEN 325 MG TABLET PO PRN (04:53)
[2019-06-21] MEDS ORDERED: ONDANSETRON 4 MG/2 ML VIAL IV PRN (04:53)
[2019-06-21] MEDS ORDERED: hydrALAZINE 20 MG/1 ML VIAL ONE (05:35)
[2019-06-21] MEDS ORDERED: ALBUTEROL/IPRATROPIUM 3 ML NEB RESP TX PRN (05:39)
[2019-06-21] MEDS ORDERED: hydrALAZINE 20 MG/1 ML VIAL IV ONE (05:40)
[2019-06-21] MEDS ORDERED: hydrALAZINE 20 MG/1 ML VIAL IV PRN (05:55)
[2019-06-21] MEDS ORDERED: METHOCARBAMOL 500 MG TABLET PO PRN (05:55)
[2019-06-21] MEDS: FUROSEMIDE 40 MG/4 ML VIAL IV SCH ×2 (08:40→16:49)
[2019-06-21] MEDS: ENOXAPARIN 30 MG/0.3 ML SYRINGE SUBCUT SCH (08:40)
[2019-06-21] MEDS: ASPIRIN EC 81 MG TABLET PO SCH (08:41)
[2019-06-21] MEDS: SODIUM BICARBONATE 650 MG TABLET PO SCH ×2 (08:41→21:08)
[2019-06-21] MEDS: ISOSORBIDE MONONITRATE 60 MG TABLET PO SCH (08:41)
[2019-06-21] MEDS: POLYETHYLENE GLYCOL POWDER 17 GM PACK PO SCH (08:41)
[2019-06-21] MEDS: FERROUS SULFATE 325 MG TABLET PO SCH ×2 (08:42→16:51)
[2019-06-21] MEDS: ALLOPURINOL 100 MG TABLET PO SCH (08:42)
[2019-06-21] MEDS: ATORVASTATIN 40 MG TABLET PO SCH (08:42)
[2019-06-21] MEDS: PANTOPRAZOLE 40 MG TABLET PO SCH (08:42)
[2019-06-21] MEDS: carvediloL 25 MG TABLET PO SCH ×2 (08:42→21:08)
[2019-06-21] MEDS: FLUTICASONE 50 MCG NASAL SPRAY 16 GM BOTTLE BOTH NARES SCH (11:32)
[2019-06-21] MEDS: CALCIUM (CARBONATE)/VITAMIN D 250 MG-125 UNIT TABLET PO SCH (11:34)
[2019-06-21] MEDS ORDERED: NITROGLYCERIN SL 0.4 MG TABLET SL PRN (13:30)
[2019-06-21] MEDS ORDERED: TORSEMIDE 20 MG TABLET PO SCH (14:00)
[2019-06-21] MEDS: amLODIPine 5 MG TABLET PO SCH (16:51)
[2019-06-21] MEDS: DOXAZOSIN 4 MG TABLET PO SCH (21:08)
[2019-06-22 04:37] LABS: Basophils % 0.4 % (0.0-0.8); Eosinophils # 0.5 10*3/uL (0.0-0.87); Eosinophils % 4.9 % (0.00-10.9); Hematocrit 27.9 VOL% (42.0-52.0); Hemoglobin 8.8 GM/DL (14.0-18.0); Immature Granulocytes % 0.5 %; Immature Granulocytes Absolute 0.05 #; Lymphocytes # 2.6 10*3/uL (1.4-4.0); Lymphocytes % 26.7 % (21.2-54.2); Mean Corpuscular HGB Conc 31.5 GM/DL (32-36); Mean Corpuscular Volume 90.3 FL (87-102); Mean Platelet Volume 13.8 FL (9.6-12.0); Monocytes % 7.5 % (1.7-12.7); Platelet Count 113 T/CUMM (130-400); Red Blood Count 3.09 MC/CUMM (3.8-5.5); Red Cell Distribution Width 14.4 % (9.3-17.3); White Blood Count 9.8 T/CUMM (4-12)
[2019-06-22 04:59] LABS: Albumin 3.2 G/DL (3.4-5.0); Bilirubin,Total 0.7 MG/DL (0.2-1.0); Calcium 8.1 MG/DL (8.5-10.1); Osmolality,Calculated 298.4 MOS/KG (273-304); Total Protein 6.4 G/DL (6.4-8.3)
[2019-06-22] MEDS: FUROSEMIDE 40 MG/4 ML VIAL IV SCH ×2 (09:08→16:31)
[2019-06-22] MEDS: ENOXAPARIN 30 MG/0.3 ML SYRINGE SUBCUT SCH (09:09)
[2019-06-22] MEDS: CALCIUM (CARBONATE)/VITAMIN D 250 MG-125 UNIT TABLET PO SCH (09:10)
[2019-06-22] MEDS: PANTOPRAZOLE 40 MG TABLET PO SCH (09:10)
[2019-06-22] MEDS: ISOSORBIDE MONONITRATE 60 MG TABLET PO SCH (09:10)
[2019-06-22] MEDS: FERROUS SULFATE 325 MG TABLET PO SCH ×2 (09:10→16:31)
[2019-06-22] MEDS: ASPIRIN EC 81 MG TABLET PO SCH (09:10)
[2019-06-22] MEDS: SODIUM BICARBONATE 650 MG TABLET PO SCH ×2 (09:10→20:46)
[2019-06-22] MEDS: amLODIPine 5 MG TABLET PO SCH (09:11)
[2019-06-22] MEDS: carvediloL 25 MG TABLET PO SCH ×2 (09:11→20:46)
[2019-06-22] MEDS: ATORVASTATIN 40 MG TABLET PO SCH (09:11)
[2019-06-22] MEDS: ALLOPURINOL 100 MG TABLET PO SCH (09:11)
[2019-06-22] MEDS: FLUTICASONE 50 MCG NASAL SPRAY 16 GM BOTTLE BOTH NARES SCH (09:13)
[2019-06-22] MEDS: POLYETHYLENE GLYCOL POWDER 17 GM PACK PO SCH (09:13)
[2019-06-22] MEDS: DOXAZOSIN 4 MG TABLET PO SCH (20:50)
[2019-06-23] MEDS: amLODIPine 5 MG TABLET PO SCH (10:03)
[2019-06-23] MEDS: SODIUM BICARBONATE 650 MG TABLET PO SCH (10:03)
[2019-06-23] MEDS: ATORVASTATIN 40 MG TABLET PO SCH (10:03)
[2019-06-23] MEDS: PANTOPRAZOLE 40 MG TABLET PO SCH (10:03)
[2019-06-23] MEDS: ASPIRIN EC 81 MG TABLET PO SCH (10:03)
[2019-06-23] MEDS: ALLOPURINOL 100 MG TABLET PO SCH (10:03)
[2019-06-23] MEDS: ISOSORBIDE MONONITRATE 60 MG TABLET PO SCH (10:03)
[2019-06-23] MEDS: FLUTICASONE 50 MCG NASAL SPRAY 16 GM BOTTLE BOTH NARES SCH (10:04)
[2019-06-23] MEDS: carvediloL 25 MG TABLET PO SCH (10:04)
[2019-06-23] MEDS: ENOXAPARIN 30 MG/0.3 ML SYRINGE SUBCUT SCH (10:04)
[2019-06-23] MEDS: FUROSEMIDE 40 MG/4 ML VIAL IV SCH (10:04)
[2019-06-23] MEDS: POLYETHYLENE GLYCOL POWDER 17 GM PACK PO SCH (10:04)
[2019-06-23] MEDS: CALCIUM (CARBONATE)/VITAMIN D 250 MG-125 UNIT TABLET PO SCH (10:04)
[2019-06-23] MEDS: FERROUS SULFATE 325 MG TABLET PO SCH (10:04)
[2019-06-23 12:30] VITALS: BP 160/70
== END 2019-06-23 13:30 | disposition home health service (06) ==
LOC: EDUNIT# → N.ED 03:45 → INTOOBSV 04:53 → SUATTDRO 04:53 → N.EDINP 04:53 → N.5E 05:23
PROVIDERS: ADMIT Family Medicine; ATTEND Internal Medicine

== ENCOUNTER 2019-07-09 07:11 | Inpatient (IN) ==
[2019-07-09] MEDS ORDERED: FUROSEMIDE 100 MG/10 ML VIAL IV STA (07:43)
[2019-07-09 07:51] LABS: Basophils # 0.1 10*3/uL (0.0-0.2); Basophils % 0.6 % (0.0-0.8); Eosinophils # 0.5 10*3/uL (0.0-0.87); Eosinophils % 6.5 % (0.00-10.9); Hematocrit 26.8 VOL% (42.0-52.0); Hemoglobin 8.2 GM/DL (14.0-18.0); Immature Granulocytes % 0.6 %; Immature Granulocytes Absolute 0.05 #; Lymphocytes # 2.7 10*3/uL (1.4-4.0); Mean Corpuscular HGB Conc 30.6 GM/DL (32-36); Mean Corpuscular Volume 93.4 FL (87-102); Mean Platelet Volume 13.8 FL (9.6-12.0); Monocytes % 8.4 % (1.7-12.7); Neutrophils % 49.9 % (38.7-73.9); Platelet Count 144 T/CUMM (130-400); Red Blood Count 2.87 MC/CUMM (3.8-5.5); Red Cell Distribution Width 14.4 % (9.3-17.3); White Blood Count 7.9 T/CUMM (4-12)
[2019-07-09 08:00] LABS: INR 1.1; PT Patient Result 11.6 SECS (9.6-12.2); Partial Thromboplastin Time 27.5 SECS (20.8-36.0)
[2019-07-09 08:29] LABS: Albumin 3.6 G/DL (3.4-5.0); Bilirubin,Total 0.5 MG/DL (0.2-1.0); Calcium 8.5 MG/DL (8.5-10.1); Osmolality,Calculated 298.1 MOS/KG (273-304); Total Protein 7.1 G/DL (6.4-8.3)
[2019-07-09] MEDS ORDERED: ONDANSETRON 4 MG/2 ML VIAL IV PRN (10:25)
[2019-07-09] MEDS ORDERED: ACETAMINOPHEN 325 MG TABLET PO PRN (10:25)
[2019-07-09] MEDS ORDERED: LACTULOSE 20 GM/30 ML UDCUP PO PRN (10:25)
[2019-07-09] MEDS ORDERED: ALBUTEROL 2.5 MG/3 ML NEB RESP TX PRN (10:34)
[2019-07-09 10:58] LABS: Risk Ratio 4.24; Thyroid Stimulating Hormone 4.67 uIU/ml (0.358-3.74); VLDL CHOLESTEROL 16.4 MG/DL
[2019-07-09] MEDS: cefTRIAXone 1,000 MG in SYRINGE 1 EACH IV SCH (11:25)
[2019-07-09] MEDS: methylPREDNISolone SOD SUC 40 MG/1 ML VIAL IV SCH (11:25)
[2019-07-09] MEDS: AZITHROMYCIN INJ 500 MG in SODIUM CHLORIDE 0.9% 250 ML IV SCH (11:25)
[2019-07-09] MEDS ORDERED: tiZANidine 4 MG TABLET PO PRN (12:15)
[2019-07-09] MEDS ORDERED: POLYETHYLENE GLYCOL POWDER 17 GM PACK PO PRN (12:15)
[2019-07-09] MEDS ORDERED: NITROGLYCERIN SL 0.4 MG TABLET SL PRN (12:15)
[2019-07-09] MEDS: ALBUTEROL/IPRATROPIUM 3 ML NEB RESP TX SCH ×3 (13:36→19:38)
[2019-07-09 15:16] LABS: Apearance,Urine CLEAR (Clear); Bacteria,Urine Occasional /HPF (Few); Bilirubin,Urine Negative (Negative); Blood, Urine Negative (Negative); Glucose,Urine (UA) Negative (Negative); Ketones,Urine Negative (Negative); Mucus,Urine Occasional /LPF (Occasional); Nitrite,Urine Negative (Negative); Protein,Urine Negative; RBC,Urine 1 /HPF (0-4); Urine Color Colorless (Yellow); Urine Specific Gravity 1.005 (1.001-1.035); Urine Urobilinogen < 2.0 EU/DL (0.2-1.0); WBC,Urine <1 /HPF (0-6)
[2019-07-09] MEDS: FUROSEMIDE 40 MG/4 ML VIAL IV SCH (16:04)
[2019-07-09] MEDS: FERROUS SULFATE 325 MG TABLET PO SCH (21:17)
[2019-07-09] MEDS: DOXAZOSIN 4 MG TABLET PO SCH (21:17)
[2019-07-09] MEDS: carvediloL 25 MG TABLET PO SCH (21:17)
[2019-07-09] MEDS: SODIUM BICARBONATE 650 MG TABLET PO SCH (21:18)
[2019-07-09] MEDS: ATORVASTATIN 40 MG TABLET PO SCH (21:18)
[2019-07-10] MEDS: methylPREDNISolone SOD SUC 40 MG/1 ML VIAL IV SCH ×3 (00:19→22:13)
[2019-07-10] MEDS: ALBUTEROL/IPRATROPIUM 3 ML NEB RESP TX SCH ×4 (00:29→19:41)
[2019-07-10 06:02] LABS: Calcium 8.6 MG/DL (8.5-10.1)
[2019-07-10 06:13] LABS: Free T4 (Free Thyroxine) 1.16 NG/DL (0.76-1.46)
[2019-07-10 06:33] LABS: Basophils % 0.2 % (0.0-0.8); Hematocrit 26.1 VOL% (42.0-52.0); Hemoglobin 8.1 GM/DL (14.0-18.0); Immature Granulocytes % 0.5 %; Immature Granulocytes Absolute 0.04 #; Lymphocytes # 0.8 10*3/uL (1.4-4.0); Mean Corpuscular Volume 92.2 FL (87-102); Mean Platelet Volume 14.5 FL (9.6-12.0); Monocytes % 0.5 % (1.7-12.7); Neutrophils % 89.8 % (38.7-73.9); Platelet Count 142 T/CUMM (130-400); Red Blood Count 2.83 MC/CUMM (3.8-5.5); Red Cell Distribution Width 14.2 % (9.3-17.3); White Blood Count 8.4 T/CUMM (4-12)
[2019-07-10] MEDS ORDERED: TORSEMIDE 20 MG TABLET PO SCH (09:00)
[2019-07-10] MEDS ORDERED: SODIUM POLYSTYRENE SULFATE 15 GM/60 ML BOTTLE PO ONE (10:29)
[2019-07-10] MEDS: ISOSORBIDE MONONITRATE 60 MG TABLET PO SCH (10:56)
[2019-07-10] MEDS: PANTOPRAZOLE 40 MG TABLET PO SCH (10:56)
[2019-07-10] MEDS: FUROSEMIDE 40 MG/4 ML VIAL IV SCH ×2 (10:56→17:05)
[2019-07-10] MEDS: SODIUM BICARBONATE 650 MG TABLET PO SCH ×2 (10:57→21:44)
[2019-07-10] MEDS: ALLOPURINOL 100 MG TABLET PO SCH (10:57)
[2019-07-10] MEDS: carvediloL 25 MG TABLET PO SCH ×2 (10:57→21:44)
[2019-07-10] MEDS: FERROUS SULFATE 325 MG TABLET PO SCH ×2 (10:57→21:44)
[2019-07-10] MEDS: metOLazone 2.5 MG TABLET PO SCH (10:57)
[2019-07-10] MEDS: ASPIRIN EC 81 MG TABLET PO SCH (10:57)
[2019-07-10] MEDS: FLUTICASONE 50 MCG NASAL SPRAY 16 GM BOTTLE BOTH NARES SCH (10:57)
[2019-07-10] MEDS: AZITHROMYCIN INJ 500 MG in SODIUM CHLORIDE 0.9% 250 ML IV SCH (11:02)
[2019-07-10] MEDS: cefTRIAXone 1,000 MG in SYRINGE 1 EACH IV SCH (11:03)
[2019-07-10] MEDS: ATORVASTATIN 40 MG TABLET PO SCH (21:44)
[2019-07-10] MEDS: DOXAZOSIN 4 MG TABLET PO SCH (21:44)
[2019-07-11] MEDS: ALBUTEROL/IPRATROPIUM 3 ML NEB RESP TX SCH ×3 (00:53→12:34)
[2019-07-11 04:53] LABS: Basophils % 0.1 % (0.0-0.8); Hematocrit 23.1 VOL% (42.0-52.0); Hemoglobin 7.3 GM/DL (14.0-18.0); Immature Granulocytes % 0.7 %; Immature Granulocytes Absolute 0.09 #; Lymphocytes # 1.1 10*3/uL (1.4-4.0); Lymphocytes % 8.4 % (21.2-54.2); Mean Corpuscular HGB Conc 31.6 GM/DL (32-36); Mean Corpuscular Volume 90.2 FL (87-102); Mean Platelet Volume 14.4 FL (9.6-12.0); Monocytes % 1.2 % (1.7-12.7); Neutrophils % 89.6 % (38.7-73.9); Platelet Count 133 T/CUMM (130-400); Red Blood Count 2.56 MC/CUMM (3.8-5.5); Red Cell Distribution Width 14.1 % (9.3-17.3)
[2019-07-11 05:17] LABS: Calcium 7.8 MG/DL (8.5-10.1); Osmolality,Calculated 302.4 MOS/KG (273-304)
[2019-07-11] MEDS ORDERED: AZITHROMYCIN 250 MG TABLET PO SCH (09:00)
[2019-07-11] MEDS: ASPIRIN EC 81 MG TABLET PO SCH (09:15)
[2019-07-11] MEDS: FUROSEMIDE 40 MG/4 ML VIAL IV SCH ×2 (09:15→17:35)
[2019-07-11] MEDS: FERROUS SULFATE 325 MG TABLET PO SCH (09:16)
[2019-07-11] MEDS: ISOSORBIDE MONONITRATE 60 MG TABLET PO SCH (09:17)
[2019-07-11] MEDS: carvediloL 25 MG TABLET PO SCH (09:17)
[2019-07-11] MEDS: ALLOPURINOL 100 MG TABLET PO SCH (09:17)
[2019-07-11] MEDS: PANTOPRAZOLE 40 MG TABLET PO SCH (09:17)
[2019-07-11] MEDS: SODIUM BICARBONATE 650 MG TABLET PO SCH (09:17)
[2019-07-11] MEDS: FLUTICASONE 50 MCG NASAL SPRAY 16 GM BOTTLE BOTH NARES SCH (09:18)
[2019-07-11] MEDS: metOLazone 2.5 MG TABLET PO SCH (09:18)
[2019-07-11] MEDS ORDERED: SODIUM CHLORIDE 0.9% 1,000 ML IV PRN (11:46)
[2019-07-11] MEDS: cefTRIAXone 1,000 MG in SYRINGE 1 EACH IV SCH (14:07)
[2019-07-11] MEDS: methylPREDNISolone SOD SUC 40 MG/1 ML VIAL IV SCH (14:07)
[2019-07-11 17:47] VITALS: BP 154/86
[2019-07-11 18:34] LABS: Hematocrit 28.5 VOL% (42.0-52.0)
== END 2019-07-11 19:15 | disposition home health service (06) | DRG 291 ==
LOC: N.ED 07:11 → N.EDINP 10:25 → N.5E 10:55
PROVIDERS: ADMIT Internal Medicine; ATTEND Internal Medicine

== ENCOUNTER 2019-07-25 07:57 | Inpatient (IN) ==
[2019-07-25] MEDS ORDERED: FUROSEMIDE 40 MG/4 ML VIAL IV STA (08:30)
[2019-07-25 08:52] LABS: Basophils % 0.2 % (0.0-0.8); Eosinophils # 0.1 10*3/uL (0.0-0.87); Eosinophils % 1.1 % (0.00-10.9); Hematocrit 26.6 VOL% (42.0-52.0); Hemoglobin 8.3 GM/DL (14.0-18.0); Immature Granulocytes % 0.7 %; Immature Granulocytes Absolute 0.08 #; Lymphocytes # 2.2 10*3/uL (1.4-4.0); Lymphocytes % 19.4 % (21.2-54.2); Mean Corpuscular HGB Conc 31.2 GM/DL (32-36); Mean Corpuscular Volume 91.1 FL (87-102); Mean Platelet Volume 13.8 FL (9.6-12.0); Monocytes % 11.6 % (1.7-12.7); Platelet Count 102 T/CUMM (130-400); Red Blood Count 2.92 MC/CUMM (3.8-5.5); Red Cell Distribution Width 14.4 % (9.3-17.3); White Blood Count 11.6 T/CUMM (4-12)
[2019-07-25 09:16] LABS: Albumin 3.1 G/DL (3.4-5.0); Bilirubin,Total 0.7 MG/DL (0.2-1.0); Calcium 7.7 MG/DL (8.5-10.1); Osmolality,Calculated 312.6 MOS/KG (273-304); Total Protein 6.1 G/DL (6.4-8.3)
[2019-07-25 09:32] LABS: Apearance,Urine CLEAR (Clear); Bilirubin,Urine Negative (Negative); Blood, Urine Negative (Negative); Glucose,Urine (UA) Negative (Negative); Ketones,Urine Negative (Negative); Nitrite,Urine Negative (Negative); Protein,Urine Negative; RBC,Urine 1 /HPF (0-4); Squamous Epithelial Cell,Urine Occasional /HPF (0-10); Urine Color Straw (Yellow); Urine Urobilinogen < 2.0 EU/DL (0.2-1.0); WBC,Urine <1 /HPF (0-6)
[2019-07-25] MEDS ORDERED: NITROGLYCERIN SL 0.4 MG TABLET SL PRN (11:41)
[2019-07-25] MEDS ORDERED: LABETALOL 100 MG/20 ML VIAL IV STA (11:43)
[2019-07-25] MEDS ORDERED: DEXTROSE 50% 25 GM/50 ML VIAL IV PRN (11:51)
[2019-07-25] MEDS ORDERED: ONDANSETRON 4 MG/2 ML VIAL IV PRN (11:51)
[2019-07-25] MEDS ORDERED: ACETAMINOPHEN 325 MG TABLET PO PRN ×2 (11:51→13:09)
[2019-07-25] MEDS ORDERED: GLUCAGON 1 MG VIAL IM PRN (11:51)
[2019-07-25 12:30] LABS: Risk Ratio 4.7; Thyroid Stimulating Hormone 3.22 uIU/ml (0.358-3.74); VLDL CHOLESTEROL 16.4 MG/DL
[2019-07-25] MEDS ORDERED: MAGNESIUM HYDROXIDE SUSP 30 ML UDCUP PO PRN (13:09)
[2019-07-25] MEDS ORDERED: POLYETHYLENE GLYCOL POWDER 17 GM PACK PO PRN (13:09)
[2019-07-25] MEDS: SODIUM BICARBONATE 650 MG TABLET PO SCH ×2 (13:42→21:56)
[2019-07-25] MEDS ORDERED: LABETALOL 100 MG/20 ML VIAL IV PRN (15:35)
[2019-07-25] MEDS ORDERED: LABETALOL 100 MG/20 ML VIAL IV ONE (15:35)
[2019-07-25] MEDS: INSULIN LISPRO 100 UNIT/ML SUBCUT SCH ×2 (16:36→22:09)
[2019-07-25] MEDS ORDERED: carvediloL 25 MG TABLET PO SCH (21:00)
[2019-07-25] MEDS: DOXAZOSIN 1 MG TABLET PO SCH (21:56)
[2019-07-25] MEDS: DOCUSATE SODIUM 100 MG CAPSULE PO SCH (21:56)
[2019-07-25] MEDS: FUROSEMIDE 40 MG/4 ML VIAL IV SCH (22:00)
[2019-07-25] MEDS: carvediloL 25 MG TABLET PO SCH (22:00)
[2019-07-25] MEDS: ENOXAPARIN 30 MG/0.3 ML SYRINGE SUBCUT SCH (22:05)
[2019-07-25] MEDS: ATORVASTATIN 40 MG TABLET PO SCH (22:07)
[2019-07-26 05:39] LABS: Basophils % 0.3 % (0.0-0.8); Eosinophils # 0.2 10*3/uL (0.0-0.87); Eosinophils % 1.4 % (0.00-10.9); Hematocrit 25.2 VOL% (42.0-52.0); Immature Granulocytes % 0.7 %; Immature Granulocytes Absolute 0.08 #; Lymphocytes # 2.3 10*3/uL (1.4-4.0); Lymphocytes % 20.1 % (21.2-54.2); Mean Corpuscular HGB Conc 31.7 GM/DL (32-36); Mean Platelet Volume 14.5 FL (9.6-12.0); Monocytes % 11.9 % (1.7-12.7); Neutrophils % 65.6 % (38.7-73.9); Platelet Count 90 T/CUMM (130-400); Red Blood Count 2.77 MC/CUMM (3.8-5.5); Red Cell Distribution Width 14.3 % (9.3-17.3); White Blood Count 11.7 T/CUMM (4-12)
[2019-07-26 05:59] LABS: Eosinophils 2 % (0-10); Lymphocytes 23 % (20-55); Myelocytes 1 %; Segmented Neutrophils 63 % (50-85); Total Cells Counted 100
[2019-07-26 06:00] LABS: Atypical Lymphocytes Few; Hypochromasia 1+; Microcytosis Slight
[2019-07-26 06:01] LABS: Howell-Jolly Bodies Slight; Platelet Estimate Decreased
[2019-07-26 06:04] LABS: Osmolality,Calculated 302.4 MOS/KG (273-304)
[2019-07-26 06:14] LABS: % Iron Saturation 9.7 % (18-50); Ferritin 608.3 ng/ml (26-388)
[2019-07-26 06:41] LABS: Sedimentation Rate-Westergren 76 MM/HR (0-20)
[2019-07-26] MEDS: INSULIN LISPRO 100 UNIT/ML SUBCUT SCH ×4 (08:32→21:41)
[2019-07-26] MEDS: FLUTICASONE 50 MCG NASAL SPRAY 16 GM BOTTLE BOTH NARES SCH (09:41)
[2019-07-26] MEDS: FUROSEMIDE 40 MG/4 ML VIAL IV SCH ×2 (09:42→16:20)
[2019-07-26] MEDS: ISOSORBIDE MONONITRATE 60 MG TABLET PO SCH (09:45)
[2019-07-26] MEDS: PANTOPRAZOLE 40 MG TABLET PO SCH (09:45)
[2019-07-26] MEDS: DOCUSATE SODIUM 100 MG CAPSULE PO SCH ×2 (09:45→21:45)
[2019-07-26] MEDS: DOXAZOSIN 1 MG TABLET PO SCH (09:46)
[2019-07-26] MEDS: FERROUS SULFATE 325 MG TABLET PO SCH (09:46)
[2019-07-26] MEDS: ASPIRIN EC 81 MG TABLET PO SCH (09:46)
[2019-07-26] MEDS: carvediloL 25 MG TABLET PO SCH ×2 (09:46→21:45)
[2019-07-26] MEDS: SODIUM BICARBONATE 650 MG TABLET PO SCH ×2 (09:46→21:45)
[2019-07-26] MEDS: ALLOPURINOL 100 MG TABLET PO SCH (09:47)
[2019-07-26] MEDS: metOLazone 5 MG TABLET PO SCH (09:47)
[2019-07-26] MEDS ORDERED: VANCOMYCIN INJ 1,000 MG in SODIUM CHLORIDE 0.9% 250 ML IV SCH (10:00)
[2019-07-26] MEDS ORDERED: VANCOMYCIN INJ 1,500 MG in SODIUM CHLORIDE 0.9% 500 ML IV ONE ×2 (10:30→18:00)
[2019-07-26] MEDS ORDERED: DOXAZOSIN 4 MG TABLET PO ONE (10:56)
[2019-07-26] MEDS: DOXAZOSIN 4 MG TABLET PO SCH ×2 (11:40→21:45)
[2019-07-26 12:57] LABS: Folate 7.3 NG/ML (5.4-24.0)
[2019-07-26 13:03] LABS: Vitamin B12 346 PG/ML (211-911)
[2019-07-26 13:42] LABS: Troponin I 0.064 NG/ML (0.00-0.045)
[2019-07-26] MEDS: ATORVASTATIN 40 MG TABLET PO SCH (21:45)
[2019-07-26] MEDS: ENOXAPARIN 30 MG/0.3 ML SYRINGE SUBCUT SCH (21:46)
[2019-07-27 05:16] LABS: Basophils % 0.3 % (0.0-0.8); Eosinophils # 0.3 10*3/uL (0.0-0.87); Eosinophils % 2.4 % (0.00-10.9); Hematocrit 24.8 VOL% (42.0-52.0); Hemoglobin 7.9 GM/DL (14.0-18.0); Immature Granulocytes % 0.5 %; Immature Granulocytes Absolute 0.05 #; Lymphocytes # 2.6 10*3/uL (1.4-4.0); Lymphocytes % 23.2 % (21.2-54.2); Mean Corpuscular HGB Conc 31.9 GM/DL (32-36); Mean Corpuscular Volume 89.9 FL (87-102); Mean Platelet Volume 14.7 FL (9.6-12.0); Monocytes % 12.1 % (1.7-12.7); Neutrophils % 61.5 % (38.7-73.9); Platelet Count 90 T/CUMM (130-400); Red Blood Count 2.76 MC/CUMM (3.8-5.5); Red Cell Distribution Width 14.3 % (9.3-17.3); White Blood Count 11.1 T/CUMM (4-12)
[2019-07-27 05:36] LABS: Calcium 7.6 MG/DL (8.5-10.1); Osmolality,Calculated 304.1 MOS/KG (273-304)
[2019-07-27 06:14] LABS: Eosinophils 3 % (0-10); Lymphocytes 21 % (20-55); Platelet Estimate Decreased; Segmented Neutrophils 70 % (50-85); Total Cells Counted 100
[2019-07-27 06:15] LABS: Target Cells 3+; Tear Drop Cells Few
[2019-07-27 06:16] LABS: Hypochromasia 1+; Microcytosis 2+; Ovalocytes Slight
[2019-07-27 08:48] LABS: Hemoglobin A1 (Alkaline) 97.8 % (96.5-98.5); Hemoglobin A2 (Alkaline) 2.2 % (1.5-3.5)
[2019-07-27] MEDS ORDERED: VANCOMYCIN INJ 1,250 MG in SODIUM CHLORIDE 0.9% 250 ML IV PRN (09:00)
[2019-07-27] MEDS: INSULIN LISPRO 100 UNIT/ML SUBCUT SCH ×4 (09:32→20:57)
[2019-07-27] MEDS: metOLazone 5 MG TABLET PO SCH (09:39)
[2019-07-27] MEDS: DOXAZOSIN 4 MG TABLET PO SCH ×2 (09:39→21:01)
[2019-07-27] MEDS: ISOSORBIDE MONONITRATE 60 MG TABLET PO SCH (09:39)
[2019-07-27] MEDS: FERROUS SULFATE 325 MG TABLET PO SCH (09:40)
[2019-07-27] MEDS: PANTOPRAZOLE 40 MG TABLET PO SCH (09:40)
[2019-07-27] MEDS: ALLOPURINOL 100 MG TABLET PO SCH (09:40)
[2019-07-27] MEDS: carvediloL 25 MG TABLET PO SCH ×2 (09:40→20:56)
[2019-07-27] MEDS: DOCUSATE SODIUM 100 MG CAPSULE PO SCH ×2 (09:40→20:56)
[2019-07-27] MEDS: ASPIRIN EC 81 MG TABLET PO SCH (09:40)
[2019-07-27] MEDS: SODIUM BICARBONATE 650 MG TABLET PO SCH ×2 (09:40→20:56)
[2019-07-27] MEDS: FUROSEMIDE 40 MG/4 ML VIAL IV SCH ×2 (09:41→16:05)
[2019-07-27] MEDS: FLUTICASONE 50 MCG NASAL SPRAY 16 GM BOTTLE BOTH NARES SCH (09:41)
[2019-07-27] MEDS ORDERED: VANCOMYCIN INJ 1,250 MG in SODIUM CHLORIDE 0.9% 250 ML IV ONE (18:00)
[2019-07-27] MEDS: ENOXAPARIN 30 MG/0.3 ML SYRINGE SUBCUT SCH (20:56)
[2019-07-28 05:53] LABS: Basophils # 0.1 10*3/uL (0.0-0.2); Basophils % 0.4 % (0.0-0.8); Eosinophils # 0.2 10*3/uL (0.0-0.87); Eosinophils % 1.8 % (0.00-10.9); Hematocrit 24.3 VOL% (42.0-52.0); Hemoglobin 7.7 GM/DL (14.0-18.0); Immature Granulocytes % 0.6 %; Immature Granulocytes Absolute 0.08 #; Lymphocytes # 2.6 10*3/uL (1.4-4.0); Lymphocytes % 20.5 % (21.2-54.2); Mean Corpuscular HGB Conc 31.7 GM/DL (32-36); Mean Platelet Volume 14.5 FL (9.6-12.0); Monocytes % 10.6 % (1.7-12.7); Neutrophils % 66.1 % (38.7-73.9); Platelet Count 99 T/CUMM (130-400); Red Blood Count 2.73 MC/CUMM (3.8-5.5); White Blood Count 12.8 T/CUMM (4-12)
[2019-07-28 06:00] LABS: Calcium 7.7 MG/DL (8.5-10.1); Osmolality,Calculated 300.5 MOS/KG (273-304)
[2019-07-28 06:52] LABS: Hypochromasia 1+
[2019-07-28 06:53] LABS: Microcytosis 1+; Ovalocytes Slight
[2019-07-28 06:54] LABS: Platelet Estimate Decreased
[2019-07-28] MEDS: INSULIN LISPRO 100 UNIT/ML SUBCUT SCH ×4 (08:14→20:41)
[2019-07-28] MEDS: carvediloL 25 MG TABLET PO SCH ×2 (08:58→20:41)
[2019-07-28] MEDS: SODIUM BICARBONATE 650 MG TABLET PO SCH ×2 (08:58→20:41)
[2019-07-28] MEDS: metOLazone 5 MG TABLET PO SCH (08:58)
[2019-07-28] MEDS: DOXAZOSIN 4 MG TABLET PO SCH ×2 (08:58→20:41)
[2019-07-28] MEDS: ISOSORBIDE MONONITRATE 60 MG TABLET PO SCH (08:59)
[2019-07-28] MEDS: CALCITRIOL 0.25 MCG CAPSULE PO SCH (08:59)
[2019-07-28] MEDS: DOCUSATE SODIUM 100 MG CAPSULE PO SCH ×2 (08:59→20:41)
[2019-07-28] MEDS: PANTOPRAZOLE 40 MG TABLET PO SCH (08:59)
[2019-07-28] MEDS: ASPIRIN EC 81 MG TABLET PO SCH (08:59)
[2019-07-28] MEDS: ALLOPURINOL 100 MG TABLET PO SCH (08:59)
[2019-07-28] MEDS: FERROUS SULFATE 325 MG TABLET PO SCH (08:59)
[2019-07-28] MEDS: FLUTICASONE 50 MCG NASAL SPRAY 16 GM BOTTLE BOTH NARES SCH (09:02)
[2019-07-28] MEDS: FUROSEMIDE 40 MG/4 ML VIAL IV SCH ×2 (09:03→15:19)
[2019-07-28] MEDS ORDERED: predniSONE 10 MG TABLET ONE (11:54)
[2019-07-28] MEDS: predniSONE 20 MG TABLET PO SCH (12:00)
[2019-07-28] MEDS: ENOXAPARIN 30 MG/0.3 ML SYRINGE SUBCUT SCH (20:41)
[2019-07-29] MEDS: CALCITRIOL 0.25 MCG CAPSULE PO SCH (10:08)
[2019-07-29] MEDS: DOXAZOSIN 4 MG TABLET PO SCH (10:08)
[2019-07-29] MEDS: metOLazone 5 MG TABLET PO SCH (10:08)
[2019-07-29] MEDS: SODIUM BICARBONATE 650 MG TABLET PO SCH (10:08)
[2019-07-29] MEDS: ASPIRIN EC 81 MG TABLET PO SCH (10:08)
[2019-07-29] MEDS: predniSONE 20 MG TABLET PO SCH (10:09)
[2019-07-29] MEDS: DOCUSATE SODIUM 100 MG CAPSULE PO SCH (10:09)
[2019-07-29] MEDS: carvediloL 25 MG TABLET PO SCH (10:09)
[2019-07-29] MEDS: FUROSEMIDE 40 MG/4 ML VIAL IV SCH ×2 (10:09→15:28)
[2019-07-29] MEDS: ISOSORBIDE MONONITRATE 60 MG TABLET PO SCH (10:09)
[2019-07-29] MEDS: PANTOPRAZOLE 40 MG TABLET PO SCH (10:09)
[2019-07-29] MEDS: FERROUS SULFATE 325 MG TABLET PO SCH (10:09)
[2019-07-29] MEDS: FLUTICASONE 50 MCG NASAL SPRAY 16 GM BOTTLE BOTH NARES SCH (10:16)
[2019-07-29] MEDS: INSULIN LISPRO 100 UNIT/ML SUBCUT SCH ×2 (10:22→12:12)
[2019-07-29 14:50] VITALS: BP 154/70
== END 2019-07-29 17:30 | disposition home health service (06) | DRG 291 ==
LOC: N.EDINP 07:57 → N.ED 07:57 → OBSVTOIN 11:07 → N.2W 11:33 → N.TELEN 07-26 13:30
PROVIDERS: ADMIT Hospitalist; ATTEND Hospitalist

== ENCOUNTER 2019-09-13 03:27 | Inpatient (IN) ==
[2019-09-13] MEDS ORDERED: ONDANSETRON 4 MG/2 ML VIAL IV STA (03:46)
[2019-09-13] MEDS ORDERED: ALUM/MAG/SIMETH/LIDO VISC 1:1 30 ML BOTTLE PO STA (03:49)
[2019-09-13 04:13] LABS: Basophils # 0.1 10*3/uL (0.0-0.2); Basophils % 0.6 % (0.0-0.8); Eosinophils # 0.4 10*3/uL (0.0-0.87); Eosinophils % 4.9 % (0.00-10.9); Hematocrit 21.2 VOL% (42.0-52.0); Hemoglobin 6.5 GM/DL (14.0-18.0); Immature Granulocytes % 0.8 %; Immature Granulocytes Absolute 0.06 #; Lymphocytes # 2.5 10*3/uL (1.4-4.0); Mean Corpuscular HGB Conc 30.7 GM/DL (32-36); Mean Corpuscular Volume 91.4 FL (87-102); Mean Platelet Volume 11.7 FL (9.6-12.0); Monocytes % 11.2 % (1.7-12.7); Neutrophils % 50.5 % (38.7-73.9); Platelet Count 151 T/CUMM (130-400); Red Blood Count 2.32 MC/CUMM (3.8-5.5); Red Cell Distribution Width 14.9 % (9.3-17.3); White Blood Count 7.8 T/CUMM (4-12)
[2019-09-13 04:29] LABS: Alanine Aminotransferase < 9 U/L (16-61); Albumin 2.4 G/DL (3.4-5.0); Alkaline Phosphatase 65 U/L (45-117); Amylase 74 U/L (25-115); Aspartate Amino Transferase 17 U/L (0-37); Blood Urea Nitrogen 85 MG/DL (7-18); Calcium 6.9 MG/DL (8.5-10.1); Estimated Glom Filtration Rate 24 ML/MIN; Glucose 72 MG/DL (74-106); Osmolality,Calculated 301.5 MOS/KG (273-304); Total Protein 5.1 G/DL (6.4-8.3)
[2019-09-13] MEDS ORDERED: POTASSIUM CHLORIDE 20 MEQ TABLET PO STA (04:43)
[2019-09-13 05:09] LABS: INR 1.1
[2019-09-13] MEDS ORDERED: SODIUM CHLORIDE 0.9% 1,000 ML IV PRN (05:09)
[2019-09-13] MEDS ORDERED: ONDANSETRON 4 MG/2 ML VIAL IV PRN (05:09)
[2019-09-13] MEDS ORDERED: MAGNESIUM HYDROXIDE SUSP 30 ML UDCUP PO PRN (08:11)
[2019-09-13] MEDS ORDERED: ACETAMINOPHEN 325 MG TABLET PO PRN (08:11)
[2019-09-13] MEDS ORDERED: POLYETHYLENE GLYCOL POWDER 17 GM PACK PO PRN (08:11)
[2019-09-13] MEDS ORDERED: NITROGLYCERIN SL 0.4 MG TABLET SL PRN (08:11)
[2019-09-13] MEDS ORDERED: PANTOPRAZOLE 40 MG VIAL IV SCH (09:00)
[2019-09-13] MEDS ORDERED: PANTOPRAZOLE 40 MG TABLET PO SCH (09:00)
[2019-09-13] MEDS ORDERED: tiZANidine 4 MG TABLET PO PRN (09:00)
[2019-09-13] MEDS ORDERED: amLODIPine 2.5 MG TABLET PO SCH (09:00)
[2019-09-13] MEDS: calcitrioL 0.25 MCG CAPSULE PO SCH (09:20)
[2019-09-13] MEDS: carvediloL 25 MG TABLET PO SCH ×2 (09:20→20:25)
[2019-09-13] MEDS: ASPIRIN EC 81 MG TABLET PO SCH (09:20)
[2019-09-13] MEDS: SODIUM BICARBONATE 650 MG TABLET PO SCH ×2 (09:20→20:25)
[2019-09-13] MEDS: ISOSORBIDE MONONITRATE 60 MG TABLET PO SCH (09:20)
[2019-09-13] MEDS: metOLazone 5 MG TABLET PO SCH (09:20)
[2019-09-13] MEDS: FERROUS SULFATE 325 MG TABLET PO SCH (09:21)
[2019-09-13] MEDS: FLUTICASONE 50 MCG NASAL SPRAY 16 GM BOTTLE BOTH NARES SCH (09:21)
[2019-09-13] MEDS: allopurinoL 100 MG TABLET PO SCH (09:21)
[2019-09-13] MEDS: PANTOPRAZOLE 40 MG VIAL IV SCH ×2 (09:22→20:25)
[2019-09-13 19:51] LABS: Hematocrit 28.6 VOL% (42.0-52.0); Hemoglobin 9.2 GM/DL (14.0-18.0)
[2019-09-13] MEDS ORDERED: ATORVASTATIN 40 MG TABLET PO SCH (21:00)
[2019-09-14 05:48] LABS: Basophils # 0.1 10*3/uL (0.0-0.2); Basophils % 1.2 % (0.0-0.8); Eosinophils # 0.6 10*3/uL (0.0-0.87); Eosinophils % 7.5 % (0.00-10.9); Hematocrit 33.4 VOL% (42.0-52.0); Hemoglobin 10.6 GM/DL (14.0-18.0); Immature Granulocytes % 0.7 %; Immature Granulocytes Absolute 0.05 #; Lymphocytes # 2.9 10*3/uL (1.4-4.0); Lymphocytes % 39.2 % (21.2-54.2); Mean Corpuscular HGB Conc 31.7 GM/DL (32-36); Mean Corpuscular Volume 89.1 FL (87-102); Mean Platelet Volume 11.9 FL (9.6-12.0); Monocytes % 11.2 % (1.7-12.7); Neutrophils % 40.2 % (38.7-73.9); Platelet Count 179 T/CUMM (130-400); Red Blood Count 3.75 MC/CUMM (3.8-5.5); Red Cell Distribution Width 14.9 % (9.3-17.3); White Blood Count 7.4 T/CUMM (4-12)
[2019-09-14 06:10] LABS: Albumin 2.5 G/DL (3.4-5.0); Bilirubin,Total 1.7 MG/DL (0.2-1.0); Calcium 8.6 MG/DL (8.5-10.1); Total Protein 6.1 G/DL (6.4-8.3)
[2019-09-14 06:22] LABS: Calcium 8.6 MG/DL (8.5-10.1); Osmolality,Calculated 299.8 MOS/KG (273-304)
[2019-09-14] MEDS ORDERED: SODIUM CHLORIDE 0.9% 1,000 ML IV SCH (07:00)
[2019-09-14] MEDS ORDERED: LIDOCAINE 2% 5 ML VIAL ONE (09:00)
[2019-09-14] MEDS ORDERED: propofoL 200 MG/20 ML VIAL IV ONE (09:00)
[2019-09-14] MEDS: calcitrioL 0.25 MCG CAPSULE PO SCH (10:40)
[2019-09-14] MEDS: carvediloL 25 MG TABLET PO SCH (10:40)
[2019-09-14] MEDS: metOLazone 5 MG TABLET PO SCH (10:41)
[2019-09-14] MEDS: FERROUS SULFATE 325 MG TABLET PO SCH (10:41)
[2019-09-14] MEDS: ISOSORBIDE MONONITRATE 60 MG TABLET PO SCH (10:41)
[2019-09-14] MEDS: ASPIRIN EC 81 MG TABLET PO SCH (10:41)
[2019-09-14] MEDS: allopurinoL 100 MG TABLET PO SCH (10:41)
[2019-09-14] MEDS: SODIUM BICARBONATE 650 MG TABLET PO SCH (10:41)
[2019-09-14] MEDS: PANTOPRAZOLE 40 MG VIAL IV SCH (10:42)
[2019-09-14] MEDS: FLUTICASONE 50 MCG NASAL SPRAY 16 GM BOTTLE BOTH NARES SCH (10:42)
[2019-09-14 15:48] VITALS: BP 146/60
== END 2019-09-14 15:05 | disposition home or self-care (01) | DRG 378 ==
LOC: EDUNIT# → EDBD → N.ED 03:27 → N.EDINP 05:09 → SUATTDRO 05:09 → N.5E 05:47
PROVIDERS: ADMIT Internal Medicine; ATTEND Internal Medicine

== ENCOUNTER 2020-07-22 05:35 | Observation (INO) ==
[2020-07-22 06:27] LABS: Basophils % 0.2 % (0.0-0.8); Eosinophils # 0.1 10*3/uL (0.0-0.87); Eosinophils % 0.7 % (0.00-10.9); Hematocrit 22.3 VOL% (42.0-52.0); Hemoglobin 7.1 GM/DL (14.0-18.0); Immature Granulocytes % 2.2 %; Immature Granulocytes Absolute 0.21 #; Lymphocytes % 20.5 % (21.2-54.2); Mean Corpuscular HGB Conc 31.8 GM/DL (32-36); Mean Corpuscular Volume 88.1 FL (87-102); Mean Platelet Volume 12.6 FL (9.6-12.0); Monocytes % 10.4 % (1.7-12.7); NRBC # 0.02 10*3/uL; Platelet Count 296 T/CUMM (130-400); Red Blood Count 2.53 MC/CUMM (3.8-5.5); White Blood Count 9.6 T/CUMM (4-12)
[2020-07-22 06:46] LABS: Albumin 2.8 G/DL (3.4-5.0); Bilirubin,Total 0.4 MG/DL (0.2-1.0); Calcium 8.3 MG/DL (8.5-10.1); Osmolality,Calculated 322.7 MOS/KG (273-304); Total Protein 6.9 G/DL (6.4-8.3)
[2020-07-22 07:44] LABS: Bilirubin,Urine Negative (Negative); Blood, Urine Negative (Negative); Glucose,Urine (UA) Negative (Negative); Ketones,Urine Negative (Negative); Nitrite,Urine Negative (Negative); Protein,Urine Negative; RBC,Urine 1 /HPF (0-4); Urine Appearance CLEAR (Clear); Urine Color Yellow (Yellow); Urine Specific Gravity 1.011 (1.001-1.035); Urine Urobilinogen < 2.0 EU/DL (0.2-1.0); WBC,Urine 1 /HPF (0-6)
[2020-07-22] MEDS ORDERED: ACETAMINOPHEN 325 MG TABLET PO PRN (09:33)
[2020-07-22] MEDS ORDERED: DOCUSATE SODIUM 100 MG CAPSULE PO PRN (09:33)
[2020-07-22] MEDS ORDERED: ONDANSETRON 4 MG/2 ML VIAL IV PRN (09:33)
[2020-07-22] MEDS ORDERED: GLUCAGON 1 MG VIAL IM PRN (09:33)
[2020-07-22] MEDS ORDERED: DEXTROSE 50% 25 GM/50 ML VIAL IV PRN (09:33)
[2020-07-22] MEDS ORDERED: BISACODYL 5 MG TABLET PO PRN (09:33)
[2020-07-22] MEDS ORDERED: ALBUTEROL/IPRATROPIUM 3 ML NEB RESP TX SCH (12:00)
[2020-07-22] MEDS ORDERED: FUROSEMIDE 40 MG/4 ML VIAL IV STA (12:21)
[2020-07-22] MEDS ORDERED: SODIUM CHLORIDE 0.9% 1,000 ML IV PRN (12:31)
[2020-07-22] MEDS: FUROSEMIDE 20 MG/2 ML VIAL IV SCH (16:13)
[2020-07-22] MEDS ORDERED: FUROSEMIDE 40 MG/4 ML VIAL IV ONE (19:40)
[2020-07-22] MEDS ORDERED: methylPREDNISolone SOD SUC 125 MG/2 ML VIAL IV STA (19:54)
[2020-07-22] MEDS: hydrALAZINE 20 MG/1 ML VIAL IV PRN (20:20)
[2020-07-22] MEDS ORDERED: MORPHINE 4 MG/1 ML VIAL IV ONE (20:39)
[2020-07-22 20:50] LABS: Bilirubin,Urine Negative (Negative); Blood, Urine Negative (Negative); Glucose,Urine (UA) Negative (Negative); Ketones,Urine Negative (Negative); Mucus,Urine Occasional /LPF (Occasional); Nitrite,Urine Negative (Negative); Protein,Urine Negative; RBC,Urine 1 /HPF (0-4); Squamous Epithelial Cell,Urine Occasional /HPF (0-10); Urine Appearance CLEAR (Clear); Urine Color Straw (Yellow); Urine Specific Gravity 1.008 (1.001-1.035); Urine Urobilinogen < 2.0 EU/DL (0.2-1.0); WBC,Urine 1 /HPF (0-6)
[2020-07-22] MEDS: carvediloL 12.5 MG TABLET PO SCH (23:37)
[2020-07-23] MEDS: hydrALAZINE 20 MG/1 ML VIAL IV PRN (02:12)
[2020-07-23 04:15] LABS: Albumin 2.8 G/DL (3.4-5.0); Bilirubin,Total 0.7 MG/DL (0.2-1.0); Calcium 8.2 MG/DL (8.5-10.1); Risk Ratio 3.79; Thyroid Stimulating Hormone 2.08 uIU/ml (0.358-3.74); Total Protein 7.2 G/DL (6.4-8.3); VLDL CHOLESTEROL 22.6 MG/DL
[2020-07-23 04:27] LABS: Basophils % 0.2 % (0.0-0.8); Hematocrit 27.6 VOL% (42.0-52.0); Immature Granulocytes Absolute 0.22 #; Lymphocytes # 0.5 10*3/uL (1.4-4.0); Lymphocytes % 4.1 % (21.2-54.2); Mean Corpuscular HGB Conc 31.5 GM/DL (32-36); Mean Corpuscular Volume 88.5 FL (87-102); Mean Platelet Volume 13.1 FL (9.6-12.0); Monocytes % 0.9 % (1.7-12.7); NRBC # 0.03 10*3/uL; Neutrophils % 92.8 % (38.7-73.9); Platelet Count 328 T/CUMM (130-400); Red Cell Distribution Width 15.9 % (9.3-17.3); White Blood Count 11.3 T/CUMM (4-12)
[2020-07-23 04:41] LABS: Red Blood Count 3.12 MC/CUMM (3.8-5.5)
[2020-07-23 04:42] LABS: Hemoglobin 8.7 GM/DL (14.0-18.0)
[2020-07-23 04:47] LABS: Hypochromasia 1+; Lymphocytes 8 % (20-55); Nucleated Red Blood Cells 1 (0-5); Ovalocytes Slight; Platelet Estimate Adequate; Segmented Neutrophils 90 % (50-85); Total Cells Counted 100
[2020-07-23] MEDS: PANTOPRAZOLE 40 MG TABLET PO SCH (08:48)
[2020-07-23] MEDS: carvediloL 12.5 MG TABLET PO SCH ×2 (08:48→16:00)
[2020-07-23] MEDS: FUROSEMIDE 20 MG/2 ML VIAL IV SCH ×3 (08:49→17:10)
[2020-07-23] MEDS: ISOSORBIDE MONONITRATE 60 MG TABLET PO SCH (12:30)
[2020-07-23] MEDS: FUROSEMIDE 40 MG/4 ML VIAL IV SCH (16:30)
[2020-07-23] MEDS: CIPROFLOXACIN/DEXAMETHASONE OTIC SUSP 7.5 ML BOTTLE RIGHT EAR SCH (22:39)
[2020-07-24 04:31] LABS: Basophils % 0.1 % (0.0-0.8); Hematocrit 21.8 VOL% (42.0-52.0); Hemoglobin 7.1 GM/DL (14.0-18.0); Immature Granulocytes % 1.1 %; Immature Granulocytes Absolute 0.19 #; Lymphocytes # 1.3 10*3/uL (1.4-4.0); Lymphocytes % 7.6 % (21.2-54.2); Mean Corpuscular HGB Conc 32.6 GM/DL (32-36); Mean Corpuscular Volume 85.8 FL (87-102); Mean Platelet Volume 13.1 FL (9.6-12.0); Monocytes % 5.1 % (1.7-12.7); NRBC # 0.08 10*3/uL; Neutrophils % 86.1 % (38.7-73.9); Platelet Count 285 T/CUMM (130-400); Red Blood Count 2.54 MC/CUMM (3.8-5.5); Red Cell Distribution Width 15.9 % (9.3-17.3); White Blood Count 17.1 T/CUMM (4-12)
[2020-07-24 04:52] LABS: Hypochromasia 1+; Ovalocytes Slight; Platelet Estimate Adequate; Target Cells Few
[2020-07-24 04:53] LABS: Uric Acid 6.9 MG/DL (3.5-7.2)
[2020-07-24 04:56] LABS: Albumin 2.1 G/DL (3.4-5.0); Bilirubin,Total 0.5 MG/DL (0.2-1.0); Calcium 7.8 MG/DL (8.5-10.1); Osmolality,Calculated 316.4 MOS/KG (273-304); Total Protein 5.8 G/DL (6.4-8.3)
[2020-07-24] MEDS ORDERED: NITROGLYCERIN SL 0.4 MG TABLET SL PRN (09:24)
[2020-07-24] MEDS: PANTOPRAZOLE 40 MG TABLET PO SCH (09:45)
[2020-07-24] MEDS: ISOSORBIDE MONONITRATE 60 MG TABLET PO SCH (09:45)
[2020-07-24] MEDS: carvediloL 12.5 MG TABLET PO SCH ×2 (09:45→16:55)
[2020-07-24] MEDS: CIPROFLOXACIN/DEXAMETHASONE OTIC SUSP 7.5 ML BOTTLE RIGHT EAR SCH ×2 (09:46→21:20)
[2020-07-24] MEDS: FUROSEMIDE 40 MG/4 ML VIAL IV SCH ×2 (09:57→16:55)
[2020-07-24] MEDS: ASPIRIN EC 81 MG TABLET PO SCH (10:01)
[2020-07-24] MEDS: SODIUM BICARBONATE 650 MG TABLET PO SCH ×2 (10:02→21:16)
[2020-07-24] MEDS: allopurinoL 100 MG TABLET PO SCH (10:02)
[2020-07-24] MEDS: TAMSULOSIN 0.4 MG CAPSULE PO SCH (10:03)
[2020-07-24] MEDS ORDERED: SODIUM CHLORIDE 0.9% 1,000 ML IV PRN (11:01)
[2020-07-24] MEDS: metOLazone 5 MG TABLET PO SCH (12:00)
[2020-07-24 18:40] LABS: Hematocrit 25.3 VOL% (42.0-52.0); Hemoglobin 8.2 GM/DL (14.0-18.0)
[2020-07-24] MEDS ORDERED: ATORVASTATIN 40 MG TABLET PO SCH (21:00)
[2020-07-25 06:18] LABS: Basophils % 0.1 % (0.0-0.8); Eosinophils % 0.3 % (0.00-10.9); Hematocrit 25.2 VOL% (42.0-52.0); Hemoglobin 8.3 GM/DL (14.0-18.0); Immature Granulocytes % 1.5 %; Immature Granulocytes Absolute 0.22 #; Lymphocytes # 1.9 10*3/uL (1.4-4.0); Lymphocytes % 13.6 % (21.2-54.2); Mean Corpuscular HGB Conc 32.9 GM/DL (32-36); Monocytes % 8.3 % (1.7-12.7); NRBC # 0.05 10*3/uL; Neutrophils % 76.2 % (38.7-73.9); Platelet Count 298 T/CUMM (130-400); Red Blood Count 2.93 MC/CUMM (3.8-5.5); Red Cell Distribution Width 15.8 % (9.3-17.3); White Blood Count 14.3 T/CUMM (4-12)
[2020-07-25 06:39] LABS: Albumin 2.5 G/DL (3.4-5.0); Bilirubin,Total 0.9 MG/DL (0.2-1.0); Calcium 8.1 MG/DL (8.5-10.1); Osmolality,Calculated 314.4 MOS/KG (273-304); Total Protein 6.4 G/DL (6.4-8.3)
[2020-07-25] MEDS: SODIUM BICARBONATE 650 MG TABLET PO SCH (09:25)
[2020-07-25] MEDS: ISOSORBIDE MONONITRATE 60 MG TABLET PO SCH (09:25)
[2020-07-25] MEDS: metOLazone 5 MG TABLET PO SCH (09:25)
[2020-07-25] MEDS: TAMSULOSIN 0.4 MG CAPSULE PO SCH (09:25)
[2020-07-25] MEDS: ASPIRIN EC 81 MG TABLET PO SCH (09:25)
[2020-07-25] MEDS: PANTOPRAZOLE 40 MG TABLET PO SCH (09:25)
[2020-07-25] MEDS: FUROSEMIDE 40 MG/4 ML VIAL IV SCH (09:25)
[2020-07-25] MEDS: carvediloL 12.5 MG TABLET PO SCH (09:25)
[2020-07-25] MEDS: allopurinoL 100 MG TABLET PO SCH (09:25)
[2020-07-25] MEDS: CIPROFLOXACIN/DEXAMETHASONE OTIC SUSP 7.5 ML BOTTLE RIGHT EAR SCH (09:26)
[2020-07-25 12:09] VITALS: BP 152/54
== END 2020-07-25 14:38 | disposition home or self-care (01) ==
LOC: N.ED 05:35 → N.EDINP 05:35 → SUATTDRO 12:27 → N.3E 13:23 → N.ICU 20:10 → N.5E 07-24 11:47
PROVIDERS: ADMIT Internal Medicine; ATTEND Internal Medicine

== ENCOUNTER 2020-08-22 04:36 | Inpatient (IN) ==
[2020-08-22 08:32] LABS: Basophils # 0.1 10*3/uL (0.0-0.2); Basophils % 0.4 % (0.0-0.8); Eosinophils # 0.1 10*3/uL (0.0-0.87); Eosinophils % 0.7 % (0.00-10.9); Hematocrit 30.6 VOL% (42.0-52.0); Hemoglobin 9.5 GM/DL (14.0-18.0); Immature Granulocytes % 0.9 %; Immature Granulocytes Absolute 0.15 #; Lymphocytes # 3.6 10*3/uL (1.4-4.0); Lymphocytes % 21.9 % (21.2-54.2); Mean Corpuscular Volume 91.6 FL (87-102); Monocytes % 11.8 % (1.7-12.7); Neutrophils % 64.3 % (38.7-73.9); Platelet Count 141 T/CUMM (130-400); Red Blood Count 3.34 MC/CUMM (3.8-5.5); Red Cell Distribution Width 16.8 % (9.3-17.3); White Blood Count 16.3 T/CUMM (4-12)
[2020-08-22 08:57] LABS: Albumin 3.2 G/DL (3.4-5.0); Bilirubin,Total 0.5 MG/DL (0.2-1.0); Calcium 7.9 MG/DL (8.5-10.1); Total Protein 7.7 G/DL (6.4-8.3)
[2020-08-22] MEDS ORDERED: NITROGLYCERIN SL 0.4 MG TABLET SL PRN (10:34)
[2020-08-22] MEDS ORDERED: ALBUTEROL 2.5 MG/3 ML NEB RESP TX PRN (10:36)
[2020-08-22] MEDS ORDERED: FUROSEMIDE 40 MG/4 ML VIAL IV SCH (11:51)
[2020-08-22] MEDS ORDERED: NICOTINE 21 MG/24 HR PATCH TRANSDERM PRN (11:57)
[2020-08-22] MEDS ORDERED: MORPHINE 4 MG/1 ML VIAL IV PRN (11:57)
[2020-08-22] MEDS ORDERED: GLUCAGON 1 MG VIAL IM PRN (11:57)
[2020-08-22] MEDS ORDERED: BISACODYL 5 MG TABLET PO PRN (11:57)
[2020-08-22] MEDS ORDERED: guaiFENesin/DM ER 600-30 MG TABLET PO PRN (11:57)
[2020-08-22] MEDS ORDERED: ZALEPLON 5 MG CAPSULE PO PRN (11:57)
[2020-08-22] MEDS ORDERED: diphenhydrAMINE CAP 25 MG CAPSULE PO PRN (11:57)
[2020-08-22] MEDS ORDERED: hydrALAZINE 20 MG/1 ML VIAL IV PRN (11:57)
[2020-08-22] MEDS ORDERED: traZODone 50 MG TABLET PO PRN (11:57)
[2020-08-22] MEDS ORDERED: LACTULOSE 20 GM/30 ML UDCUP PO PRN (11:57)
[2020-08-22] MEDS ORDERED: ALUMINUM/MAGNES/SIMETH MAX STR 30 ML UDCUP PO PRN (11:57)
[2020-08-22] MEDS ORDERED: DOCUSATE SODIUM 100 MG CAPSULE PO PRN (11:57)
[2020-08-22] MEDS ORDERED: SIMETHICONE CHEW 125 MG TABLET PO PRN (11:57)
[2020-08-22] MEDS ORDERED: DEXTROSE 50% 25 GM/50 ML VIAL IV PRN (11:57)
[2020-08-22] MEDS ORDERED: ONDANSETRON 4 MG/2 ML VIAL IV PRN (11:57)
[2020-08-22] MEDS ORDERED: SODIUM PHOSPHATE ENEMA 133 ML BOTTLE RECTAL ONE (12:10)
[2020-08-22] MEDS ORDERED: MAGNESIUM CITRATE 300 ML BOTTLE PO ONE (12:10)
[2020-08-22] MEDS ORDERED: MAGNESIUM HYDROXIDE SUSP 30 ML UDCUP PO ONE (12:10)
[2020-08-22] MEDS: cefTRIAXone 1,000 MG in SYRINGE 1 EACH IV SCH (12:39)
[2020-08-22] MEDS: AZITHROMYCIN INJ 500 MG in SODIUM CHLORIDE 0.9% 250 ML IV SCH ×2 (12:48→15:46)
[2020-08-22] MEDS: HEPARIN 5,000 UNIT/1 ML VIAL SUBCUT SCH ×2 (14:18→20:48)
[2020-08-22] MEDS: ALBUTEROL/IPRATROPIUM 3 ML NEB RESP TX SCH ×2 (14:30→19:25)
[2020-08-22] MEDS ORDERED: FUROSEMIDE 80 MG TABLET PO SCH (16:00)
[2020-08-22] MEDS: FUROSEMIDE 40 MG/4 ML VIAL IV SCH ×2 (16:45→20:49)
[2020-08-22] MEDS: ATORVASTATIN 40 MG TABLET PO SCH (20:45)
[2020-08-22] MEDS: carvediloL 12.5 MG TABLET PO SCH (20:45)
[2020-08-22] MEDS: SODIUM BICARBONATE 650 MG TABLET PO SCH (20:45)
[2020-08-22] MEDS: CIPROFLOXACIN/DEXAMETHASONE OTIC SUSP 7.5 ML BOTTLE RIGHT EAR SCH (20:47)
[2020-08-23] MEDS: ALBUTEROL/IPRATROPIUM 3 ML NEB RESP TX SCH ×4 (00:05→19:26)
[2020-08-23] MEDS: ACETAMINOPHEN 325 MG TABLET PO PRN (00:54)
[2020-08-23 02:14] LABS: Basophils # 0.1 10*3/uL (0.0-0.2); Basophils % 0.5 % (0.0-0.8); Eosinophils # 0.1 10*3/uL (0.0-0.87); Eosinophils % 0.7 % (0.00-10.9); Hematocrit 25.1 VOL% (42.0-52.0); Hemoglobin 8.1 GM/DL (14.0-18.0); Immature Granulocytes % 1.1 %; Immature Granulocytes Absolute 0.16 #; Lymphocytes # 3.3 10*3/uL (1.4-4.0); Lymphocytes % 22.1 % (21.2-54.2); Mean Corpuscular HGB Conc 32.3 GM/DL (32-36); Mean Corpuscular Volume 89.3 FL (87-102); Mean Platelet Volume 12.5 FL (9.6-12.0); Monocytes % 12.2 % (1.7-12.7); Neutrophils % 63.4 % (38.7-73.9); Platelet Count 131 T/CUMM (130-400); Red Blood Count 2.81 MC/CUMM (3.8-5.5); Red Cell Distribution Width 16.5 % (9.3-17.3)
[2020-08-23 02:40] LABS: Calcium 7.8 MG/DL (8.5-10.1); Osmolality,Calculated 314.7 MOS/KG (273-304)
[2020-08-23] MEDS: HEPARIN 5,000 UNIT/1 ML VIAL SUBCUT SCH ×3 (04:28→20:50)
[2020-08-23] MEDS: LINACLOTIDE 145 MCG CAPSULE PO SCH (09:00)
[2020-08-23] MEDS: CIPROFLOXACIN/DEXAMETHASONE OTIC SUSP 7.5 ML BOTTLE RIGHT EAR SCH ×2 (09:00→20:49)
[2020-08-23] MEDS ORDERED: allopurinoL 100 MG TABLET PO SCH (09:00)
[2020-08-23] MEDS: metOLazone 5 MG TABLET PO SCH (09:01)
[2020-08-23] MEDS: SODIUM BICARBONATE 650 MG TABLET PO SCH ×2 (09:01→20:50)
[2020-08-23] MEDS: TAMSULOSIN 0.4 MG CAPSULE PO SCH (09:01)
[2020-08-23] MEDS: allopurinoL 100 MG TABLET PO SCH ×2 (09:02→20:49)
[2020-08-23] MEDS: ASPIRIN EC 81 MG TABLET PO SCH (09:02)
[2020-08-23] MEDS: carvediloL 12.5 MG TABLET PO SCH ×2 (09:02→20:49)
[2020-08-23] MEDS: ISOSORBIDE MONONITRATE 60 MG TABLET PO SCH (09:04)
[2020-08-23] MEDS: FUROSEMIDE 40 MG/4 ML VIAL IV SCH ×2 (09:27→17:13)
[2020-08-23] MEDS: cefTRIAXone 1,000 MG in SYRINGE 1 EACH IV SCH (11:57)
[2020-08-23] MEDS: AZITHROMYCIN INJ 500 MG in SODIUM CHLORIDE 0.9% 250 ML IV SCH (12:34)
[2020-08-23 15:36] LABS: Bilirubin,Urine Negative (Negative); Blood, Urine Negative (Negative); Glucose,Urine (UA) Negative (Negative); Ketones,Urine Negative (Negative); Nitrite,Urine Negative (Negative); Protein,Urine Negative; RBC,Urine <1 /HPF (0-4); Urine Appearance CLEAR (Clear); Urine Color Yellow (Yellow); Urine Specific Gravity 1.009 (1.001-1.035); Urine Urobilinogen < 2.0 EU/DL (0.2-1.0); WBC,Urine <1 /HPF (0-6)
[2020-08-23] MEDS: ATORVASTATIN 40 MG TABLET PO SCH (20:49)
[2020-08-24] MEDS: ALBUTEROL/IPRATROPIUM 3 ML NEB RESP TX SCH ×4 (00:19→21:13)
[2020-08-24] MEDS: HEPARIN 5,000 UNIT/1 ML VIAL SUBCUT SCH ×3 (06:24→20:47)
[2020-08-24 09:05] LABS: Basophils # 0.1 10*3/uL (0.0-0.2); Basophils % 0.4 % (0.0-0.8); Eosinophils # 0.2 10*3/uL (0.0-0.87); Eosinophils % 1.6 % (0.00-10.9); Hematocrit 26.1 VOL% (42.0-52.0); Hemoglobin 8.4 GM/DL (14.0-18.0); Immature Granulocytes % 0.5 %; Immature Granulocytes Absolute 0.06 #; Lymphocytes # 2.1 10*3/uL (1.4-4.0); Lymphocytes % 17.9 % (21.2-54.2); Mean Corpuscular HGB Conc 32.2 GM/DL (32-36); Mean Corpuscular Volume 89.1 FL (87-102); Mean Platelet Volume 13.1 FL (9.6-12.0); Monocytes % 8.6 % (1.7-12.7); Platelet Count 123 T/CUMM (130-400); Red Blood Count 2.93 MC/CUMM (3.8-5.5); Red Cell Distribution Width 16.1 % (9.3-17.3); White Blood Count 11.6 T/CUMM (4-12)
[2020-08-24] MEDS: LINACLOTIDE 145 MCG CAPSULE PO SCH (09:15)
[2020-08-24] MEDS: FUROSEMIDE 40 MG/4 ML VIAL IV SCH ×2 (09:15→16:14)
[2020-08-24] MEDS: SODIUM BICARBONATE 650 MG TABLET PO SCH ×2 (09:15→20:46)
[2020-08-24] MEDS: metOLazone 5 MG TABLET PO SCH (09:16)
[2020-08-24] MEDS: carvediloL 12.5 MG TABLET PO SCH ×2 (09:16→20:47)
[2020-08-24] MEDS: ISOSORBIDE MONONITRATE 60 MG TABLET PO SCH (09:16)
[2020-08-24] MEDS: MULTIVITAMIN (CENTRUM) TABLET PO SCH (09:16)
[2020-08-24] MEDS: CIPROFLOXACIN/DEXAMETHASONE OTIC SUSP 7.5 ML BOTTLE RIGHT EAR SCH ×2 (09:16→20:47)
[2020-08-24] MEDS: TAMSULOSIN 0.4 MG CAPSULE PO SCH (09:16)
[2020-08-24] MEDS: ASPIRIN EC 81 MG TABLET PO SCH (09:16)
[2020-08-24] MEDS: allopurinoL 100 MG TABLET PO SCH ×2 (09:16→20:46)
[2020-08-24 09:24] LABS: Anisocytosis 1+; Hypochromasia 2+; Target Cells Few
[2020-08-24 09:25] LABS: Ovalocytes Slight; Platelet Estimate Adequate
[2020-08-24 09:26] LABS: Albumin 2.6 G/DL (3.4-5.0); Bilirubin,Total 0.5 MG/DL (0.2-1.0); Calcium 8.2 MG/DL (8.5-10.1); Osmolality,Calculated 313.1 MOS/KG (273-304); Total Protein 6.8 G/DL (6.4-8.3)
[2020-08-24] MEDS ORDERED: EPOETIN ALFA-EPBX 2,000 UNIT/ML VIAL SUBCUT ONE (12:40)
[2020-08-24] MEDS: cefTRIAXone 1,000 MG in SYRINGE 1 EACH IV SCH (12:49)
[2020-08-24] MEDS: ATORVASTATIN 40 MG TABLET PO SCH (20:47)
[2020-08-25] MEDS: ALBUTEROL/IPRATROPIUM 3 ML NEB RESP TX SCH ×4 (00:42→18:58)
[2020-08-25] MEDS: HEPARIN 5,000 UNIT/1 ML VIAL SUBCUT SCH ×3 (03:40→21:18)
[2020-08-25 05:45] LABS: Basophils % 0.3 % (0.0-0.8); Eosinophils # 0.1 10*3/uL (0.0-0.87); Eosinophils % 1.1 % (0.00-10.9); Hematocrit 22.7 VOL% (42.0-52.0); Hemoglobin 7.5 GM/DL (14.0-18.0); Immature Granulocytes % 0.7 %; Immature Granulocytes Absolute 0.08 #; Lymphocytes # 2.4 10*3/uL (1.4-4.0); Lymphocytes % 20.6 % (21.2-54.2); Mean Corpuscular Volume 87.6 FL (87-102); Mean Platelet Volume 14.4 FL (9.6-12.0); Monocytes % 10.6 % (1.7-12.7); Neutrophils % 66.7 % (38.7-73.9); Platelet Count 114 T/CUMM (130-400); Red Blood Count 2.59 MC/CUMM (3.8-5.5); Red Cell Distribution Width 15.8 % (9.3-17.3); White Blood Count 11.5 T/CUMM (4-12)
[2020-08-25 06:01] LABS: Albumin 2.4 G/DL (3.4-5.0); Bilirubin,Total 0.7 MG/DL (0.2-1.0); Calcium 7.9 MG/DL (8.5-10.1); Osmolality,Calculated 307.5 MOS/KG (273-304); Total Protein 6.6 G/DL (6.4-8.3)
[2020-08-25] MEDS: TAMSULOSIN 0.4 MG CAPSULE PO SCH (09:50)
[2020-08-25] MEDS: carvediloL 12.5 MG TABLET PO SCH ×2 (09:50→21:16)
[2020-08-25] MEDS: SODIUM BICARBONATE 650 MG TABLET PO SCH ×2 (09:50→21:17)
[2020-08-25] MEDS: LINACLOTIDE 145 MCG CAPSULE PO SCH (09:50)
[2020-08-25] MEDS: ASPIRIN EC 81 MG TABLET PO SCH (09:50)
[2020-08-25] MEDS: ISOSORBIDE MONONITRATE 60 MG TABLET PO SCH (09:50)
[2020-08-25] MEDS: allopurinoL 100 MG TABLET PO SCH ×2 (09:50→21:17)
[2020-08-25] MEDS: MULTIVITAMIN (CENTRUM) TABLET PO SCH (09:50)
[2020-08-25] MEDS: metOLazone 5 MG TABLET PO SCH (09:50)
[2020-08-25] MEDS: CIPROFLOXACIN/DEXAMETHASONE OTIC SUSP 7.5 ML BOTTLE RIGHT EAR SCH ×2 (09:51→21:18)
[2020-08-25] MEDS: cefTRIAXone 1,000 MG in SYRINGE 1 EACH IV SCH (12:35)
[2020-08-25] MEDS: ACETAMINOPHEN 325 MG TABLET PO PRN (12:36)
[2020-08-25] MEDS: ATORVASTATIN 40 MG TABLET PO SCH (21:16)
[2020-08-26] MEDS: ALBUTEROL/IPRATROPIUM 3 ML NEB RESP TX SCH ×4 (01:12→19:48)
[2020-08-26] MEDS: HEPARIN 5,000 UNIT/1 ML VIAL SUBCUT SCH ×3 (04:01→21:46)
[2020-08-26 05:38] LABS: Basophils % 0.3 % (0.0-0.8); Eosinophils # 0.1 10*3/uL (0.0-0.87); Eosinophils % 0.4 % (0.00-10.9); Hematocrit 24.3 VOL% (42.0-52.0); Immature Granulocytes % 0.6 %; Immature Granulocytes Absolute 0.07 #; Lymphocytes # 1.5 10*3/uL (1.4-4.0); Lymphocytes % 12.8 % (21.2-54.2); Mean Corpuscular HGB Conc 32.9 GM/DL (32-36); Mean Corpuscular Volume 87.4 FL (87-102); Mean Platelet Volume 14.7 FL (9.6-12.0); Neutrophils % 74.9 % (38.7-73.9); Platelet Count 114 T/CUMM (130-400); Red Blood Count 2.78 MC/CUMM (3.8-5.5); Red Cell Distribution Width 15.8 % (9.3-17.3); White Blood Count 11.5 T/CUMM (4-12)
[2020-08-26 06:11] LABS: Albumin 2.6 G/DL (3.4-5.0); Bilirubin,Total 0.7 MG/DL (0.2-1.0); Calcium 8.4 MG/DL (8.5-10.1); Osmolality,Calculated 315.4 MOS/KG (273-304)
[2020-08-26 06:47] LABS: Hypochromasia 1+; Microcytosis 1+
[2020-08-26] MEDS: metOLazone 5 MG TABLET PO SCH (09:20)
[2020-08-26] MEDS: ISOSORBIDE MONONITRATE 60 MG TABLET PO SCH (09:20)
[2020-08-26] MEDS: SODIUM BICARBONATE 650 MG TABLET PO SCH ×2 (09:20→21:47)
[2020-08-26] MEDS: carvediloL 12.5 MG TABLET PO SCH ×2 (09:20→21:47)
[2020-08-26] MEDS: TAMSULOSIN 0.4 MG CAPSULE PO SCH (09:20)
[2020-08-26] MEDS: allopurinoL 100 MG TABLET PO SCH ×2 (09:20→21:48)
[2020-08-26] MEDS: ASPIRIN EC 81 MG TABLET PO SCH (09:20)
[2020-08-26] MEDS: MULTIVITAMIN (CENTRUM) TABLET PO SCH (09:20)
[2020-08-26] MEDS: CIPROFLOXACIN/DEXAMETHASONE OTIC SUSP 7.5 ML BOTTLE RIGHT EAR SCH ×2 (09:21→21:48)
[2020-08-26] MEDS: LINACLOTIDE 145 MCG CAPSULE PO SCH (09:22)
[2020-08-26] MEDS: cefTRIAXone 1,000 MG in SYRINGE 1 EACH IV SCH (13:05)
[2020-08-26] MEDS: ATORVASTATIN 40 MG TABLET PO SCH (21:47)
[2020-08-27] MEDS: ALBUTEROL/IPRATROPIUM 3 ML NEB RESP TX SCH ×4 (02:22→19:27)
[2020-08-27] MEDS: HEPARIN 5,000 UNIT/1 ML VIAL SUBCUT SCH ×3 (03:29→20:12)
[2020-08-27 06:21] LABS: Basophils % 0.4 % (0.0-0.8); Eosinophils # 0.1 10*3/uL (0.0-0.87); Immature Granulocytes % 0.3 %; Immature Granulocytes Absolute 0.03 #; Lymphocytes # 1.3 10*3/uL (1.4-4.0); Lymphocytes % 14.4 % (21.2-54.2); Mean Corpuscular Volume 88.3 FL (87-102); Mean Platelet Volume 13.7 FL (9.6-12.0); Monocytes % 9.5 % (1.7-12.7); Neutrophils % 74.4 % (38.7-73.9); Platelet Count 111 T/CUMM (130-400); Red Blood Count 2.83 MC/CUMM (3.8-5.5); Red Cell Distribution Width 15.8 % (9.3-17.3); White Blood Count 9.3 T/CUMM (4-12)
[2020-08-27 06:39] LABS: Hypochromasia 2+; Microcytosis 1+; Ovalocytes Slight; Platelet Estimate Decreased
[2020-08-27 06:55] LABS: Albumin 2.4 G/DL (3.4-5.0); Bilirubin,Total 0.6 MG/DL (0.2-1.0); Calcium 8.4 MG/DL (8.5-10.1); Osmolality,Calculated 315.2 MOS/KG (273-304); Total Protein 6.8 G/DL (6.4-8.3)
[2020-08-27] MEDS: LINACLOTIDE 145 MCG CAPSULE PO SCH (09:14)
[2020-08-27] MEDS: metOLazone 5 MG TABLET PO SCH (09:15)
[2020-08-27] MEDS: allopurinoL 100 MG TABLET PO SCH ×2 (09:15→20:10)
[2020-08-27] MEDS: carvediloL 12.5 MG TABLET PO SCH ×2 (09:15→20:10)
[2020-08-27] MEDS: TAMSULOSIN 0.4 MG CAPSULE PO SCH (09:15)
[2020-08-27] MEDS: SODIUM BICARBONATE 650 MG TABLET PO SCH ×2 (09:15→20:10)
[2020-08-27] MEDS: MULTIVITAMIN (CENTRUM) TABLET PO SCH (09:15)
[2020-08-27] MEDS: ISOSORBIDE MONONITRATE 60 MG TABLET PO SCH (09:15)
[2020-08-27] MEDS: CIPROFLOXACIN/DEXAMETHASONE OTIC SUSP 7.5 ML BOTTLE RIGHT EAR SCH ×2 (09:23→20:12)
[2020-08-27] MEDS: ASPIRIN EC 81 MG TABLET PO SCH (09:30)
[2020-08-27] MEDS: cefTRIAXone 1,000 MG in SYRINGE 1 EACH IV SCH (10:04)
[2020-08-27 17:10] LABS: Hepatitis B Surface Ag Quant 0.25 Index; Hepatitis B Surface Ag Result Negative (Negative); Hepatitis C Virus Ab Quant < 0.02 Index; Hepatitis C Virus Ab Result Negative (Negative)
[2020-08-27] MEDS: ATORVASTATIN 40 MG TABLET PO SCH (20:10)
[2020-08-27] MEDS ORDERED: FUROSEMIDE 40 MG/4 ML VIAL IV ONE (22:04)
[2020-08-28] MEDS: ALBUTEROL/IPRATROPIUM 3 ML NEB RESP TX SCH ×4 (01:30→19:41)
[2020-08-28] MEDS: HEPARIN 5,000 UNIT/1 ML VIAL SUBCUT SCH ×3 (04:18→20:26)
[2020-08-28 06:30] LABS: Basophils % 0.3 % (0.0-0.8); Eosinophils % 0.1 % (0.00-10.9); Hematocrit 22.3 VOL% (42.0-52.0); Hemoglobin 7.2 GM/DL (14.0-18.0); Immature Granulocytes % 0.6 %; Immature Granulocytes Absolute 0.07 #; Lymphocytes # 1.3 10*3/uL (1.4-4.0); Lymphocytes % 10.7 % (21.2-54.2); Mean Corpuscular HGB Conc 32.3 GM/DL (32-36); Mean Corpuscular Volume 87.1 FL (87-102); Mean Platelet Volume 14.2 FL (9.6-12.0); Monocytes % 8.4 % (1.7-12.7); Neutrophils % 79.9 % (38.7-73.9); Platelet Count 127 T/CUMM (130-400); Red Blood Count 2.56 MC/CUMM (3.8-5.5); Red Cell Distribution Width 15.9 % (9.3-17.3)
[2020-08-28 07:00] LABS: Albumin 2.4 G/DL (3.4-5.0); Bilirubin,Total 0.9 MG/DL (0.2-1.0); Calcium 8.4 MG/DL (8.5-10.1); Osmolality,Calculated 320.5 MOS/KG (273-304); Total Protein 6.6 G/DL (6.4-8.3)
[2020-08-28] MEDS: LINACLOTIDE 145 MCG CAPSULE PO SCH (08:38)
[2020-08-28 08:39] LABS: Calcium 8.6 MG/DL (8.5-10.1); Osmolality,Calculated 320.5 MOS/KG (273-304)
[2020-08-28] MEDS: SODIUM BICARBONATE 650 MG TABLET PO SCH (10:37)
[2020-08-28] MEDS: TAMSULOSIN 0.4 MG CAPSULE PO SCH (13:02)
[2020-08-28] MEDS: allopurinoL 100 MG TABLET PO SCH ×2 (13:03→20:26)
[2020-08-28] MEDS: ISOSORBIDE MONONITRATE 60 MG TABLET PO SCH (13:03)
[2020-08-28] MEDS: ASPIRIN EC 81 MG TABLET PO SCH (13:03)
[2020-08-28] MEDS: MULTIVITAMIN (CENTRUM) TABLET PO SCH (13:03)
[2020-08-28] MEDS: carvediloL 12.5 MG TABLET PO SCH ×2 (13:03→20:26)
[2020-08-28] MEDS: CIPROFLOXACIN/DEXAMETHASONE OTIC SUSP 7.5 ML BOTTLE RIGHT EAR SCH ×2 (13:04→20:26)
[2020-08-28] MEDS: cefTRIAXone 1,000 MG in SYRINGE 1 EACH IV SCH (13:56)
[2020-08-28] MEDS: ATORVASTATIN 40 MG TABLET PO SCH (20:26)
[2020-08-29] MEDS: ALBUTEROL/IPRATROPIUM 3 ML NEB RESP TX SCH ×4 (00:05→18:58)
[2020-08-29] MEDS: HEPARIN 5,000 UNIT/1 ML VIAL SUBCUT SCH ×3 (04:00→21:00)
[2020-08-29 06:20] LABS: Albumin 2.2 G/DL (3.4-5.0); Bilirubin,Total 0.6 MG/DL (0.2-1.0); Calcium 8.5 MG/DL (8.5-10.1); Osmolality,Calculated 300.4 MOS/KG (273-304); Total Protein 6.6 G/DL (6.4-8.3)
[2020-08-29 07:00] LABS: Basophils % 0.4 % (0.0-0.8); Eosinophils # 0.1 10*3/uL (0.0-0.87); Eosinophils % 1.3 % (0.00-10.9); Hematocrit 22.8 VOL% (42.0-52.0); Hemoglobin 7.3 GM/DL (14.0-18.0); Immature Granulocytes % 0.4 %; Immature Granulocytes Absolute 0.04 #; Lymphocytes # 1.6 10*3/uL (1.4-4.0); Lymphocytes % 16.4 % (21.2-54.2); Mean Platelet Volume 14.7 FL (9.6-12.0); NRBC # 0.02 10*3/uL; Neutrophils % 72.5 % (38.7-73.9); Platelet Count 139 T/CUMM (130-400); Red Blood Count 2.62 MC/CUMM (3.8-5.5); Red Cell Distribution Width 16.1 % (9.3-17.3); White Blood Count 9.5 T/CUMM (4-12)
[2020-08-29 07:02] LABS: Hypochromasia 1+; Microcytosis 1+
[2020-08-29 07:03] LABS: Platelet Estimate Normal
[2020-08-29] MEDS: cefTRIAXone 1,000 MG in SYRINGE 1 EACH IV SCH (12:12)
[2020-08-29] MEDS: carvediloL 12.5 MG TABLET PO SCH ×2 (12:12→20:57)
[2020-08-29] MEDS: MULTIVITAMIN (CENTRUM) TABLET PO SCH (12:12)
[2020-08-29] MEDS: CIPROFLOXACIN/DEXAMETHASONE OTIC SUSP 7.5 ML BOTTLE RIGHT EAR SCH ×2 (12:12→20:57)
[2020-08-29] MEDS: TAMSULOSIN 0.4 MG CAPSULE PO SCH (12:12)
[2020-08-29] MEDS: ASPIRIN EC 81 MG TABLET PO SCH (12:12)
[2020-08-29] MEDS: LINACLOTIDE 145 MCG CAPSULE PO SCH (12:12)
[2020-08-29] MEDS: ISOSORBIDE MONONITRATE 60 MG TABLET PO SCH (12:12)
[2020-08-29] MEDS: ACETAMINOPHEN 325 MG TABLET PO PRN (12:12)
[2020-08-29] MEDS: allopurinoL 100 MG TABLET PO SCH ×2 (12:12→20:55)
[2020-08-29] MEDS: CLOTRIMAZOLE 1% CREAM 15 GM TUBE TOP SCH ×2 (13:29→20:57)
[2020-08-29] MEDS ORDERED: EPOETIN ALFA-EPBX 2,000 UNIT/ML VIAL IV PRN (14:30)
[2020-08-29] MEDS: ATORVASTATIN 40 MG TABLET PO SCH (20:55)
[2020-08-30] MEDS: ALBUTEROL/IPRATROPIUM 3 ML NEB RESP TX SCH ×4 (00:29→21:43)
[2020-08-30] MEDS: HEPARIN 5,000 UNIT/1 ML VIAL SUBCUT SCH ×3 (05:16→20:40)
[2020-08-30 05:44] LABS: Basophils % 0.3 % (0.0-0.8); Eosinophils # 0.2 10*3/uL (0.0-0.87); Eosinophils % 2.1 % (0.00-10.9); Hematocrit 24.4 VOL% (42.0-52.0); Hemoglobin 7.8 GM/DL (14.0-18.0); Immature Granulocytes % 0.6 %; Immature Granulocytes Absolute 0.06 #; Lymphocytes # 1.5 10*3/uL (1.4-4.0); Lymphocytes % 15.2 % (21.2-54.2); Mean Corpuscular Volume 88.4 FL (87-102); Mean Platelet Volume 13.5 FL (9.6-12.0); NRBC # 0.02 10*3/uL; Neutrophils % 69.8 % (38.7-73.9); Platelet Count 174 T/CUMM (130-400); Red Blood Count 2.76 MC/CUMM (3.8-5.5); Red Cell Distribution Width 16.4 % (9.3-17.3); White Blood Count 9.8 T/CUMM (4-12)
[2020-08-30 06:06] LABS: Hypochromasia 2+; Microcytosis 1+; Ovalocytes Slight; Platelet Estimate Adequate
[2020-08-30 06:19] LABS: Calcium 8.4 MG/DL (8.5-10.1)
[2020-08-30] MEDS: MULTIVITAMIN (CENTRUM) TABLET PO SCH (13:47)
[2020-08-30] MEDS: carvediloL 12.5 MG TABLET PO SCH ×2 (13:47→20:40)
[2020-08-30] MEDS: CLOTRIMAZOLE 1% CREAM 15 GM TUBE TOP SCH ×2 (13:47→20:41)
[2020-08-30] MEDS: ASPIRIN EC 81 MG TABLET PO SCH (13:47)
[2020-08-30] MEDS: CIPROFLOXACIN/DEXAMETHASONE OTIC SUSP 7.5 ML BOTTLE RIGHT EAR SCH ×2 (13:47→20:41)
[2020-08-30] MEDS: TAMSULOSIN 0.4 MG CAPSULE PO SCH (13:47)
[2020-08-30] MEDS: LINACLOTIDE 145 MCG CAPSULE PO SCH (13:47)
[2020-08-30] MEDS: ISOSORBIDE MONONITRATE 60 MG TABLET PO SCH (13:47)
[2020-08-30] MEDS: allopurinoL 100 MG TABLET PO SCH ×2 (13:48→20:40)
[2020-08-30] MEDS: ATORVASTATIN 40 MG TABLET PO SCH (20:40)
[2020-08-31] MEDS: ALBUTEROL/IPRATROPIUM 3 ML NEB RESP TX SCH ×3 (01:36→14:33)
[2020-08-31] MEDS: HEPARIN 5,000 UNIT/1 ML VIAL SUBCUT SCH (04:18)
[2020-08-31 06:43] LABS: Basophils # 0.1 10*3/uL (0.0-0.2); Basophils % 0.7 % (0.0-0.8); Eosinophils # 0.2 10*3/uL (0.0-0.87); Eosinophils % 2.3 % (0.00-10.9); Hematocrit 25.5 VOL% (42.0-52.0); Hemoglobin 7.9 GM/DL (14.0-18.0); Immature Granulocytes % 0.8 %; Immature Granulocytes Absolute 0.08 #; Lymphocytes # 1.6 10*3/uL (1.4-4.0); Lymphocytes % 15.7 % (21.2-54.2); Mean Corpuscular Volume 90.4 FL (87-102); Mean Platelet Volume 13.8 FL (9.6-12.0); Monocytes % 12.1 % (1.7-12.7); NRBC # 0.02 10*3/uL; Neutrophils % 68.4 % (38.7-73.9); Platelet Count 202 T/CUMM (130-400); Red Blood Count 2.82 MC/CUMM (3.8-5.5); Red Cell Distribution Width 16.4 % (9.3-17.3); White Blood Count 9.9 T/CUMM (4-12)
[2020-08-31] MEDS ORDERED: OXYMETAZOLINE 0.05% NASAL SPRAY 15 ML BOTTLE ONE (06:46)
[2020-08-31 06:57] LABS: Calcium 8.7 MG/DL (8.5-10.1); Osmolality,Calculated 277.8 MOS/KG (273-304)
[2020-08-31 07:47] LABS: Hypochromasia 2+; Polychromasia Slight; Target Cells Few
[2020-08-31 07:48] LABS: Anisocytosis 1+; Microcytosis 1+; Platelet Estimate Normal
[2020-08-31] MEDS ORDERED: SEVOFLURANE 1 UNIT/15 MINUTE INH ONE (08:51)
[2020-08-31] MEDS ORDERED: ETOMIDATE 40 MG/20 ML VIAL IV ONE (08:51)
[2020-08-31] MEDS ORDERED: ONDANSETRON 4 MG/2 ML VIAL ONE (08:51)
[2020-08-31] MEDS ORDERED: LIDOCAINE 2% 5 ML VIAL ONE (08:51)
[2020-08-31] MEDS ORDERED: DEXAMETHASONE 4 MG/1 ML VIAL ONE (08:51)
[2020-08-31] MEDS: LINACLOTIDE 145 MCG CAPSULE PO SCH (10:09)
[2020-08-31] MEDS: ASPIRIN EC 81 MG TABLET PO SCH (10:11)
[2020-08-31] MEDS: TAMSULOSIN 0.4 MG CAPSULE PO SCH (10:11)
[2020-08-31] MEDS: MULTIVITAMIN (CENTRUM) TABLET PO SCH (10:11)
[2020-08-31] MEDS: ISOSORBIDE MONONITRATE 60 MG TABLET PO SCH (10:11)
[2020-08-31] MEDS: carvediloL 12.5 MG TABLET PO SCH (10:12)
[2020-08-31] MEDS: allopurinoL 100 MG TABLET PO SCH (10:12)
[2020-08-31] MEDS: CIPROFLOXACIN/DEXAMETHASONE OTIC SUSP 7.5 ML BOTTLE RIGHT EAR SCH (10:14)
[2020-08-31] MEDS: CLOTRIMAZOLE 1% CREAM 15 GM TUBE TOP SCH (10:14)
[2020-08-31 12:34] VITALS: BP 112/42
== END 2020-08-31 14:30 | disposition home health service (06) | DRG 291 ==
LOC: N.TELES → SUATTDRO 06:17
PROVIDERS: ADMIT Internal Medicine; ATTEND Internal Medicine

== ENCOUNTER 2021-09-20 15:57 | Inpatient (IN) ==
[2021-09-20] MEDS ORDERED: DEXTROSE 50% 25 GM/50 ML SYRINGE IV ONE (16:58)
[2021-09-20] MEDS ORDERED: DEXTROSE 50% 25 GM/50 ML VIAL IV STA (16:58)
[2021-09-20 17:06] LABS: ABG Base Excess 7.1 MMOL/L (-2.5-2.5); ABG HCO3 30.9 MMOL/L (20-26); ABG Oxygen Saturation 96.5 % (95-100); ABG PCO2 30.9 MM HG (35-48); ABG PO2 73.6 MM HG (80-95)
[2021-09-20 17:35] LABS: Basophils % 0.1 % (0.0-0.8); Hematocrit 28.8 VOL% (42.0-52.0); Hemoglobin 9.8 GM/DL (14.0-18.0); Immature Granulocytes % 1.6 %; Immature Granulocytes Absolute 0.36 #; Lymphocytes # 1.3 10*3/uL (1.4-4.0); Mean Corpuscular Volume 86.5 FL (87-102); Mean Platelet Volume 13.6 FL (9.6-12.0); Monocytes % 4.8 % (1.7-12.7); NRBC # 0.03 10*3/uL; Neutrophils % 87.5 % (38.7-73.9); Platelet Count 200 T/CUMM (130-400); Red Blood Count 3.33 MC/CUMM (3.8-5.5); Red Cell Distribution Width 16.9 % (9.3-17.3); White Blood Count 22.4 T/CUMM (4-12)
[2021-09-20 17:56] LABS: Band Neutrophils 2 % (0-10); Lymphocytes 9 % (20-55); Segmented Neutrophils 87 % (50-85); Total Cells Counted 100
[2021-09-20 17:57] LABS: Hypochromia 1+; Target Cells 1+
[2021-09-20 17:58] LABS: Burr Cells Slight
[2021-09-20 17:59] LABS: Platelet Estimate Normal
[2021-09-20] MEDS ORDERED: SODIUM CHLORIDE 0.9% 2,000 ML IV STA (19:44)
[2021-09-20] MEDS ORDERED: PIPERACILLIN/TAZOBACTAM 3,375 MG in SODIUM CHLORIDE 0.9% 100 ML IV STA (19:44)
[2021-09-20] MEDS ORDERED: SODIUM CHLORIDE 0.9% 500 ML IV STA (19:48)
[2021-09-20] MEDS ORDERED: GLUCAGON 1 MG VIAL IM PRN (20:13)
[2021-09-20] MEDS ORDERED: ONDANSETRON 4 MG/2 ML VIAL IV PRN (20:29)
[2021-09-20] MEDS ORDERED: DOCUSATE SODIUM 100 MG CAPSULE PO PRN (20:29)
[2021-09-20] MEDS ORDERED: VANCOMYCIN INJ 500 MG in SODIUM CHLORIDE 0.9% 100 ML IV PRN (21:41)
[2021-09-20] MEDS: HEPARIN 5,000 UNIT/1 ML VIAL SUBCUT SCH (22:15)
[2021-09-20] MEDS ORDERED: SODIUM CHLORIDE 0.9% 500 ML IV ONE (22:20)
[2021-09-20 22:21] LABS: Albumin 1.5 G/DL (3.4-5.0); Blood Urea Nitrogen 41 MG/DL (7-18); Calcium 7.9 MG/DL (8.5-10.1); Carbon Dioxide 27 MMOL/L (21-32); Glucose 181 MG/DL (74-106); Potassium 4.5 MMOL/L (3.5-5.1); Sodium 136 MMOL/L (136-145)
[2021-09-20 22:22] LABS: Alanine Aminotransferase 102 U/L (16-61); Aspartate Amino Transferase 334 U/L (0-37); Estimated Glom Filtration Rate 11 ML/MIN
[2021-09-20 22:24] LABS: Total Protein 5.5 G/DL (6.4-8.2)
[2021-09-20 22:25] LABS: Alkaline Phosphatase 84 U/L (45-117)
[2021-09-20] MEDS: DEXTROSE 5% NACL 0.45% 1,000 ML IV SCH (23:19)
[2021-09-21] MEDS ORDERED: VANCOMYCIN INJ 1,250 MG in SODIUM CHLORIDE 0.9% 250 ML IV ONE (01:00)
[2021-09-21] MEDS: AZITHROMYCIN INJ 500 MG in SODIUM CHLORIDE 0.9% 250 ML IV SCH (01:14)
[2021-09-21] MEDS: ALBUTEROL 2.5 MG/3 ML NEB RESP TX SCH ×4 (01:49→19:40)
[2021-09-21 06:32] LABS: Basophils % 0.1 % (0.0-0.8); Hematocrit 29.9 VOL% (42.0-52.0); Immature Granulocytes % 1.4 %; Immature Granulocytes Absolute 0.31 #; Lymphocytes # 1.1 10*3/uL (1.4-4.0); Lymphocytes % 5.3 % (21.2-54.2); Mean Corpuscular HGB Conc 33.4 GM/DL (32-36); Mean Corpuscular Volume 87.4 FL (87-102); Mean Platelet Volume 13.6 FL (9.6-12.0); Monocytes % 4.5 % (1.7-12.7); NRBC # 0.03 10*3/uL; Neutrophils % 88.7 % (38.7-73.9); Platelet Count 209 T/CUMM (130-400); Red Blood Count 3.42 MC/CUMM (3.8-5.5); Red Cell Distribution Width 17.2 % (9.3-17.3); White Blood Count 21.5 T/CUMM (4-12)
[2021-09-21 06:54] LABS: Hypochromia 1+; Lymphocytes 5 % (20-55); Microcytosis 1+; Platelet Estimate Adequate; Segmented Neutrophils 91 % (50-85); Total Cells Counted 100
[2021-09-21 07:15] LABS: Calcium 7.7 MG/DL (8.5-10.1); Potassium 4.2 MMOL/L (3.5-5.1)
[2021-09-21] MEDS: PIPERACILLIN/TAZOBACTAM 3,375 MG in SODIUM CHLORIDE 0.9% 100 ML IV SCH ×2 (08:38→21:57)
[2021-09-21] MEDS: HEPARIN 5,000 UNIT/1 ML VIAL SUBCUT SCH ×2 (08:38→20:18)
[2021-09-21] MEDS: ASPIRIN EC 81 MG TABLET PO SCH (08:38)
[2021-09-21] MEDS: DEXTROSE 10% 250 ML BAG IV PRN ×2 (11:07→20:16)
[2021-09-21 11:52] LABS: ABG Base Excess 6.3 MMOL/L (-2.5-2.5); ABG HCO3 30.2 MMOL/L (20-26); ABG Oxygen Saturation 96.6 % (95-100); ABG PCO2 36.8 MM HG (35-48); ABG PH 7.513 (7.35-7.45); ABG PO2 78.7 MM HG (80-95); ABG TCO2 27.1 MMOL/L (23-27)
[2021-09-21] MEDS: carvediloL 12.5 MG TABLET PO SCH (16:15)
[2021-09-21] MEDS: SEVELAMER CARBONATE 800 MG TABLET PO SCH (16:15)
[2021-09-21] MEDS ORDERED: VANCOMYCIN INJ 500 MG in SODIUM CHLORIDE 0.9% 100 ML IV ONE (18:00)
[2021-09-21] MEDS: ACETAMINOPHEN 325 MG TABLET PO PRN (23:41)
[2021-09-22] MEDS: ALBUTEROL 2.5 MG/3 ML NEB RESP TX SCH ×4 (01:03→19:24)
[2021-09-22] MEDS: MIRTAZAPINE 15 MG TABLET PO SCH ×2 (01:30→20:46)
[2021-09-22] MEDS: AZITHROMYCIN INJ 500 MG in SODIUM CHLORIDE 0.9% 250 ML IV SCH (01:52)
[2021-09-22] MEDS: ACETAMINOPHEN 325 MG TABLET PO PRN (04:28)
[2021-09-22 06:12] LABS: Basophils % 0.1 % (0.0-0.8); Eosinophils % 0.1 % (0.00-10.9); Hematocrit 25.9 VOL% (42.0-52.0); Hemoglobin 8.7 GM/DL (14.0-18.0); Immature Granulocytes % 1.9 %; Immature Granulocytes Absolute 0.38 #; Lymphocytes # 1.6 10*3/uL (1.4-4.0); Lymphocytes % 8.4 % (21.2-54.2); Mean Corpuscular HGB Conc 33.6 GM/DL (32-36); Mean Corpuscular Volume 88.1 FL (87-102); Mean Platelet Volume 13.6 FL (9.6-12.0); Monocytes % 4.7 % (1.7-12.7); Neutrophils % 84.8 % (38.7-73.9); Platelet Count 224 T/CUMM (130-400); Red Blood Count 2.94 MC/CUMM (3.8-5.5); Red Cell Distribution Width 17.4 % (9.3-17.3); White Blood Count 19.6 T/CUMM (4-12)
[2021-09-22 06:41] LABS: Band Neutrophils 1 % (0-10); Hypochromia 1+; Lymphocytes 6 % (20-55); Microcytosis 1+; Platelet Estimate Adequate; Segmented Neutrophils 89 % (50-85); Target Cells Few; Total Cells Counted 100
[2021-09-22 06:52] LABS: Albumin 1.3 G/DL (3.4-5.0); Bilirubin,Total 1.6 MG/DL (0.20-1.00); Calcium 7.7 MG/DL (8.5-10.1); Osmolality,Calculated 283.4 MOS/KG (273-304); Potassium 4.3 MMOL/L (3.5-5.1); Total Protein 5.4 G/DL (6.4-8.2)
[2021-09-22 08:44] LABS: Hepatitis B Core IgM Quant 0.22 Index; Hepatitis B Surface Ag Quant 0.18 Index; Hepatitis B Surface Ag Result Non-Reactive (NonReactive); Hepatitis C Virus Ab Quant 0.08 Index; Hepatitis C Virus Ab Result Non-Reactive (NonReactive)
[2021-09-22] MEDS: PIPERACILLIN/TAZOBACTAM 3,375 MG in SODIUM CHLORIDE 0.9% 100 ML IV SCH ×2 (09:25→22:55)
[2021-09-22] MEDS: ATORVASTATIN 40 MG TABLET PO SCH (09:30)
[2021-09-22] MEDS: ASPIRIN EC 81 MG TABLET PO SCH (09:30)
[2021-09-22] MEDS: SEVELAMER CARBONATE 800 MG TABLET PO SCH ×3 (09:30→16:47)
[2021-09-22] MEDS: HEPARIN 5,000 UNIT/1 ML VIAL SUBCUT SCH ×2 (09:30→20:46)
[2021-09-22] MEDS: DEXTROSE 5% NACL 0.45% 1,000 ML IV SCH (09:31)
[2021-09-22] MEDS: carvediloL 12.5 MG TABLET PO SCH ×2 (09:31→16:47)
[2021-09-22] MEDS: DEXTROSE 10% 250 ML BAG IV PRN (20:46)
[2021-09-23] MEDS: AZITHROMYCIN INJ 500 MG in SODIUM CHLORIDE 0.9% 250 ML IV SCH (04:41)
[2021-09-23] MEDS ORDERED: SODIUM CHLORIDE 0.9% 500 ML IV ONE ×3 (04:58→17:21)
[2021-09-23] MEDS: DEXTROSE 10% 250 ML BAG IV PRN ×2 (05:03→22:05)
[2021-09-23 06:41] LABS: Basophils % 0.1 % (0.0-0.8); Hematocrit 23.6 VOL% (42.0-52.0); Hemoglobin 8.1 GM/DL (14.0-18.0); Immature Granulocytes % 1.7 %; Immature Granulocytes Absolute 0.37 #; Lymphocytes # 1.5 10*3/uL (1.4-4.0); Mean Corpuscular HGB Conc 34.3 GM/DL (32-36); Mean Corpuscular Volume 86.8 FL (87-102); Mean Platelet Volume 13.1 FL (9.6-12.0); Monocytes % 5.7 % (1.7-12.7); NRBC # 0.04 10*3/uL; Neutrophils % 85.5 % (38.7-73.9); Platelet Count 222 T/CUMM (130-400); Red Blood Count 2.72 MC/CUMM (3.8-5.5); Red Cell Distribution Width 17.2 % (9.3-17.3); White Blood Count 21.5 T/CUMM (4-12)
[2021-09-23 07:04] LABS: Hypochromia 1+; Lymphocytes 5 % (20-55); Platelet Estimate Adequate; Segmented Neutrophils 90 % (50-85); Total Cells Counted 100
[2021-09-23 07:05] LABS: Microcytosis 1+
[2021-09-23 07:23] LABS: Albumin 1.1 G/DL (3.4-5.0); Calcium 7.9 MG/DL (8.5-10.1); Osmolality,Calculated 284.1 MOS/KG (273-304); Potassium 4.6 MMOL/L (3.5-5.1); Total Protein 5.5 G/DL (6.4-8.2)
[2021-09-23] MEDS: ALBUTEROL 2.5 MG/3 ML NEB RESP TX SCH ×4 (07:45→21:41)
[2021-09-23] MEDS: PIPERACILLIN/TAZOBACTAM 3,375 MG in SODIUM CHLORIDE 0.9% 100 ML IV SCH ×2 (10:26→21:39)
[2021-09-23] MEDS: HEPARIN 5,000 UNIT/1 ML VIAL SUBCUT SCH ×2 (10:26→21:15)
[2021-09-23] MEDS: ATORVASTATIN 40 MG TABLET PO SCH (10:27)
[2021-09-23] MEDS: ASPIRIN EC 81 MG TABLET PO SCH (10:27)
[2021-09-23] MEDS: carvediloL 12.5 MG TABLET PO SCH ×2 (10:27→21:38)
[2021-09-23] MEDS: SEVELAMER CARBONATE 800 MG TABLET PO SCH ×3 (10:27→21:39)
[2021-09-23] MEDS ORDERED: LIDOCAINE 2% 5 ML VIAL ONE (15:24)
[2021-09-23] MEDS ORDERED: ROCURONIUM 50 MG/5 ML VIAL IV ONE (15:24)
[2021-09-23] MEDS ORDERED: SUCCINYLCHOLINE 200 MG/10 ML VIAL ONE (15:24)
[2021-09-23] MEDS ORDERED: ETOMIDATE 40 MG/20 ML VIAL IV ONE (15:24)
[2021-09-23] MEDS ORDERED: SEVOFLURANE 1 UNIT/15 MINUTE INH ONE (15:24)
[2021-09-23] MEDS ORDERED: fentaNYL 100 MCG/2 ML VIAL ONE (15:25)
[2021-09-23] MEDS ORDERED: ePHEDrine 50 MG/ML VIAL ONE (16:51)
[2021-09-23] MEDS ORDERED: EPINEPHrine 1 MG/ML VIAL ONE (16:52)
[2021-09-23] MEDS ORDERED: ceFAZolin 1,000 MG VIAL ONE (16:58)
[2021-09-23] MEDS ORDERED: SODIUM CHLORIDE 0.9% 1,000 ML IV PRN (16:58)
[2021-09-23] MEDS ORDERED: diphenhydrAMINE 50 MG/1 ML VIAL IV PRN (17:20)
[2021-09-23] MEDS ORDERED: PROMETHAZINE INJ 25 MG in SODIUM CHLORIDE 0.9% 50 ML IV PRN (17:20)
[2021-09-23] MEDS ORDERED: ONDANSETRON 4 MG/2 ML VIAL IV PRN (17:20)
[2021-09-23] MEDS ORDERED: HYDROmorphone 2 MG/1 ML VIAL IV PRN (17:20)
[2021-09-23] MEDS ORDERED: PHENYLEPHRINE 1 MG/10 ML SYRINGE IV ONE (17:22)
[2021-09-23] MEDS ORDERED: allopurinoL 100 MG TABLET PO PRN (17:36)
[2021-09-23] MEDS ORDERED: SUGAMMADEX 200 MG/2 ML VIAL IV ONE (17:38)
[2021-09-23 20:32] LABS: Calcium 7.4 MG/DL (8.5-10.1); Potassium 4.9 MMOL/L (3.5-5.1)
[2021-09-23] MEDS: MIRTAZAPINE 15 MG TABLET PO SCH (21:15)
[2021-09-23] MEDS: DEXTROSE 5% NACL 0.45% 1,000 ML IV SCH (21:41)
[2021-09-24] MEDS: ALBUTEROL 2.5 MG/3 ML NEB RESP TX SCH (00:08)
[2021-09-24] MEDS: ACETAMINOPHEN 325 MG TABLET PO PRN ×2 (01:15→04:35)
[2021-09-24] MEDS: AZITHROMYCIN INJ 500 MG in SODIUM CHLORIDE 0.9% 250 ML IV SCH (04:35)
[2021-09-24 04:38] VITALS: BP 106/52
[2021-09-24 05:15] LABS: Basophils % 0.1 % (0.0-0.8); Eosinophils % 0.1 % (0.00-10.9); Hematocrit 22.3 VOL% (42.0-52.0); Hemoglobin 7.6 GM/DL (14.0-18.0); Immature Granulocytes % 1.3 %; Immature Granulocytes Absolute 0.19 #; Lymphocytes # 1.2 10*3/uL (1.4-4.0); Mean Corpuscular HGB Conc 34.1 GM/DL (32-36); Mean Corpuscular Volume 87.5 FL (87-102); Mean Platelet Volume 13.7 FL (9.6-12.0); NRBC # 0.05 10*3/uL; Neutrophils % 86.5 % (38.7-73.9); Platelet Count 196 T/CUMM (130-400); Red Blood Count 2.55 MC/CUMM (3.8-5.5); White Blood Count 14.9 T/CUMM (4-12)
[2021-09-24 05:46] LABS: Hypochromia 1+; Lymphocytes 3 % (20-55); Microcytosis 1+; Nucleated Red Blood Cells 1 (0-5); Platelet Estimate Adequate; Segmented Neutrophils 96 % (50-85); Target Cells Few; Total Cells Counted 100
[2021-09-24 05:49] LABS: Calcium 6.2 MG/DL (8.5-10.1); Osmolality,Calculated 307.7 MOS/KG (273-304)
[2021-09-24] MEDS ORDERED: ASCORBIC ACID 500 MG TABLET PO SCH (09:00)
== END 2021-09-24 06:58 | disposition expired | DRG 981 ==
LOC: N.ED 15:57 → N.EDINP 20:04 → SUATTDRO 20:04 → N.3E 20:40
PROVIDERS: ADMIT Internal Medicine; ATTEND Internal Medicine